=== PATIENT | male | born 1945 | race Caucasian/White ===

== ENCOUNTER → 2017-03-09 | Outpatient (REF) | payer MEDICARE ==
[2017-03-09 13:07] LABS: MEAN CORPUSCULAR HEMOGLOBIN 31.2 pg (27.0-33.0); MEAN CORPUSCULAR HGB CONC 33.5 g/dl (32.0-36.5); MEAN CORPUSCULAR VOLUME 93.1 fl (80.0-96.0); RED CELL DISTRIBUTION WIDTH 12.6 % (11.5-14.5); WHITE BLOOD COUNT 6.5 K/mm3 (4.0-10.0)
[2017-03-09 21:43] LABS: ALBUMIN 4.3 GM/DL (3.2-5.2); ALBUMIN/GLOBULIN RATIO 1.39 (1.00-1.93); ALKALINE PHOSPHATASE 84 U/L (45-117); ALT/SGPT 27 U/L (12-78); ANION GAP 7 MEQ/L (8-16); AST/SGOT 17 U/L (15-37); BILIRUBIN,TOTAL 0.9 MG/DL (0.2-1.0); BLOOD UREA NITROGEN 20 MG/DL (7-18); CALCIUM LEVEL 8.9 MG/DL (8.8-10.2); CARBON DIOXIDE LEVEL 30 MEQ/L (21-32); CHLORIDE LEVEL 105 MEQ/L (98-107); CHOLESTEROL LEVEL 186 MG/DL (<200); GLOMERULAR FILTRATION RATE > 60.0 (>42); GLUCOSE, FASTING 86 MG/DL (83-110); POTASSIUM SERUM 4.5 MEQ/L (3.5-5.1); SODIUM LEVEL 142 MEQ/L (136-145); TOTAL PROTEIN 7.4 GM/DL (6.4-8.2); TRIGLYCERIDES LEVEL 104 MG/DL (<150)
== END ==
LOC: M SFHCADAM 10:00
PROVIDERS: ATTEND Family Medicine
DX: G43.001 Migraine without aura, not intractable, with status migrainosus (principal); I48.0 Paroxysmal atrial fibrillation; E78.5 Hyperlipidemia, unspecified; R97.20 Elevated prostate specific antigen [PSA]
CPT/HCPCS: 80053; 80061; 84153; 85027; G0463

== ENCOUNTER → 2017-05-11 | Outpatient (CLI) | payer MEDICARE ==
--- NOTE | 2017-05-11 12:54 | REP ---
PA and lateral chest: Comparison is 04/18/2012. There is are focal subsegmental infiltrates in the lateral segment right middle lobe as an interval change. There is a small right perihilar subsegmental infiltrate as an interval change. There is a small subsegmental infiltrate peripherally in the left lung as an interval change. The remainder of the lung cast are clear and unchanged. There are no pleural effusions. Cardiac size is normal. There are annuloplasty devices as an interval change. The lucius, mediastinum, and bony thorax are otherwise unremarkable. Impression: Multifocal bilateral subsegmental infiltrates as described. No pleural effusions. New annuloplasty devices. There are surgical clips in the abdominal right upper quadrant, unchanged. Signed by Rodriguez Jones MD 05/11/2017 12:45 P
== END ==
LOC: M ADAMS 10:38
PROVIDERS: ATTEND Family Medicine
DX: J18.9 Pneumonia, unspecified organism (principal)
CPT/HCPCS: 71020; G0463

== ENCOUNTER → 2017-07-17 | Outpatient (CLI) | payer MEDICARE ==
--- NOTE | 2017-07-17 09:27 | REP ---
Chest x-ray: Two views. History: Follow up community-acquired pneumonia. Comparison chest x-ray is from May 11, 2017. Findings: The lungs are well inflated and now clear. Heart is not enlarged. The patient is status post mitral valve replacement. A clamp like metallic device is seen along the left atrial appendage segment of the left heart border. This is unchanged. Heart is not enlarged. Pulmonary vasculature is not increased. There are clips in right upper quadrant of the abdomen. Biapical pleural thickening is seen unchanged. Impression: No active disease. Signed by Monty Hough MD 07/17/2017 10:56 A
== END ==
LOC: M ADAMS 08:55
PROVIDERS: ATTEND Physician Assistant
DX: J18.9 Pneumonia, unspecified organism (principal)

== ENCOUNTER → 2017-08-12 | Outpatient (CLI) | payer MEDICARE ==
--- NOTE | 2017-08-12 18:53 | REP ---
Clinical: Cough and fever. Technique: PA and lateral. Comparison: 07/17/2017. Findings: Mediastinum and cardiac silhouette are stable. The patient is status post mitral valve repair and clamp along the atrial appendage which remain stable. Lung cast demonstrate chronic changes a subtle right lower lobe opacity cannot be excluded. No effusion. No pneumothorax. Biapical scarring remains stable. Skeletal structures are intact. Impression: Cannot exclude subtle right lower lobe opacity. Signed by Dario Tracy MD 08/12/2017 06:44 P
== END ==
LOC: M RAD 18:18
PROVIDERS: ATTEND Physician Assistant
DX: R91.8 Other nonspecific abnormal finding of lung field (principal)

== ENCOUNTER → 2017-10-05 | Outpatient (REF) | payer MEDICARE ==
[2017-10-05 13:48] LABS: BLOOD UREA NITROGEN 19 MG/DL (7-18); CREATININE FOR GFR 1.06 MG/DL (0.70-1.30); GLOMERULAR FILTRATION RATE > 60.0 (>42)
== END ==
LOC: M LABDRAW1 11:09
PROVIDERS: ATTEND Family Medicine
DX: E78.4 Other hyperlipidemia (principal)

== ENCOUNTER → 2017-10-09 | Outpatient (CLI) | payer MEDICARE ==
[~2017-10-09] MED LIST: ISOVUE-370 76% 100ML VIAL (Q9967) As Ordered ONE
--- NOTE | 2017-10-09 12:00 | REP ---
Clinical: Recurrent pneumonia. Technique: Axial contrast enhanced images from the thoracic inlet to the upper abdomen using 100 ml Isovue 370 intravenous contrast material with coronal and sagittal re-formations. Findings: Small to moderate areas of presumed biapical scarring are appreciated along with mild chronic age related bronchiectasis. Area of chronic scarring in the subpleural right middle lobe (images 60 - 72) is identified. Few scattered, subtle areas of non solid ground-glass opacity in the lingula, basilar right middle lobe mid posterior left lower lobe and right are nonspecific findings and may represent residua from prior infiltrates, but small areas of acute pneumonia cannot be excluded and should be correlated clinically. No adenopathy. No significant consolidation, effusion, or pneumothorax. Mediastinum demonstrates normal thoracic aorta and evidence for prior mitral valve repair without cardiomegaly or pericardial effusion. Surrounding musculoskeletal structures are intact. Impression: Relatively chronic-appearing changes as described above. Few scattered ground-glass opacities likely represent chronic changes related to old infiltrates and less likely areas of acute pneumonia. However, correlation is recommended. Signed by Dario Tracy MD 10/09/2017 11:50 A
== END ==
LOC: M RAD 10:50
PROVIDERS: ATTEND Physician Assistant
DX: J18.9 Pneumonia, unspecified organism (principal)
CPT/HCPCS: 71260; Q9967

== ENCOUNTER 2018-03-31 09:11 | Emergency (ER) | payer MEDICARE ==
[2018-03-31 10:06] LABS: BASO % 0.3 % (0.0-1.0); EOS # 0.1 10^3/uL (0.0-0.50); EOS % 0.7 % (0.0-3.0); HEMATOCRIT 51.8 % (42.0-52.0); HEMOGLOBIN 18.5 g/dl (13.5-17.5); IMMATURE GRANULOCYTE % 0.4 % (0-3.0); LYMPH # 1.8 10^3/uL (1.5-4.5); LYMPH % 13.2 % (24.0-44.0); MEAN CORPUSCULAR HEMOGLOBIN 31.5 pg (27.0-33.0); MEAN CORPUSCULAR HGB CONC 35.7 g/dl (32.0-36.5); MEAN CORPUSCULAR VOLUME 88.2 fl (80.0-96.0); MONO # 1.4 10^3/uL (0.0-0.8); NEUTROPHILS # 10.3 10^3/uL (1.8-7.7); NEUTROPHILS % 75.4 % (36.0-66.0); PLATELET COUNT, AUTOMATED 170 10^3/uL (150-450); RED BLOOD COUNT 5.87 10^6/uL (4.30-6.10); RED CELL DISTRIBUTION WIDTH 12.4 % (11.5-14.5); WHITE BLOOD COUNT 13.6 10^3/uL (4.0-10.0)
[2018-03-31 10:33] LABS: ANION GAP 8 MEQ/L (8-16); BLOOD UREA NITROGEN 17 MG/DL (7-18); CALCIUM LEVEL 9.7 MG/DL (8.8-10.2); CARBON DIOXIDE LEVEL 27 MEQ/L (21-32); CHLORIDE LEVEL 101 MEQ/L (98-107); CPK CREATINE PHOSPHOKINASE 41 U/L (39-308); CREATININE FOR GFR 1.02 MG/DL (0.70-1.30); GLOMERULAR FILTRATION RATE > 60.0 (>42); GLUCOSE, FASTING 115 MG/DL (70-100); SODIUM LEVEL 136 MEQ/L (136-145); TROPONIN I < 0.02 NG/ML (< 0.10)
[2018-03-31 10:34] LABS: CK-MB VALUE MASS 1.1 NG/ML (<3.6); MB/CK RELATIVE INDEX 2.68 (< OR =4); NT-PRO BNP 985 PG/ML (<450)
[2018-04-03 00:09] LABS: Lyme Disease IgG/IgM Antibodie <0.91 ISR (0.00-0.90); Lyme Disease IgM Ab Quantitati <0.80 index (0.00-0.79)
== END 2018-03-31 15:10 | disposition home or self-care (01) ==
LOC: M ED 09:11
DX: G47.00 Insomnia, unspecified (principal); M79.606 Pain in leg, unspecified; I48.91 Unspecified atrial fibrillation; I67.2 Cerebral atherosclerosis; G31.9 Degenerative disease of nervous system, unspecified; Z98.890 Other specified postprocedural states; Z79.82 Long term (current) use of aspirin; Z88.1 Allergy status to other antibiotic agents; Z88.8 Allergy status to other drugs, medicaments and biological substances
CPT/HCPCS: 70551

== ENCOUNTER 2018-04-02 08:22 | Emergency (ER) | payer MEDICARE | END 2018-04-02 10:38 | disposition home or self-care (01) | LOC: M ED 08:22 | DX: M48.061 Spinal stenosis, lumbar region without neurogenic claudication (principal); M51.26 Other intervertebral disc displacement, lumbar region; R26.89 Other abnormalities of gait and mobility; I48.91 Unspecified atrial fibrillation; Z88.1 Allergy status to other antibiotic agents; Z79.899 Other long term (current) drug therapy; Z79.82 Long term (current) use of aspirin | CPT/HCPCS: 72131 ==

== ENCOUNTER → 2018-04-03 | Outpatient (REF) | payer MEDICARE ==
[2018-04-03 19:53] LABS: BASO % 0.2 % (0.0-1.0); EOS # 0.1 10^3/uL (0.0-0.50); EOS % 0.5 % (0.0-3.0); HEMATOCRIT 52.1 % (42.0-52.0); HEMOGLOBIN 18.3 g/dl (13.5-17.5); LYMPH # 2.2 10^3/uL (1.5-4.5); LYMPH % 11.9 % (24.0-44.0); MEAN CORPUSCULAR HEMOGLOBIN 31.7 pg (27.0-33.0); MEAN CORPUSCULAR HGB CONC 35.1 g/dl (32.0-36.5); MEAN CORPUSCULAR VOLUME 90.1 fl (80.0-96.0); MONO % 11.9 % (0.0-5.0); NEUTROPHILS # 13.6 10^3/uL (1.8-7.7); NEUTROPHILS % 74.5 % (36.0-66.0); PLATELET COUNT, AUTOMATED 223 10^3/uL (150-450); RED BLOOD COUNT 5.78 10^6/uL (4.30-6.10); RED CELL DISTRIBUTION WIDTH 12.6 % (11.5-14.5); WHITE BLOOD COUNT 18.2 10^3/uL (4.0-10.0)
[2018-04-03 20:01] LABS: C REACTIVE PROTEIN QUANTITATIV 1.42 MG/DL (0.00-0.30)
[2018-04-03 20:13] LABS: MONO # 2.2 10^3/uL (0.0-0.8); POSITIVE DIFF POS FLAG; SUSPECT SAMPLE POS FLAG
[2018-04-03 20:30] LABS: ERYTHROCYTE SEDIMENTATION RATE 2 mm/hr (0-20)
== END ==
LOC: M SFHCADAM 12:07
DX: M54.5 Low back pain (principal); R26.9 Unspecified abnormalities of gait and mobility; G47.01 Insomnia due to medical condition
CPT/HCPCS: 86140

== ENCOUNTER 2018-04-05 09:13 | Inpatient (IN) | payer MEDICARE ==
[2018-04-05] MEDS: VITAMIN D 1,000 INTERNATIONAL UNITS TABLET PO (09:00)
[2018-04-05] MEDS: ENOXAPARIN 40 MG/0.4 ML SYRINGE (J1650) SC (09:00)
[2018-04-05] MEDS: ASPIRIN 81 MG ENTERIC TAB PO (09:00)
[2018-04-05 10:05] LABS: VENOUS BASE EXCESS 0.8 (-2.0-2.0); VENOUS HCO3 23.9 MEQ/L (23.0-27.0); VENOUS O2 SATURATION 97.1 % (60.0-80.0); VENOUS PARTIAL PRESSURE CO2 34.4 mmHg (38.0-50.0); VENOUS PARTIAL PRESSURE O2 86.7 mmHg (30.0-50.0); VENOUS PH 7.459 UNITS (7.330-7.430); VENOUS STANDARD HCO3 25.1 MEQ/L; VENOUS TOTAL CO2 24.9 MEQ/L (24.0-28.0)
[2018-04-05 10:12] LABS: BASO # 0.1 10^3/uL (0.0-0.2); BASO % 0.4 % (0.0-1.0); EOS # 0.1 10^3/uL (0.0-0.50); EOS % 0.8 % (0.0-3.0); HEMATOCRIT 45.8 % (42.0-52.0); HEMOGLOBIN 16.9 g/dl (13.5-17.5); IMMATURE GRANULOCYTE % 1.1 % (0-3.0); LYMPH % 12.6 % (24.0-44.0); MEAN CORPUSCULAR HEMOGLOBIN 31.9 pg (27.0-33.0); MEAN CORPUSCULAR VOLUME 86.6 fl (80.0-96.0); NEUTROPHILS # 11.3 10^3/uL (1.8-7.7); NEUTROPHILS % 72.1 % (36.0-66.0); PLATELET COUNT, AUTOMATED 189 10^3/uL (150-450); RED BLOOD COUNT 5.29 10^6/uL (4.30-6.10); RED CELL DISTRIBUTION WIDTH 12.1 % (11.5-14.5); WHITE BLOOD COUNT 15.7 10^3/uL (4.0-10.0)
[2018-04-05 10:14] LABS: POSITIVE DIFF POS FLAG
[2018-04-05 10:15] LABS: MEAN CORPUSCULAR HGB CONC 36.9 g/dl (32.0-36.5)
[2018-04-05 10:22] LABS: INR 1.03; PROTHROMBIN TIME 13.6 SECONDS (12.4-14.5)
[2018-04-05 10:24] LABS: OSMOLALITY SERUM 268 MOSM/KG (280-301)
[2018-04-05 10:28] LABS: AMMONIA 21 uMOL/L (<32)
[2018-04-05 10:35] LABS: ACETAMINOPHEN LEVEL < 2.0 UG/ML (10.0-30.0); ALBUMIN 3.9 GM/DL (3.2-5.2); ALBUMIN/GLOBULIN RATIO 1.15 (1.00-1.93); ALKALINE PHOSPHATASE 102 U/L (45-117); ALT/SGPT 39 U/L (12-78); ANION GAP 9 MEQ/L (8-16); AST/SGOT 24 U/L (7-37); BILIRUBIN,DIRECT 0.5 MG/DL (0.0-0.2); BILIRUBIN,TOTAL 1.4 MG/DL (0.2-1.0); BLOOD UREA NITROGEN 23 MG/DL (7-18); CALCIUM LEVEL 8.6 MG/DL (8.8-10.2); CARBON DIOXIDE LEVEL 25 MEQ/L (21-32); CHLORIDE LEVEL 94 MEQ/L (98-107); CPK CREATINE PHOSPHOKINASE 57 U/L (39-308); CREATININE FOR GFR 0.79 MG/DL (0.70-1.30); GLOMERULAR FILTRATION RATE > 60.0 (>42); GLUCOSE, FASTING 109 MG/DL (70-100); SALICYLATE LEVEL < 1.7 MG/DL (5.0-30.0); SODIUM LEVEL 128 MEQ/L (136-145); TOTAL PROTEIN 7.3 GM/DL (6.4-8.2); TROPONIN I < 0.02 NG/ML (< 0.10)
[2018-04-05 10:39] LABS: ETHYL ALCOHOL (ETHANOL) < 0.003 % (0.000-0.010)
[2018-04-05] MEDS: LABETALOL HCL 100 MG/20 ML VIAL IV (10:52)
[2018-04-05 11:06] LABS: CK-MB VALUE MASS 1.7 NG/ML (<3.6); MAGNESIUM LEVEL 2.3 MG/DL (1.8-2.4); MB/CK RELATIVE INDEX 2.98 (< OR =4)
[2018-04-05 11:07] LABS: THYROID STIMULATING HORMONE 0.638 uIU/ML (0.358-3.740)
[2018-04-05 11:12] LABS: APPEARANCE, URINE HAZY (CLEAR); BACTERIA, URINE AUTO NEGATIVE (NEGATIVE); BILIRUBIN, URINE AUTO NEGATIVE (NEGATIVE); BLOOD, URINE BLOOD 2+ (NEGATIVE); COLOR, URINE YELLOW (YELLOW); GLUCOSE, URINE (UA) AUTO 1+ mg/dL (NEGATIVE); KETONE, URINE AUTO NEGATIVE (NEGATIVE); LEUKOCYTE ESTERASE, URINE AUTO NEGATIVE (NEGATIVE); MUCUS, URINE SMALL (NEGATIVE); NITRITE, URINE AUTO NEGATIVE (NEGATIVE); PROTEIN, URINE AUTO 2+ mg/dL (NEGATIVE); RBC, URINE AUTO 33 /HPF (0-3); SPECIFIC GRAVITY URINE AUTO 1.027 (1.002-1.035); SQUAMOUS EPITHELIAL CELL UR AU 0 /HPF (0-6); WBC, URINE AUTO 3 /HPF (0-3)
[2018-04-05 11:37] LABS: AMPHETAMINES LEVEL URINE NEGATIVE (NEGATIVE); BARBITURATES URINE NEGATIVE (NEGATIVE); BENZODIAZEPINES URINE NEGATIVE (NEGATIVE); CANNABINOIDS URINE NEGATIVE (NEGATIVE); COCAINE METABOLITE URINE NEGATIVE (NEGATIVE); METHADONE URINE NEGATIVE (NEGATIVE); OPIATES URINE NEGATIVE (NEGATIVE); PHENCYCLIDINE URINE NEGATIVE (NEGATIVE)
[2018-04-05] MEDS ORDERED: NORCO, ANEXSIA 5/325MG TABLET (HYDROcodone/ACETAMINOPHEN) PO (15:45)
[2018-04-05] MEDS ORDERED: ACETAMINOPHEN 500 MG TAB PO (15:45)
[2018-04-05] MEDS ORDERED: ONDANSETRON 4 MG TAB (S0181) PO (15:45)
[2018-04-05] MEDS: amLODIPine 5 MG TAB PO (16:21)
[2018-04-05] MEDS: hydrALAZINE INJ 20 MG/ML VIAL IV (16:55)
[2018-04-05] MEDS ORDERED: SLF 3 ML SYR IV (19:00)
[2018-04-05] MEDS: rOPINIRole 0.25 MG TAB(REQUIP) PO (21:14)
[2018-04-05] MEDS: SENOKOT S TAB PO (21:14)
[2018-04-05] MEDS: SLF 3 ML SYR IV (21:14)
[2018-04-05] MEDS: zolPIDEM TARTRATE 5 MG TAB PO (22:28)
[2018-04-05 22:42] LABS: OSMOLALITY URINE 912 MOSM/KG (500-800)
[2018-04-05 22:55] LABS: SODIUM,RANDOM URINE 45 MEQ/L
[2018-04-06] MEDS: SLF 3 ML SYR IV ×3 (05:21→21:21)
[2018-04-06] MEDS: ASPIRIN 81 MG ENTERIC TAB PO (08:16)
[2018-04-06] MEDS: SENOKOT S TAB PO ×2 (08:16→21:20)
[2018-04-06] MEDS: VITAMIN D 1,000 INTERNATIONAL UNITS TABLET PO (08:16)
[2018-04-06] MEDS: amLODIPine 5 MG TAB PO (08:17)
[2018-04-06] MEDS: ENOXAPARIN 40 MG/0.4 ML SYRINGE (J1650) SC (08:17)
[2018-04-06 11:49] LABS: CSF RBC < 2 10^3/uL (<2)
[2018-04-06 11:50] LABS: CSF TUBE# CELL CNT TUBE 2; CSF WBC 3 /uL (0-10)
[2018-04-06 11:51] LABS: APPEARANCE, CSF CLEAR (CLEAR); COLOR, CSF COLORLESS (COLORLESS); CSF DIFF IF INDICATED? NO (NO)
[2018-04-06 11:58] LABS: CSF TUBE# GLU TUBE 1; CSF TUBE# TP TUBE 1; GLUCOSE CSF 67 MG/DL (40-75)
[2018-04-06 15:35] LABS: BASO # 0.1 10^3/uL (0.0-0.2); BASO % 0.3 % (0.0-1.0); EOS # 0.2 10^3/uL (0.0-0.50); HEMATOCRIT 49.7 % (42.0-52.0); HEMOGLOBIN 17.9 g/dl (13.5-17.5); IMMATURE GRANULOCYTE % 1.2 % (0-3.0); LYMPH # 2.1 10^3/uL (1.5-4.5); LYMPH % 13.4 % (24.0-44.0); MEAN CORPUSCULAR HEMOGLOBIN 31.3 pg (27.0-33.0); MONO # 1.7 10^3/uL (0.0-0.8); MONO % 10.6 % (0.0-5.0); NEUTROPHILS # 11.5 10^3/uL (1.8-7.7); NEUTROPHILS % 73.5 % (36.0-66.0); PLATELET COUNT, AUTOMATED 195 10^3/uL (150-450); RED BLOOD COUNT 5.71 10^6/uL (4.30-6.10); WHITE BLOOD COUNT 15.6 10^3/uL (4.0-10.0)
[2018-04-06 15:41] LABS: ALBUMIN 4.1 GM/DL (3.2-5.2); ALBUMIN/GLOBULIN RATIO 1.11 (1.00-1.93); ALKALINE PHOSPHATASE 109 U/L (45-117); ALT/SGPT 45 U/L (12-78); ANION GAP 5 MEQ/L (8-16); AST/SGOT 25 U/L (7-37); BILIRUBIN,TOTAL 1.5 MG/DL (0.2-1.0); BLOOD UREA NITROGEN 22 MG/DL (7-18); CALCIUM LEVEL 9.1 MG/DL (8.8-10.2); CARBON DIOXIDE LEVEL 28 MEQ/L (21-32); CHLORIDE LEVEL 91 MEQ/L (98-107); GLOMERULAR FILTRATION RATE > 60.0 (>42); GLUCOSE, FASTING 126 MG/DL (70-100); MAGNESIUM LEVEL 2.4 MG/DL (1.8-2.4); POTASSIUM SERUM 4.1 MEQ/L (3.5-5.1); SODIUM LEVEL 124 MEQ/L (136-145); TOTAL PROTEIN 7.8 GM/DL (6.4-8.2)
[2018-04-06] MEDS: IMMUNE GLOBULIN 10% 10GM 100ML 30 GM in APPROPRIATE DILUENT 1 EA IV (16:52)
[2018-04-06] MEDS: rOPINIRole 0.25 MG TAB(REQUIP) PO (21:20)
[2018-04-06] MEDS: zolPIDEM TARTRATE 5 MG TAB PO (21:21)
[2018-04-07 04:59] LABS: ALBUMIN 3.5 GM/DL (3.2-5.2); ALBUMIN/GLOBULIN RATIO 0.76 (1.00-1.93); ALKALINE PHOSPHATASE 96 U/L (45-117); ALT/SGPT 39 U/L (12-78); ANION GAP 8 MEQ/L (8-16); AST/SGOT 22 U/L (7-37); BILIRUBIN,TOTAL 1.6 MG/DL (0.2-1.0); BLOOD UREA NITROGEN 20 MG/DL (7-18); CALCIUM LEVEL 8.5 MG/DL (8.8-10.2); CARBON DIOXIDE LEVEL 24 MEQ/L (21-32); CHLORIDE LEVEL 90 MEQ/L (98-107); CREATININE FOR GFR 0.69 MG/DL (0.70-1.30); GLOMERULAR FILTRATION RATE > 60.0 (>42); GLUCOSE, FASTING 117 MG/DL (70-100); POTASSIUM SERUM 3.9 MEQ/L (3.5-5.1); SODIUM LEVEL 122 MEQ/L (136-145); TOTAL PROTEIN 8.1 GM/DL (6.4-8.2)
[2018-04-07 05:06] LABS: HEMATOCRIT 45.7 % (42.0-52.0); HEMOGLOBIN 16.8 g/dl (13.5-17.5); MEAN CORPUSCULAR HEMOGLOBIN 31.6 pg (27.0-33.0); MEAN CORPUSCULAR HGB CONC 36.8 g/dl (32.0-36.5); MEAN CORPUSCULAR VOLUME 86.1 fl (80.0-96.0); PLATELET COUNT, AUTOMATED 162 10^3/uL (150-450); RED BLOOD COUNT 5.31 10^6/uL (4.30-6.10); RED CELL DISTRIBUTION WIDTH 11.9 % (11.5-14.5); WHITE BLOOD COUNT 14.2 10^3/uL (4.0-10.0)
[2018-04-07] MEDS: SLF 3 ML SYR IV ×3 (05:42→20:42)
[2018-04-07] MEDS: amLODIPine 5 MG TAB PO (09:05)
[2018-04-07] MEDS: ASPIRIN 81 MG ENTERIC TAB PO (09:05)
[2018-04-07] MEDS: SENOKOT S TAB PO ×2 (09:05→20:39)
[2018-04-07] MEDS: VITAMIN D 1,000 INTERNATIONAL UNITS TABLET PO (09:05)
[2018-04-07] MEDS: ENOXAPARIN 40 MG/0.4 ML SYRINGE (J1650) SC (09:05)
[2018-04-07 10:13] LABS: OSMOLALITY SERUM 260 MOSM/KG (280-301)
[2018-04-07] MEDS: CARVedilol 3.125 MG TAB PO ×2 (10:53→20:40)
[2018-04-07 11:41] LABS: URIC ACID 2.3 MG/DL (3.5-7.2)
[2018-04-07] MEDS: IMMUNE GLOBULIN 10% 10GM 100ML 30 GM in APPROPRIATE DILUENT 1 EA IV (14:19)
[2018-04-07 14:50] LABS: OSMOLALITY URINE 691 MOSM/KG (500-800)
[2018-04-07 15:01] LABS: CREATININE,RANDOM URINE 91.8 MG/DL; SODIUM,RANDOM URINE 47 MEQ/L
[2018-04-07] MEDS: NS 1,000 ML IV (15:15)
[2018-04-07 16:38] LABS: ANION GAP 5 MEQ/L (8-16); BLOOD UREA NITROGEN 23 MG/DL (7-18); CALCIUM LEVEL 8.7 MG/DL (8.8-10.2); CARBON DIOXIDE LEVEL 29 MEQ/L (21-32); CHLORIDE LEVEL 88 MEQ/L (98-107); GLOMERULAR FILTRATION RATE > 60.0 (>42); GLUCOSE, FASTING 91 MG/DL (70-100); POTASSIUM SERUM 3.9 MEQ/L (3.5-5.1); SODIUM LEVEL 122 MEQ/L (136-145)
[2018-04-07 20:29] LABS: ANION GAP 8 MEQ/L (8-16); BLOOD UREA NITROGEN 23 MG/DL (7-18); CALCIUM LEVEL 8.5 MG/DL (8.8-10.2); CARBON DIOXIDE LEVEL 24 MEQ/L (21-32); CHLORIDE LEVEL 90 MEQ/L (98-107); GLOMERULAR FILTRATION RATE > 60.0 (>42); GLUCOSE, FASTING 118 MG/DL (70-100); POTASSIUM SERUM 3.7 MEQ/L (3.5-5.1); SODIUM LEVEL 122 MEQ/L (136-145)
[2018-04-07] MEDS: rOPINIRole 0.25 MG TAB(REQUIP) PO (20:40)
[2018-04-07] MEDS: zolPIDEM TARTRATE 5 MG TAB PO (21:30)
[2018-04-07] MEDS: POTASSIUM CHLORIDE 10 MEQ SR TABLET PO (22:11)
[2018-04-07] MEDS: FUROSEMIDE 40 MG/4 ML VIAL (J1940) IV (22:11)
[2018-04-08] MEDS: NS 1,000 ML IV (01:33)
[2018-04-08 04:43] LABS: HEMATOCRIT 48.5 % (42.0-52.0); HEMOGLOBIN 17.8 g/dl (13.5-17.5); MEAN CORPUSCULAR HEMOGLOBIN 31.7 pg (27.0-33.0); MEAN CORPUSCULAR HGB CONC 36.7 g/dl (32.0-36.5); MEAN CORPUSCULAR VOLUME 86.3 fl (80.0-96.0); PLATELET COUNT, AUTOMATED 180 10^3/uL (150-450); RED BLOOD COUNT 5.62 10^6/uL (4.30-6.10); RED CELL DISTRIBUTION WIDTH 11.9 % (11.5-14.5); WHITE BLOOD COUNT 11.7 10^3/uL (4.0-10.0)
[2018-04-08 04:56] LABS: ALBUMIN 3.6 GM/DL (3.2-5.2); ALKALINE PHOSPHATASE 103 U/L (45-117); ALT/SGPT 48 U/L (12-78); ANION GAP 7 MEQ/L (8-16); AST/SGOT 29 U/L (7-37); BILIRUBIN,TOTAL 1.3 MG/DL (0.2-1.0); BLOOD UREA NITROGEN 22 MG/DL (7-18); CARBON DIOXIDE LEVEL 27 MEQ/L (21-32); CHLORIDE LEVEL 89 MEQ/L (98-107); CREATININE FOR GFR 0.97 MG/DL (0.70-1.30); GLOMERULAR FILTRATION RATE > 60.0 (>42); GLUCOSE, FASTING 106 MG/DL (70-100); POTASSIUM SERUM 3.9 MEQ/L (3.5-5.1); SODIUM LEVEL 123 MEQ/L (136-145); TOTAL PROTEIN 9.6 GM/DL (6.4-8.2)
[2018-04-08] MEDS: SLF 3 ML SYR IV ×3 (05:09→22:00)
[2018-04-08] MEDS: SENOKOT S TAB PO ×2 (09:12→20:56)
[2018-04-08] MEDS: ASPIRIN 81 MG ENTERIC TAB PO (09:13)
[2018-04-08] MEDS: amLODIPine 5 MG TAB PO (09:13)
[2018-04-08] MEDS: ENOXAPARIN 40 MG/0.4 ML SYRINGE (J1650) SC (09:14)
[2018-04-08] MEDS: VITAMIN D 1,000 INTERNATIONAL UNITS TABLET PO (09:14)
[2018-04-08] MEDS: CARVedilol 3.125 MG TAB PO (09:16)
[2018-04-08 13:23] LABS: ANION GAP 7 MEQ/L (8-16); BLOOD UREA NITROGEN 27 MG/DL (7-18); CALCIUM LEVEL 8.8 MG/DL (8.8-10.2); CARBON DIOXIDE LEVEL 27 MEQ/L (21-32); CHLORIDE LEVEL 89 MEQ/L (98-107); CREATININE FOR GFR 1.05 MG/DL (0.70-1.30); GLOMERULAR FILTRATION RATE > 60.0 (>42); GLUCOSE, FASTING 139 MG/DL (70-100); POTASSIUM SERUM 3.8 MEQ/L (3.5-5.1); SODIUM LEVEL 123 MEQ/L (136-145)
[2018-04-08] MEDS: IMMUNE GLOBULIN 10% 10GM 100ML 30 GM in APPROPRIATE DILUENT 1 EA IV (14:08)
[2018-04-08] MEDS: SODIUM CHLORIDE 1 GM TAB PO ×2 (16:20→20:56)
[2018-04-08] MEDS: FUROSEMIDE 40 MG TAB PO (17:53)
[2018-04-08 20:16] LABS: ANION GAP 9 MEQ/L (8-16); BLOOD UREA NITROGEN 28 MG/DL (7-18); CALCIUM LEVEL 8.6 MG/DL (8.8-10.2); CARBON DIOXIDE LEVEL 24 MEQ/L (21-32); CHLORIDE LEVEL 91 MEQ/L (98-107); CREATININE FOR GFR 1.18 MG/DL (0.70-1.30); GLOMERULAR FILTRATION RATE > 60.0 (>42); GLUCOSE, FASTING 134 MG/DL (70-100); POTASSIUM SERUM 3.5 MEQ/L (3.5-5.1); SODIUM LEVEL 124 MEQ/L (136-145)
[2018-04-08] MEDS: CARVedilol 6.25 MG TAB PO (20:56)
[2018-04-08] MEDS: rOPINIRole 0.25 MG TAB(REQUIP) PO (20:56)
[2018-04-08] MEDS: traZODone 100 MG TAB PO (20:57)
[2018-04-08] MEDS: POTASSIUM CHLORIDE 10 MEQ SR TABLET PO (23:18)
[2018-04-09 04:57] LABS: HEMATOCRIT 43.3 % (42.0-52.0); MEAN CORPUSCULAR HEMOGLOBIN 31.7 pg (27.0-33.0); MEAN CORPUSCULAR VOLUME 85.9 fl (80.0-96.0); PLATELET COUNT, AUTOMATED 175 10^3/uL (150-450); RED BLOOD COUNT 5.04 10^6/uL (4.30-6.10); RED CELL DISTRIBUTION WIDTH 11.9 % (11.5-14.5); WHITE BLOOD COUNT 8.3 10^3/uL (4.0-10.0)
[2018-04-09 04:58] LABS: ANION GAP 6 MEQ/L (8-16); BLOOD UREA NITROGEN 27 MG/DL (7-18); CALCIUM LEVEL 8.5 MG/DL (8.8-10.2); CARBON DIOXIDE LEVEL 27 MEQ/L (21-32); CHLORIDE LEVEL 92 MEQ/L (98-107); CREATININE FOR GFR 0.88 MG/DL (0.70-1.30); GLOMERULAR FILTRATION RATE > 60.0 (>42); GLUCOSE, FASTING 110 MG/DL (70-100); POTASSIUM SERUM 4.1 MEQ/L (3.5-5.1); SODIUM LEVEL 125 MEQ/L (136-145)
[2018-04-09] MEDS: SLF 3 ML SYR IV ×3 (05:30→22:00)
[2018-04-09] MEDS: SODIUM CHLORIDE 1 GM TAB PO ×3 (08:20→20:45)
[2018-04-09] MEDS: POTASSIUM CHLORIDE 10 MEQ SR TABLET PO ×2 (08:21→20:45)
[2018-04-09] MEDS: ASPIRIN 81 MG ENTERIC TAB PO (08:21)
[2018-04-09] MEDS: VITAMIN D 1,000 INTERNATIONAL UNITS TABLET PO (08:21)
[2018-04-09] MEDS: SENOKOT S TAB PO ×2 (08:21→20:45)
[2018-04-09] MEDS: CARVedilol 6.25 MG TAB PO ×2 (08:22→20:44)
[2018-04-09] MEDS: ENOXAPARIN 40 MG/0.4 ML SYRINGE (J1650) SC (08:22)
[2018-04-09] MEDS ORDERED: diphenhydrAMINE 25 MG CAP PO (10:45)
[2018-04-09] MEDS: IMMUNE GLOBULIN 10% 10GM 100ML 30 GM in APPROPRIATE DILUENT 1 EA IV (14:08)
[2018-04-09 15:56] LABS: KETONE, URINE AUTO RFX NEGATIVE (NEGATIVE); LEUKOCYTE ESTERASE UR AUTO RFX NEGATIVE (NEGATIVE); NITRITE, URINE AUTO RFX NEGATIVE (NEGATIVE); RBC, URINE AUTO RFX 90 /HPF (0-3); SPECIFIC GRAVITY UR AUTO RFX 1.014 (1.002-1.035); SQUAM EPITHELIAL CELL UR AURFX 0 /HPF (0-6); WBC, URINE AUTO RFX 1 /HPF (0-3)
[2018-04-09] MEDS: QUEtiapine FUMARATE 12.5 MG HALF-TAB PO ×2 (17:05→18:38)
[2018-04-09] MEDS: rOPINIRole 0.25 MG TAB(REQUIP) PO (20:45)
[2018-04-09] MEDS: QUEtiapine FUMARATE 50 MG TAB PO (20:45)
[2018-04-10 00:07] LABS: CSFLYM10 Absent (.); CSFLYM11 Absent (.); CSFLYM12 Negative (.); CSFLYM14 Absent (.); CSFLYM15 Absent (.); CSFLYM16 Absent (.); CSFLYM17 Negative (.); CSFLYM2 Absent (.); CSFLYM3 Absent (.); CSFLYM4 Absent (.); CSFLYM5 Absent (.); CSFLYM6 Present (.); CSFLYM7 Absent (.); CSFLYM8 Absent (.); CSFLYM9 Absent (.)
[2018-04-10 04:55] LABS: HEMOGLOBIN 16.4 g/dl (13.5-17.5); MEAN CORPUSCULAR HEMOGLOBIN 32.1 pg (27.0-33.0); MEAN CORPUSCULAR HGB CONC 37.3 g/dl (32.0-36.5); MEAN CORPUSCULAR VOLUME 86.1 fl (80.0-96.0); PLATELET COUNT, AUTOMATED 149 10^3/uL (150-450); RED BLOOD COUNT 5.11 10^6/uL (4.30-6.10); RED CELL DISTRIBUTION WIDTH 11.7 % (11.5-14.5); WHITE BLOOD COUNT 7.7 10^3/uL (4.0-10.0)
[2018-04-10 05:13] LABS: ANION GAP 5 MEQ/L (8-16); BLOOD UREA NITROGEN 23 MG/DL (7-18); CALCIUM LEVEL 8.7 MG/DL (8.8-10.2); CARBON DIOXIDE LEVEL 25 MEQ/L (21-32); CHLORIDE LEVEL 96 MEQ/L (98-107); CREATININE FOR GFR 0.84 MG/DL (0.70-1.30); GLOMERULAR FILTRATION RATE > 60.0 (>42); GLUCOSE, FASTING 106 MG/DL (70-100); POTASSIUM SERUM 4.1 MEQ/L (3.5-5.1); SODIUM LEVEL 126 MEQ/L (136-145)
[2018-04-10] MEDS: SLF 3 ML SYR IV ×3 (06:00→21:33)
[2018-04-10] MEDS: QUEtiapine FUMARATE 50 MG TAB PO ×2 (08:32→21:32)
[2018-04-10] MEDS: CARVedilol 6.25 MG TAB PO ×2 (08:33→21:31)
[2018-04-10] MEDS: ASPIRIN 81 MG ENTERIC TAB PO (08:34)
[2018-04-10] MEDS: SODIUM CHLORIDE 1 GM TAB PO ×3 (08:34→21:32)
[2018-04-10] MEDS: POTASSIUM CHLORIDE 10 MEQ SR TABLET PO ×2 (08:35→21:32)
[2018-04-10] MEDS: SENOKOT S TAB PO ×2 (08:36→21:32)
[2018-04-10] MEDS: VITAMIN D 1,000 INTERNATIONAL UNITS TABLET PO (08:36)
[2018-04-10] MEDS: ENOXAPARIN 40 MG/0.4 ML SYRINGE (J1650) SC (08:37)
[2018-04-10] MEDS: IMMUNE GLOBULIN 10% 10GM 100ML 30 GM in APPROPRIATE DILUENT 1 EA IV (14:12)
[2018-04-10] MEDS: FUROSEMIDE 40 MG TAB PO (21:31)
[2018-04-10] MEDS: rOPINIRole 0.25 MG TAB(REQUIP) PO (21:32)
[2018-04-11 00:08] LABS: IgG P18 AB Present (.); IgG P23 AB Absent (.); IgG P28 AB Absent (.); IgG P30 AB Absent (.); IgG P39 AB Present (.); IgG P41 AB Present (.); IgG P45 AB Absent (.); IgG P58 AB Absent (.); IgG P66 AB Absent (.); IgG P93 AB Absent (.); IgM P23 AB Absent (.); IgM P39 AB Absent (.); IgM P41 AB Absent (.); LYME IgG WB INTERPRETATION Negative (.); LYME IgM WB INTERPRETATION Negative (.)
[2018-04-11 05:26] LABS: HEMATOCRIT 47.2 % (42.0-52.0); HEMOGLOBIN 17.2 g/dl (13.5-17.5); MEAN CORPUSCULAR HEMOGLOBIN 31.9 pg (27.0-33.0); MEAN CORPUSCULAR HGB CONC 36.4 g/dl (32.0-36.5); MEAN CORPUSCULAR VOLUME 87.6 fl (80.0-96.0); PLATELET COUNT, AUTOMATED 160 10^3/uL (150-450); RED BLOOD COUNT 5.39 10^6/uL (4.30-6.10); RED CELL DISTRIBUTION WIDTH 11.9 % (11.5-14.5); WHITE BLOOD COUNT 7.8 10^3/uL (4.0-10.0)
[2018-04-11] MEDS: SLF 3 ML SYR IV ×3 (05:41→21:21)
[2018-04-11 05:45] LABS: ANION GAP 6 MEQ/L (8-16); BLOOD UREA NITROGEN 27 MG/DL (7-18); CALCIUM LEVEL 8.8 MG/DL (8.8-10.2); CARBON DIOXIDE LEVEL 27 MEQ/L (21-32); CHLORIDE LEVEL 95 MEQ/L (98-107); CREATININE FOR GFR 0.95 MG/DL (0.70-1.30); GLOMERULAR FILTRATION RATE > 60.0 (>42); GLUCOSE, FASTING 106 MG/DL (70-100); SODIUM LEVEL 128 MEQ/L (136-145)
[2018-04-11] MEDS: QUEtiapine FUMARATE 50 MG TAB PO ×2 (08:53→21:30)
[2018-04-11] MEDS: ASPIRIN 81 MG ENTERIC TAB PO (08:53)
[2018-04-11] MEDS: POTASSIUM CHLORIDE 10 MEQ SR TABLET PO ×2 (08:53→21:11)
[2018-04-11] MEDS: VITAMIN D 1,000 INTERNATIONAL UNITS TABLET PO (08:53)
[2018-04-11] MEDS: SODIUM CHLORIDE 1 GM TAB PO ×3 (08:53→21:12)
[2018-04-11] MEDS: CARVedilol 6.25 MG TAB PO ×2 (08:53→21:11)
[2018-04-11] MEDS: SENOKOT S TAB PO ×2 (08:53→21:12)
[2018-04-11] MEDS: ENOXAPARIN 40 MG/0.4 ML SYRINGE (J1650) SC (08:54)
[2018-04-11] MEDS: rOPINIRole 0.25 MG TAB(REQUIP) PO (21:11)
[2018-04-12] MEDS: ACETAMINOPHEN TAB 650MG DOSE (2X325MG) PO (00:47)
[2018-04-12] MEDS: SLF 3 ML SYR IV ×2 (05:20→14:18)
[2018-04-12 05:55] LABS: HEMATOCRIT 45.7 % (42.0-52.0); HEMOGLOBIN 16.2 g/dl (13.5-17.5); MEAN CORPUSCULAR HEMOGLOBIN 31.5 pg (27.0-33.0); MEAN CORPUSCULAR HGB CONC 35.4 g/dl (32.0-36.5); MEAN CORPUSCULAR VOLUME 88.7 fl (80.0-96.0); PLATELET COUNT, AUTOMATED 158 10^3/uL (150-450); RED BLOOD COUNT 5.15 10^6/uL (4.30-6.10); RED CELL DISTRIBUTION WIDTH 11.9 % (11.5-14.5); WHITE BLOOD COUNT 7.1 10^3/uL (4.0-10.0)
[2018-04-12 06:16] LABS: ANION GAP 5 MEQ/L (8-16); BLOOD UREA NITROGEN 30 MG/DL (7-18); CALCIUM LEVEL 8.6 MG/DL (8.8-10.2); CARBON DIOXIDE LEVEL 26 MEQ/L (21-32); CHLORIDE LEVEL 98 MEQ/L (98-107); CREATININE FOR GFR 0.96 MG/DL (0.70-1.30); GLOMERULAR FILTRATION RATE > 60.0 (>42); GLUCOSE, FASTING 95 MG/DL (70-100); POTASSIUM SERUM 4.3 MEQ/L (3.5-5.1); SODIUM LEVEL 129 MEQ/L (136-145)
[2018-04-12] MEDS: CARVedilol 6.25 MG TAB PO (09:26)
[2018-04-12] MEDS: VITAMIN D 1,000 INTERNATIONAL UNITS TABLET PO (09:26)
[2018-04-12] MEDS: SENOKOT S TAB PO (09:26)
[2018-04-12] MEDS: QUEtiapine FUMARATE 50 MG TAB PO (09:27)
[2018-04-12] MEDS: SODIUM CHLORIDE 1 GM TAB PO (09:27)
[2018-04-12] MEDS: ASPIRIN 81 MG ENTERIC TAB PO (09:27)
[2018-04-12] MEDS: POTASSIUM CHLORIDE 10 MEQ SR TABLET PO (09:27)
[2018-04-12] MEDS: ENOXAPARIN 40 MG/0.4 ML SYRINGE (J1650) SC (09:28)
== END 2018-04-12 16:06 | DRG 95 ==
LOC: M ICU 04-07 07:07 → M PCU 04-10 21:45 → M ED 09:13 → M ED INP 15:38 → M PCU 18:23
PROC: 009U3ZX Drainage of Spinal Canal, Percutaneous Approach, Diagnostic (ICD-10-PCS; principal; 2018-04-06)
DX: G61.0 Guillain-Barre syndrome (principal); I67.4 Hypertensive encephalopathy; E87.1 Hypo-osmolality and hyponatremia; E22.2 Syndrome of inappropriate secretion of antidiuretic hormone; G47.01 Insomnia due to medical condition; E55.9 Vitamin D deficiency, unspecified; K72.90 Hepatic failure, unspecified without coma; E78.5 Hyperlipidemia, unspecified; M51.36 Other intervertebral disc degeneration, lumbar region; Z79.82 Long term (current) use of aspirin; Z79.899 Other long term (current) drug therapy; Z88.1 Allergy status to other antibiotic agents

== ENCOUNTER 2018-04-12 16:15 | Inpatient (IN) | payer MEDICARE ==
[~2018-04-12 16:15] MED LIST changes: +BISACODYL 10 MG SUPP PR; +BISACODYL 5 MG TAB PO; +FLEET ENEMA PR; -ISOVUE-370 76% 100ML VIAL (Q9967) As Ordered ONE; +ONDANSETRON 4 MG TAB (S0181) PO
[2018-04-12] MEDS: SODIUM CHLORIDE 1 GM TAB PO ×2 (17:54→20:54)
[2018-04-12] MEDS: QUEtiapine FUMARATE 100 MG TAB PO (20:54)
[2018-04-12] MEDS: rOPINIRole 0.25 MG TAB(REQUIP) PO (20:54)
[2018-04-12] MEDS: SENOKOT S TAB PO (20:54)
[2018-04-12] MEDS: CARVedilol 6.25 MG TAB PO (20:55)
[2018-04-13] MEDS: diphenhydrAMINE 25 MG CAP PO (00:25)
[2018-04-13 07:05] LABS: BASO # 0.1 10^3/uL (0.0-0.2); EOS # 0.2 10^3/uL (0.0-0.50); EOS % 2.7 % (0.0-3.0); HEMATOCRIT 44.8 % (42.0-52.0); HEMOGLOBIN 15.9 g/dl (13.5-17.5); IMMATURE GRANULOCYTE % 1.4 % (0-3.0); LYMPH # 1.9 10^3/uL (1.5-4.5); LYMPH % 27.4 % (24.0-44.0); MEAN CORPUSCULAR HEMOGLOBIN 31.5 pg (27.0-33.0); MEAN CORPUSCULAR HGB CONC 35.5 g/dl (32.0-36.5); MEAN CORPUSCULAR VOLUME 88.9 fl (80.0-96.0); MONO % 13.8 % (0.0-5.0); NEUTROPHILS # 3.7 10^3/uL (1.8-7.7); NEUTROPHILS % 53.7 % (36.0-66.0); PLATELET COUNT, AUTOMATED 152 10^3/uL (150-450); RED BLOOD COUNT 5.04 10^6/uL (4.30-6.10); RED CELL DISTRIBUTION WIDTH 12.1 % (11.5-14.5)
[2018-04-13 07:38] LABS: ALKALINE PHOSPHATASE 96 U/L (45-117); ALT/SGPT 109 U/L (12-78); ANION GAP 6 MEQ/L (8-16); AST/SGOT 56 U/L (7-37); BILIRUBIN,TOTAL 0.5 MG/DL (0.2-1.0); BLOOD UREA NITROGEN 22 MG/DL (7-18); CALCIUM LEVEL 8.5 MG/DL (8.8-10.2); CARBON DIOXIDE LEVEL 27 MEQ/L (21-32); CHLORIDE LEVEL 98 MEQ/L (98-107); CREATININE FOR GFR 0.91 MG/DL (0.70-1.30); GLOMERULAR FILTRATION RATE > 60.0 (>42); GLUCOSE, FASTING 92 MG/DL (70-100); POTASSIUM SERUM 4.2 MEQ/L (3.5-5.1); SODIUM LEVEL 131 MEQ/L (136-145)
[2018-04-13] MEDS: ASPIRIN 81 MG ENTERIC TAB PO (08:30)
[2018-04-13] MEDS: QUEtiapine FUMARATE 25 MG TAB PO (08:30)
[2018-04-13] MEDS: CARVedilol 6.25 MG TAB PO ×2 (08:30→21:03)
[2018-04-13] MEDS: SODIUM CHLORIDE 1 GM TAB PO ×3 (08:30→21:04)
[2018-04-13] MEDS: VITAMIN D 1,000 INTERNATIONAL UNITS TABLET PO (08:30)
[2018-04-13] MEDS: ENOXAPARIN 40 MG/0.4 ML SYRINGE (J1650) SC (08:30)
[2018-04-13] MEDS: SENOKOT S TAB PO ×2 (08:30→21:03)
[2018-04-13] MEDS: MIRALAX *UNIT DOSE* 17GM PACKET PO (08:31)
[2018-04-13] MEDS ORDERED: SODIUM CHLORIDE 3% 500 ML IV (10:15)
[2018-04-13] MEDS: QUEtiapine FUMARATE 100 MG TAB PO (21:03)
[2018-04-13] MEDS: rOPINIRole 0.25 MG TAB(REQUIP) PO (21:04)
[2018-04-13] MEDS: zolPIDEM TARTRATE 5 MG TAB PO (21:42)
[2018-04-14 06:33] LABS: BASO # 0.1 10^3/uL (0.0-0.2); BASO % 0.8 % (0.0-1.0); EOS # 0.2 10^3/uL (0.0-0.50); EOS % 2.5 % (0.0-3.0); HEMATOCRIT 42.9 % (42.0-52.0); HEMOGLOBIN 15.2 g/dl (13.5-17.5); IMMATURE GRANULOCYTE % 1.5 % (0-3.0); LYMPH # 1.8 10^3/uL (1.5-4.5); LYMPH % 27.8 % (24.0-44.0); MEAN CORPUSCULAR HEMOGLOBIN 31.7 pg (27.0-33.0); MEAN CORPUSCULAR HGB CONC 35.4 g/dl (32.0-36.5); MEAN CORPUSCULAR VOLUME 89.6 fl (80.0-96.0); MONO # 0.9 10^3/uL (0.0-0.8); MONO % 13.5 % (0.0-5.0); NEUTROPHILS # 3.5 10^3/uL (1.8-7.7); NEUTROPHILS % 53.9 % (36.0-66.0); PLATELET COUNT, AUTOMATED 158 10^3/uL (150-450); RED BLOOD COUNT 4.79 10^6/uL (4.30-6.10); RED CELL DISTRIBUTION WIDTH 11.9 % (11.5-14.5); WHITE BLOOD COUNT 6.5 10^3/uL (4.0-10.0)
[2018-04-14 07:02] LABS: ALBUMIN 3.1 GM/DL (3.2-5.2); ALBUMIN/GLOBULIN RATIO 0.53 (1.00-1.93); ALKALINE PHOSPHATASE 93 U/L (45-117); ALT/SGPT 109 U/L (12-78); ANION GAP 7 MEQ/L (8-16); AST/SGOT 55 U/L (7-37); BILIRUBIN,TOTAL 0.5 MG/DL (0.2-1.0); BLOOD UREA NITROGEN 22 MG/DL (7-18); CALCIUM LEVEL 8.8 MG/DL (8.8-10.2); CARBON DIOXIDE LEVEL 28 MEQ/L (21-32); CHLORIDE LEVEL 98 MEQ/L (98-107); CREATININE FOR GFR 0.99 MG/DL (0.70-1.30); GLOMERULAR FILTRATION RATE > 60.0 (>42); GLUCOSE, FASTING 89 MG/DL (70-100); POTASSIUM SERUM 3.9 MEQ/L (3.5-5.1); SODIUM LEVEL 133 MEQ/L (136-145)
[2018-04-14] MEDS: MIRALAX *UNIT DOSE* 17GM PACKET PO (08:12)
[2018-04-14] MEDS: SODIUM CHLORIDE 1 GM TAB PO ×3 (08:13→21:26)
[2018-04-14] MEDS: QUEtiapine FUMARATE 25 MG TAB PO (08:13)
[2018-04-14] MEDS: ENOXAPARIN 40 MG/0.4 ML SYRINGE (J1650) SC (08:13)
[2018-04-14] MEDS: SENOKOT S TAB PO ×2 (08:13→21:26)
[2018-04-14] MEDS: CARVedilol 6.25 MG TAB PO ×2 (08:13→21:27)
[2018-04-14] MEDS: ASPIRIN 81 MG ENTERIC TAB PO (08:13)
[2018-04-14] MEDS: VITAMIN D 1,000 INTERNATIONAL UNITS TABLET PO (08:13)
[2018-04-14] MEDS: rOPINIRole 0.25 MG TAB(REQUIP) PO (21:26)
[2018-04-14] MEDS: QUEtiapine FUMARATE 100 MG TAB PO (21:26)
[2018-04-15 06:33] LABS: BASO % 0.7 % (0.0-1.0); EOS # 0.2 10^3/uL (0.0-0.50); EOS % 2.9 % (0.0-3.0); HEMATOCRIT 41.6 % (42.0-52.0); HEMOGLOBIN 14.8 g/dl (13.5-17.5); IMMATURE GRANULOCYTE % 0.9 % (0-3.0); LYMPH # 1.8 10^3/uL (1.5-4.5); LYMPH % 31.5 % (24.0-44.0); MEAN CORPUSCULAR HEMOGLOBIN 31.9 pg (27.0-33.0); MEAN CORPUSCULAR HGB CONC 35.6 g/dl (32.0-36.5); MEAN CORPUSCULAR VOLUME 89.7 fl (80.0-96.0); MONO # 0.8 10^3/uL (0.0-0.8); MONO % 14.2 % (0.0-5.0); NEUTROPHILS # 2.8 10^3/uL (1.8-7.7); NEUTROPHILS % 49.8 % (36.0-66.0); PLATELET COUNT, AUTOMATED 147 10^3/uL (150-450); RED BLOOD COUNT 4.64 10^6/uL (4.30-6.10); RED CELL DISTRIBUTION WIDTH 12.1 % (11.5-14.5); WHITE BLOOD COUNT 5.6 10^3/uL (4.0-10.0)
[2018-04-15 06:55] LABS: ANION GAP 5 MEQ/L (8-16); BLOOD UREA NITROGEN 21 MG/DL (7-18); CALCIUM LEVEL 8.7 MG/DL (8.8-10.2); CARBON DIOXIDE LEVEL 29 MEQ/L (21-32); CHLORIDE LEVEL 101 MEQ/L (98-107); CREATININE FOR GFR 1.06 MG/DL (0.70-1.30); GLOMERULAR FILTRATION RATE > 60.0 (>42); GLUCOSE, FASTING 94 MG/DL (70-100); POTASSIUM SERUM 4.1 MEQ/L (3.5-5.1); SODIUM LEVEL 135 MEQ/L (136-145)
[2018-04-15] MEDS: MIRALAX *UNIT DOSE* 17GM PACKET PO (09:00)
[2018-04-15] MEDS: ASPIRIN 81 MG ENTERIC TAB PO (09:10)
[2018-04-15] MEDS: SENOKOT S TAB PO ×2 (09:10→20:07)
[2018-04-15] MEDS: CARVedilol 6.25 MG TAB PO ×2 (09:10→20:07)
[2018-04-15] MEDS: SODIUM CHLORIDE 1 GM TAB PO ×2 (09:10→20:07)
[2018-04-15] MEDS: ENOXAPARIN 40 MG/0.4 ML SYRINGE (J1650) SC (09:11)
[2018-04-15] MEDS: VITAMIN D 1,000 INTERNATIONAL UNITS TABLET PO (09:11)
[2018-04-15] MEDS: QUEtiapine FUMARATE 25 MG TAB PO (09:15)
[2018-04-15] MEDS: QUEtiapine FUMARATE 100 MG TAB PO (20:06)
[2018-04-15] MEDS: rOPINIRole 0.25 MG TAB(REQUIP) PO (21:00)
[2018-04-16] MEDS: NORCO, ANEXSIA 5/325MG TABLET (HYDROcodone/ACETAMINOPHEN) PO (06:17)
[2018-04-16 07:04] LABS: BASO # 0.1 10^3/uL (0.0-0.2); BASO % 0.8 % (0.0-1.0); EOS # 0.2 10^3/uL (0.0-0.50); EOS % 2.3 % (0.0-3.0); HEMATOCRIT 43.5 % (42.0-52.0); HEMOGLOBIN 15.4 g/dl (13.5-17.5); IMMATURE GRANULOCYTE % 0.8 % (0-3.0); LYMPH # 1.8 10^3/uL (1.5-4.5); LYMPH % 24.9 % (24.0-44.0); MEAN CORPUSCULAR HEMOGLOBIN 32.5 pg (27.0-33.0); MEAN CORPUSCULAR HGB CONC 35.4 g/dl (32.0-36.5); MEAN CORPUSCULAR VOLUME 91.8 fl (80.0-96.0); MONO # 0.8 10^3/uL (0.0-0.8); MONO % 11.9 % (0.0-5.0); NEUTROPHILS # 4.2 10^3/uL (1.8-7.7); NEUTROPHILS % 59.3 % (36.0-66.0); PLATELET COUNT, AUTOMATED 172 10^3/uL (150-450); RED BLOOD COUNT 4.74 10^6/uL (4.30-6.10); RED CELL DISTRIBUTION WIDTH 12.2 % (11.5-14.5); WHITE BLOOD COUNT 7.1 10^3/uL (4.0-10.0)
[2018-04-16 07:32] LABS: ANION GAP 5 MEQ/L (8-16); BLOOD UREA NITROGEN 16 MG/DL (7-18); CALCIUM LEVEL 8.8 MG/DL (8.8-10.2); CARBON DIOXIDE LEVEL 27 MEQ/L (21-32); CHLORIDE LEVEL 102 MEQ/L (98-107); CREATININE FOR GFR 1.03 MG/DL (0.70-1.30); GLOMERULAR FILTRATION RATE > 60.0 (>42); GLUCOSE, FASTING 101 MG/DL (70-100); POTASSIUM SERUM 4.5 MEQ/L (3.5-5.1); SODIUM LEVEL 134 MEQ/L (136-145)
[2018-04-16] MEDS: SENOKOT S TAB PO ×2 (08:24→21:07)
[2018-04-16] MEDS: MIRALAX *UNIT DOSE* 17GM PACKET PO (08:24)
[2018-04-16] MEDS: CARVedilol 6.25 MG TAB PO ×2 (08:25→21:07)
[2018-04-16] MEDS: ENOXAPARIN 40 MG/0.4 ML SYRINGE (J1650) SC (08:25)
[2018-04-16] MEDS: SODIUM CHLORIDE 1 GM TAB PO ×2 (08:25→21:07)
[2018-04-16] MEDS: ASPIRIN 81 MG ENTERIC TAB PO (08:25)
[2018-04-16] MEDS: VITAMIN D 1,000 INTERNATIONAL UNITS TABLET PO (08:25)
[2018-04-16] MEDS: QUEtiapine FUMARATE 25 MG TAB PO (09:06)
[2018-04-16] MEDS: rOPINIRole 0.25 MG TAB(REQUIP) PO (21:07)
[2018-04-16] MEDS: QUEtiapine FUMARATE 100 MG TAB PO (21:08)
[2018-04-16] MEDS: ACETAMINOPHEN TAB 650MG DOSE (2X325MG) PO (21:08)
[2018-04-17 07:01] LABS: BASO # 0.1 10^3/uL (0.0-0.2); BASO % 0.8 % (0.0-1.0); EOS # 0.1 10^3/uL (0.0-0.50); EOS % 2.3 % (0.0-3.0); HEMATOCRIT 45.4 % (42.0-52.0); HEMOGLOBIN 15.8 g/dl (13.5-17.5); IMMATURE GRANULOCYTE % 1.1 % (0-3.0); LYMPH # 1.8 10^3/uL (1.5-4.5); LYMPH % 29.4 % (24.0-44.0); MEAN CORPUSCULAR HEMOGLOBIN 31.9 pg (27.0-33.0); MEAN CORPUSCULAR HGB CONC 34.8 g/dl (32.0-36.5); MEAN CORPUSCULAR VOLUME 91.7 fl (80.0-96.0); MONO # 0.6 10^3/uL (0.0-0.8); NEUTROPHILS # 3.5 10^3/uL (1.8-7.7); NEUTROPHILS % 56.4 % (36.0-66.0); PLATELET COUNT, AUTOMATED 175 10^3/uL (150-450); RED BLOOD COUNT 4.95 10^6/uL (4.30-6.10); RED CELL DISTRIBUTION WIDTH 12.3 % (11.5-14.5); WHITE BLOOD COUNT 6.2 10^3/uL (4.0-10.0)
[2018-04-17 08:46] LABS: ANION GAP 7 MEQ/L (8-16); BLOOD UREA NITROGEN 16 MG/DL (7-18); CALCIUM LEVEL 8.7 MG/DL (8.8-10.2); CARBON DIOXIDE LEVEL 29 MEQ/L (21-32); CHLORIDE LEVEL 101 MEQ/L (98-107); CREATININE FOR GFR 0.89 MG/DL (0.70-1.30); GLOMERULAR FILTRATION RATE > 60.0 (>42); GLUCOSE, FASTING 93 MG/DL (70-100); POTASSIUM SERUM 4.5 MEQ/L (3.5-5.1); SODIUM LEVEL 137 MEQ/L (136-145)
[2018-04-17] MEDS: SODIUM CHLORIDE 1 GM TAB PO ×2 (09:17→21:10)
[2018-04-17] MEDS: ASPIRIN 81 MG ENTERIC TAB PO (09:17)
[2018-04-17] MEDS: QUEtiapine FUMARATE 25 MG TAB PO (09:18)
[2018-04-17] MEDS: CARVedilol 6.25 MG TAB PO ×2 (09:18→21:10)
[2018-04-17] MEDS: ENOXAPARIN 40 MG/0.4 ML SYRINGE (J1650) SC (09:18)
[2018-04-17] MEDS: VITAMIN D 1,000 INTERNATIONAL UNITS TABLET PO (09:18)
[2018-04-17] MEDS: SENOKOT S TAB PO ×2 (09:18→21:00)
[2018-04-17] MEDS: MIRALAX *UNIT DOSE* 17GM PACKET PO (09:18)
[2018-04-17] MEDS: QUEtiapine FUMARATE 100 MG TAB PO (21:10)
[2018-04-17] MEDS: rOPINIRole 0.25 MG TAB(REQUIP) PO (21:10)
[2018-04-18 06:25] LABS: BASO % 0.6 % (0.0-1.0); EOS # 0.1 10^3/uL (0.0-0.50); EOS % 2.2 % (0.0-3.0); HEMATOCRIT 42.5 % (42.0-52.0); IMMATURE GRANULOCYTE % 0.9 % (0-3.0); LYMPH # 1.5 10^3/uL (1.5-4.5); LYMPH % 27.6 % (24.0-44.0); MEAN CORPUSCULAR HEMOGLOBIN 31.9 pg (27.0-33.0); MEAN CORPUSCULAR HGB CONC 35.3 g/dl (32.0-36.5); MEAN CORPUSCULAR VOLUME 90.4 fl (80.0-96.0); MONO # 0.6 10^3/uL (0.0-0.8); MONO % 11.5 % (0.0-5.0); NEUTROPHILS # 3.1 10^3/uL (1.8-7.7); NEUTROPHILS % 57.2 % (36.0-66.0); PLATELET COUNT, AUTOMATED 157 10^3/uL (150-450); RED CELL DISTRIBUTION WIDTH 12.2 % (11.5-14.5); WHITE BLOOD COUNT 5.4 10^3/uL (4.0-10.0)
[2018-04-18 06:38] LABS: ANION GAP 5 MEQ/L (8-16); BLOOD UREA NITROGEN 16 MG/DL (7-18); CALCIUM LEVEL 8.8 MG/DL (8.8-10.2); CARBON DIOXIDE LEVEL 29 MEQ/L (21-32); CHLORIDE LEVEL 104 MEQ/L (98-107); CREATININE FOR GFR 0.91 MG/DL (0.70-1.30); GLOMERULAR FILTRATION RATE > 60.0 (>42); GLUCOSE, FASTING 95 MG/DL (70-100); SODIUM LEVEL 138 MEQ/L (136-145)
[2018-04-18] MEDS: MIRALAX *UNIT DOSE* 17GM PACKET PO (08:48)
[2018-04-18] MEDS: ASPIRIN 81 MG ENTERIC TAB PO (08:48)
[2018-04-18] MEDS: VITAMIN D 1,000 INTERNATIONAL UNITS TABLET PO (08:48)
[2018-04-18] MEDS: SENOKOT S TAB PO ×2 (08:48→20:39)
[2018-04-18] MEDS: QUEtiapine FUMARATE 25 MG TAB PO (08:48)
[2018-04-18] MEDS: ENOXAPARIN 40 MG/0.4 ML SYRINGE (J1650) SC (08:48)
[2018-04-18] MEDS: CARVedilol 6.25 MG TAB PO ×2 (08:52→20:39)
[2018-04-18] MEDS: SODIUM CHLORIDE 1 GM TAB PO (10:45)
[2018-04-18 15:56] LABS: KETONE, URINE AUTO RFX NEGATIVE (NEGATIVE); LEUKOCYTE ESTERASE UR AUTO RFX NEGATIVE (NEGATIVE); MUCUS, URINE RFX SMALL (NEGATIVE); NITRITE, URINE AUTO RFX NEGATIVE (NEGATIVE); RBC, URINE AUTO RFX 2 /HPF (0-3); SPECIFIC GRAVITY UR AUTO RFX 1.018 (1.002-1.035); SQUAM EPITHELIAL CELL UR AURFX 0 /HPF (0-6); WBC, URINE AUTO RFX 1 /HPF (0-3)
[2018-04-18] MEDS: QUEtiapine FUMARATE 100 MG TAB PO (20:37)
[2018-04-18] MEDS: rOPINIRole 0.25 MG TAB(REQUIP) PO (20:37)
[2018-04-19 06:46] LABS: BASO % 0.5 % (0.0-1.0); EOS # 0.1 10^3/uL (0.0-0.50); HEMATOCRIT 43.8 % (42.0-52.0); HEMOGLOBIN 15.2 g/dl (13.5-17.5); IMMATURE GRANULOCYTE % 0.7 % (0-3.0); LYMPH # 1.5 10^3/uL (1.5-4.5); LYMPH % 26.8 % (24.0-44.0); MEAN CORPUSCULAR HEMOGLOBIN 31.9 pg (27.0-33.0); MEAN CORPUSCULAR HGB CONC 34.7 g/dl (32.0-36.5); MEAN CORPUSCULAR VOLUME 91.8 fl (80.0-96.0); MONO # 0.5 10^3/uL (0.0-0.8); MONO % 9.1 % (0.0-5.0); NEUTROPHILS # 3.3 10^3/uL (1.8-7.7); NEUTROPHILS % 60.9 % (36.0-66.0); PLATELET COUNT, AUTOMATED 152 10^3/uL (150-450); RED BLOOD COUNT 4.77 10^6/uL (4.30-6.10); RED CELL DISTRIBUTION WIDTH 12.4 % (11.5-14.5); WHITE BLOOD COUNT 5.5 10^3/uL (4.0-10.0)
[2018-04-19 07:07] LABS: ANION GAP 6 MEQ/L (8-16); BLOOD UREA NITROGEN 15 MG/DL (7-18); CALCIUM LEVEL 8.9 MG/DL (8.8-10.2); CARBON DIOXIDE LEVEL 27 MEQ/L (21-32); CHLORIDE LEVEL 102 MEQ/L (98-107); CREATININE FOR GFR 0.96 MG/DL (0.70-1.30); GLOMERULAR FILTRATION RATE > 60.0 (>42); GLUCOSE, FASTING 127 MG/DL (70-100); POTASSIUM SERUM 3.9 MEQ/L (3.5-5.1); SODIUM LEVEL 135 MEQ/L (136-145)
[2018-04-19] MEDS: QUEtiapine FUMARATE 25 MG TAB PO (08:03)
[2018-04-19] MEDS: ENOXAPARIN 40 MG/0.4 ML SYRINGE (J1650) SC (08:03)
[2018-04-19] MEDS: SENOKOT S TAB PO ×2 (08:03→21:15)
[2018-04-19] MEDS: ASPIRIN 81 MG ENTERIC TAB PO (08:03)
[2018-04-19] MEDS: VITAMIN D 1,000 INTERNATIONAL UNITS TABLET PO (08:03)
[2018-04-19] MEDS: CARVedilol 6.25 MG TAB PO ×2 (08:03→21:14)
[2018-04-19] MEDS: MIRALAX *UNIT DOSE* 17GM PACKET PO (08:03)
[2018-04-19] MEDS: SODIUM CHLORIDE 1 GM TAB PO ×2 (10:17→21:12)
[2018-04-19 11:25] LABS: OSMOLALITY URINE 534 MOSM/KG (500-800)
[2018-04-19] MEDS: QUEtiapine FUMARATE 100 MG TAB PO (21:12)
[2018-04-19] MEDS: rOPINIRole 0.25 MG TAB(REQUIP) PO (21:14)
[2018-04-20 06:55] LABS: BASO % 0.6 % (0.0-1.0); EOS # 0.1 10^3/uL (0.0-0.50); EOS % 1.7 % (0.0-3.0); HEMOGLOBIN 15.8 g/dl (13.5-17.5); IMMATURE GRANULOCYTE % 0.6 % (0-3.0); LYMPH # 1.8 10^3/uL (1.5-4.5); LYMPH % 28.1 % (24.0-44.0); MEAN CORPUSCULAR HEMOGLOBIN 31.7 pg (27.0-33.0); MEAN CORPUSCULAR HGB CONC 34.3 g/dl (32.0-36.5); MEAN CORPUSCULAR VOLUME 92.2 fl (80.0-96.0); MONO # 0.6 10^3/uL (0.0-0.8); MONO % 9.8 % (0.0-5.0); NEUTROPHILS # 3.9 10^3/uL (1.8-7.7); NEUTROPHILS % 59.2 % (36.0-66.0); PLATELET COUNT, AUTOMATED 157 10^3/uL (150-450); RED BLOOD COUNT 4.99 10^6/uL (4.30-6.10); RED CELL DISTRIBUTION WIDTH 12.4 % (11.5-14.5); WHITE BLOOD COUNT 6.6 10^3/uL (4.0-10.0)
[2018-04-20 07:08] LABS: ANION GAP 3 MEQ/L (8-16); BLOOD UREA NITROGEN 17 MG/DL (7-18); CALCIUM LEVEL 9.3 MG/DL (8.8-10.2); CARBON DIOXIDE LEVEL 31 MEQ/L (21-32); CHLORIDE LEVEL 103 MEQ/L (98-107); CREATININE FOR GFR 0.98 MG/DL (0.70-1.30); GLOMERULAR FILTRATION RATE > 60.0 (>42); GLUCOSE, FASTING 95 MG/DL (70-100); POTASSIUM SERUM 4.4 MEQ/L (3.5-5.1); SODIUM LEVEL 137 MEQ/L (136-145)
[2018-04-20] MEDS: SENOKOT S TAB PO (08:54)
[2018-04-20] MEDS: SODIUM CHLORIDE 1 GM TAB PO (08:54)
[2018-04-20] MEDS: CARVedilol 6.25 MG TAB PO (08:54)
[2018-04-20] MEDS: VITAMIN D 1,000 INTERNATIONAL UNITS TABLET PO (08:54)
[2018-04-20] MEDS: MIRALAX *UNIT DOSE* 17GM PACKET PO (08:54)
[2018-04-20] MEDS: QUEtiapine FUMARATE 25 MG TAB PO (08:54)
[2018-04-20] MEDS: ASPIRIN 81 MG ENTERIC TAB PO (08:54)
[2018-04-20] MEDS: ENOXAPARIN 40 MG/0.4 ML SYRINGE (J1650) SC (08:55)
== END 2018-04-20 11:25 | disposition home or self-care (01) | DRG 95 ==
LOC: M PM&R 16:15
DX: G61.0 Guillain-Barre syndrome (principal); E87.1 Hypo-osmolality and hyponatremia; R44.2 Other hallucinations; E22.2 Syndrome of inappropriate secretion of antidiuretic hormone; G47.00 Insomnia, unspecified; I10 Essential (primary) hypertension; E55.9 Vitamin D deficiency, unspecified; R41.82 Altered mental status, unspecified; Z79.82 Long term (current) use of aspirin; Z79.899 Other long term (current) drug therapy; Z88.1 Allergy status to other antibiotic agents; R26.89 Other abnormalities of gait and mobility; E78.5 Hyperlipidemia, unspecified; Z95.2 Presence of prosthetic heart valve; G25.81 Restless legs syndrome

== ENCOUNTER → 2018-04-27 | Outpatient (REF) | payer MEDICARE | LOC: M LAB REF 16:59 | DX: N39.0 Urinary tract infection, site not specified (principal) | CPT/HCPCS: 87086 ==

== ENCOUNTER 2018-05-01 08:14 | Outpatient (RCR) | payer MEDICARE | END 2018-05-26 | LOC: M OT 08:14 → M PT 05-03 09:09 | DX: Z51.89 Encounter for other specified aftercare (principal); G61.0 Guillain-Barre syndrome; R53.1 Weakness | CPT/HCPCS: 97110 ==

== ENCOUNTER → 2018-05-03 | Outpatient (REF) | payer MEDICARE ==
[2018-05-03 20:41] LABS: APPEARANCE, URINE CLEAR (CLEAR); BACTERIA, URINE AUTO NEGATIVE (NEGATIVE); BILIRUBIN, URINE AUTO NEGATIVE (NEGATIVE); BLOOD, URINE BLOOD NEGATIVE (NEGATIVE); CALCIUM OXALATE CRYSTALS SMALL; COLOR, URINE YELLOW (YELLOW); GLUCOSE, URINE (UA) AUTO NEGATIVE (NEGATIVE); KETONE, URINE AUTO NEGATIVE (NEGATIVE); LEUKOCYTE ESTERASE, URINE AUTO NEGATIVE (NEGATIVE); MUCUS, URINE SMALL (NEGATIVE); NITRITE, URINE AUTO NEGATIVE (NEGATIVE); PROTEIN, URINE AUTO NEGATIVE (NEGATIVE); RBC, URINE AUTO 1 /HPF (0-3); SQUAMOUS EPITHELIAL CELL UR AU 0 /HPF (0-6); UROBILINOGEN, URINE AUTO 0.2 mg/dL (0.0-2.0); WBC, URINE AUTO 1 /HPF (0-3)
== END ==
LOC: M SFHCADAM 13:02
DX: R31.9 Hematuria, unspecified (principal)
CPT/HCPCS: 81001

== ENCOUNTER → 2019-03-21 | Outpatient (REF) | payer MEDICARE ==
[~2019-03-21] MED LIST changes: +AMBI5TAB PO; +ASPI81TA26 PO; -BISACODYL 10 MG SUPP PR; -BISACODYL 5 MG TAB PO; +CARV6.25 PO; -FLEET ENEMA PR; -ONDANSETRON 4 MG TAB (S0181) PO; +QUET5TAB PO; +ROPI0.5T PO; +SENN1TAB40 PO; +SODI1TAB12 PO; +VITA100067 PO
[2019-03-21 13:51] LABS: HEMATOCRIT 47.8 % (42.0-52.0); HEMOGLOBIN 15.8 g/dl (13.5-17.5); MEAN CORPUSCULAR HEMOGLOBIN 31.6 pg (27.0-33.0); MEAN CORPUSCULAR HGB CONC 33.1 g/dl (32.0-36.5); MEAN CORPUSCULAR VOLUME 95.6 fl (80.0-96.0); PLATELET COUNT, AUTOMATED 129 10^3/uL (150-450); WHITE BLOOD COUNT 6.5 10^3/uL (4.0-10.0)
[2019-03-21 14:02] LABS: ALT/SGPT 27 U/L (12-78); BLOOD UREA NITROGEN 20 MG/DL (7-18); CALCIUM LEVEL 8.6 MG/DL (8.8-10.2); CARBON DIOXIDE LEVEL 30 MEQ/L (21-32); CHLORIDE LEVEL 104 MEQ/L (98-107); CHOLESTEROL LEVEL 155 MG/DL (<200); CHOLESTEROL RISK RATIO 3.444 (<5); CREATININE FOR GFR 1.07 MG/DL (0.70-1.30); GLOMERULAR FILTRATION RATE > 60.0 (>42); GLUCOSE, FASTING 79 MG/DL (70-100); HDL CHOLESTEROL 45 MG/DL (>40); LDL CHOLESTEROL 89.6 MG/DL (<100); NON-HDL-C 110 MG/DL; POTASSIUM SERUM 4.2 MEQ/L (3.5-5.1); PROSTATIC SPECIFIC AG MONITOR 2.64 NG/ML (< 4.00); SODIUM LEVEL 139 MEQ/L (136-145); TOTAL PROTEIN 7.4 GM/DL (6.4-8.2); TRIGLYCERIDES LEVEL 102 MG/DL (<150)
== END ==
LOC: M LABDRAW1 11:45
PROVIDERS: ATTEND Family Medicine
DX: R97.20 Elevated prostate specific antigen [PSA] (principal); E78.49 Other hyperlipidemia; Z86.69 Personal history of other diseases of the nervous system and sense organs; Z98.890 Other specified postprocedural states

== ENCOUNTER → 2019-06-28 | Outpatient (CLI) | payer MEDICARE ==
[~2019-06-28] MED LIST changes: +ALB2.5NEB NEB; +AZEL1SPR3 NARES; +CARV3.12 PO; +CEFD300CAP PO; +MOXI400T11 PO; +PRED20TA PO; +VITA100016 PO
--- NOTE | 2019-06-28 11:03 | REP ---
Clinical: Acute pneumonia. Chest pain. Technique: PA and lateral. Comparison: 03/31/2018. Findings: Right lower lobe infiltrate compatible with acute pneumonia requires followup to resolution. No effusion. No pneumothorax. Mediastinum and cardiac silhouette are stable with evidence for prior cardiac valve repair. Skeletal structures intact. Impression: Right lower lobe infiltrate compatible with acute pneumonia. Electronically Signed by Dario Tracy MD 06/28/2019 10:56 A
== END ==
LOC: M SMT 10:42
PROVIDERS: ATTEND Nurse Practitioner Family
DX: R91.8 Other nonspecific abnormal finding of lung field (principal); J18.9 Pneumonia, unspecified organism
CPT/HCPCS: 36415; 71046; 80048; 85025; G0463

== ENCOUNTER → 2019-06-28 | Outpatient (REF) | payer MEDICARE ==
[~2019-06-28] MED LIST changes: -ALB2.5NEB NEB; -AZEL1SPR3 NARES; -CARV3.12 PO; -CEFD300CAP PO; -MOXI400T11 PO; -PRED20TA PO; -VITA100016 PO
[2019-06-28 12:45] LABS: BLOOD UREA NITROGEN 20 MG/DL (7-18); CALCIUM LEVEL 8.9 MG/DL (8.8-10.2); CARBON DIOXIDE LEVEL 26 MEQ/L (21-32); CHLORIDE LEVEL 100 MEQ/L (98-107); CREATININE FOR GFR 1.13 MG/DL (0.70-1.30); GLOMERULAR FILTRATION RATE > 60.0 (>42); GLUCOSE, FASTING 125 MG/DL (70-100); HEMATOCRIT 45.2 % (42.0-52.0); HEMOGLOBIN 15.2 g/dl (13.5-17.5); MEAN CORPUSCULAR HGB CONC 33.6 g/dl (32.0-36.5); MEAN CORPUSCULAR VOLUME 95.2 fl (80.0-96.0); PLATELET COUNT, AUTOMATED 160 10^3/uL (150-450); POTASSIUM SERUM 4.2 MEQ/L (3.5-5.1); RED BLOOD COUNT 4.75 10^6/uL (4.30-6.10); SODIUM LEVEL 134 MEQ/L (136-145); WHITE BLOOD COUNT 15.2 10^3/uL (4.0-10.0)
[2019-06-28 13:41] LABS: LYMPHOCYTES 9 % (16-52); MONOCYTES 11 % (0-8); NEUTROPHILS 74 % (35-75); PLATELET ESTIMATE NORMAL (NORMAL)
== END ==
LOC: M SFHCPLAZ 10:08
PROVIDERS: ATTEND Nurse Practitioner Family
DX: J18.9 Pneumonia, unspecified organism (principal)

== ENCOUNTER → 2019-07-24 | Outpatient (CLI) | payer MEDICARE ==
--- NOTE | 2019-07-24 12:12 | REP ---
PA and lateral chest: Comparison is 06/28/2019. The right lower lobe infiltrate has increased in size and density. The interstitial markings in the left lower lobe are slightly coarsened. This is an interval change. The upper lobes are clear and unchanged. Cardiac size is normal. There is a left atrial appendage clip. There is a cardiac valve replacement. These are unchanged. Impression: Worsening right lower lobe infiltrate. Developing left lower lobe infiltrate. Electronically Signed by Rodriguez Jones MD 07/24/2019 11:08 A
== END ==
LOC: M SMT 09:40
PROVIDERS: ATTEND Nurse Practitioner Family
DX: R91.8 Other nonspecific abnormal finding of lung field (principal); J18.9 Pneumonia, unspecified organism; Z95.2 Presence of prosthetic heart valve

== ENCOUNTER 2019-07-26 11:33 | Inpatient (IN) | payer MEDICARE ==
[~2019-07-26] VITALS: Ht 177.8 cm; Wt 73.3 kg
[~2019-07-26 11:33] MED LIST changes: -ALB2.5NEB NEB; -AZEL1SPR3 NARES; -CARV3.12 PO; -CEFD300CAP PO; -MOXI400T11 PO; -PRED20TA PO; +SENN-53 PO; -SENN1TAB40 PO; -VITA100016 PO
[2019-07-26] MEDS ORDERED: PRED20TA PO (11:46)
[2019-07-26] MEDS ORDERED: AZEL1SPR3 NARES (11:46)
[2019-07-26] MEDS ORDERED: cefTRIAXone SOD 2 GM in D5W MINI-BAG PLUS 50 ML IV ONE (12:00)
[2019-07-26 12:28] LABS: BASO % 0.5 % (0.0-1.0); EOS # 0.1 10^3/uL (0.0-0.50); HEMATOCRIT 44.9 % (42.0-52.0); HEMOGLOBIN 15.1 g/dl (13.5-17.5); LYMPH # 0.9 10^3/uL (1.5-4.5); LYMPH % 11.2 % (24.0-44.0); MEAN CORPUSCULAR HEMOGLOBIN 32.5 pg (27.0-33.0); MEAN CORPUSCULAR HGB CONC 33.6 g/dl (32.0-36.5); MEAN CORPUSCULAR VOLUME 96.6 fl (80.0-96.0); MONO # 0.2 10^3/uL (0.0-0.8); MONO % 2.5 % (0.0-5.0); NEUTROPHILS # 6.9 10^3/uL (1.8-7.7); NEUTROPHILS % 83.8 % (36.0-66.0); PLATELET COUNT, AUTOMATED 223 10^3/uL (150-450); RED BLOOD COUNT 4.65 10^6/uL (4.30-6.10); WHITE BLOOD COUNT 8.2 10^3/uL (4.0-10.0)
[2019-07-26 13:05] LABS: ALBUMIN 3.5 GM/DL (3.2-5.2); ALT/SGPT 26 U/L (12-78); BILIRUBIN,DIRECT 0.2 MG/DL (0.0-0.2); BILIRUBIN,TOTAL 0.6 MG/DL (0.2-1.0); BLOOD UREA NITROGEN 17 MG/DL (7-18); CALCIUM LEVEL 9.3 MG/DL (8.8-10.2); CARBON DIOXIDE LEVEL 27 MEQ/L (21-32); CHLORIDE LEVEL 105 MEQ/L (98-107); CK-MB VALUE MASS < 1.0 NG/ML (<3.6); CPK CREATINE PHOSPHOKINASE 29 U/L (39-308); CREATININE FOR GFR 1.07 MG/DL (0.70-1.30); GLOMERULAR FILTRATION RATE > 60.0 (>42); GLUCOSE, FASTING 111 MG/DL (70-100); MB/CK RELATIVE INDEX 3.45 (< OR =4); NT-PRO BNP 1097 PG/ML (<450); POTASSIUM SERUM 4.5 MEQ/L (3.5-5.1); SODIUM LEVEL 138 MEQ/L (136-145); THYROID STIMULATING HORMONE 0.524 uIU/ML (0.358-3.740); TOTAL PROTEIN 7.8 GM/DL (6.4-8.2); TROPONIN I < 0.02 NG/ML (< 0.10)
[2019-07-26] MEDS ORDERED: CARV3.12 PO (13:40)
[2019-07-26] MEDS ORDERED: VITA100016 PO (13:40)
--- NOTE | 2019-07-26 15:37 | HPEPDOC ---
[facility] Medical History & Physical Date of Admission Jul 26, 2019 Date of Service: Jul 26, 2019 History and Physical CHIEF COMPLAINT: Cough HISTORY OF PRESENT ILLNESS: Patient's a 74-year-old male with past medical history of mitral valve regurgitation status post MVR, GBS and atrial fibrillation status post ablation was sent in from primary care's office with concern for persistent pneumonia failing outpatient therapy. Patient reportedly has had symptoms for several weeks now and was treated with Levaquin as outpatient with improvement in symptoms. However, cough have persisted. Levaquin was completed 2 weeks ago on 812. He has had repeat imaging/CT that now showed b/l infiltrate/ground glass opacities with concerned for failed PNA treatment vs. possible malignancy. Patient denies any symptoms apart from the persistent cough and weight loss after symptoms started several weeks ago. He denies any history of smoking or any other complaints at this time. PAST MEDICAL HISTORY: Refer to [facility] PAST SURGICAL HISTORY: Cholecystectomy SOCIAL HISTORY: Denies tobacco or illicit drug use. Social alcohol use. FAMILY HISTORY: Mother- [place] Father- Prostate cancer ALLERGIES: Please see below. REVIEW OF SYSTEMS: 10 point review of system negative except as stated in [facility] HOME MEDICATIONS: Please see below. PHYSICAL EXAMINATION: General: No acute distress, Alert Eyes: Normal sclera, EOMI, SHEBA HENT: Atraumatic, neck supple, moist mucous membranes Cardiovascular: Normal rate Pulmonary: Clear to auscultation b/l, no wheezing GI: Soft, nontender, nondistended Skin: Warm and dry Neuro: CN grossly intact. No focal deficits. Strengths equal b/l. Psych: oriented x 3 LABORATORY DATA: See below. MICROBIOLOGY: Please see below. ASSESSMENT AND PLAN: 1. Suspected Community Acquired Pneumonia - s/p treatment with Levaquin 2 weeks prior. - Symptoms had improved apart from persistent cough with repeat imaging showing b/l infiltrates/opacities. - Uncertain if this is unresolved PNA or malignancy. - Will treat with Rocephin, obtain sputum culture. Unsure if patient needs atypical coverage, he is allergic to both doxy as well as macrolide base drugs, and already had levaquin treatment which would have treated for atypical organisms. Will monitor clinically to see if he needs adjustments. - Recommend f/u imaging after treatment in a few weeks, may need workup for malignancy if persistent although patient is at low risk without smoking history. 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 - I don't see a strong indication for continuing steroids that was started at home at this time. Will hold. 2. s/p MVR 3. hx Afib - s/p ablation. Not on anticoagulation apart from ASA. - c/w Coreg. Patient is high risk given failed outpatient therapy with possible need for malignancy workup. Endorsed to Dr. Hinds, patient's PMD from [facility]. Vital Signs Vital Signs Date Time Temp Pulse Resp B/P (MAP) Pulse Ox O2 Delivery O2 Flow Rate FiO2 07/26/19 14:15 93 19 136/68 (90) 97 Room Air 07/26/19 11:34 97.2 Laboratory Data Labs 24H Laboratory Tests 2 07/26/19 12:12: Immature Granulocyte % (Auto) 1.0, White Blood Count 8.2, Red Blood Count 4.65, Hemoglobin 15.1, Hematocrit 44.9, Mean Corpuscular Volume 96.6H, Mean Corpuscular Hemoglobin 32.5, Mean Corpuscular Hemoglobin Concent 33.6, Red Cell Distribution Width 12.6, Platelet Count 223, Neutrophils (%) (Auto) 83.8H, Lymphocytes (%) (Auto) 11.2L, Monocytes (%) (Auto) 2.5, Eosinophils (%) (Auto) 1.0, Basophils (%) (Auto) 0.5, Neutrophils # (Auto) 6.9, Lymphocytes # (Auto) 0.9L, Monocytes # (Auto) 0.2, Eosinophils # (Auto) 0.1, Basophils # (Auto) 0.0, Nucleated Red Blood Cells % (auto) 0.0, Anion Gap 6L, Glomerular Filtration Rate > 60.0, Lactic Acid Level 1.2, Calcium Level 9.3, Aspartate Amino Transf (AST/SGOT) 19, Alanine Aminotransferase (ALT/SGPT) 26, Alkaline Phosphatase 134H, Total Bilirubin 0.6, Direct Bilirubin 0.2, Total Creatine Kinase 29L, Creatine Kinase MB < 1.0, Creatine Kinase MB Relative Index 3.45, Troponin I < 0.02, LZ-Agy-U-Type Natriuretic Peptide 1097H, Total Protein 7.8, Albumin 3.5, Albumin/Globulin Ratio 0.81L, Thyroid Stimulating Hormone (TSH) 0.524 CBC/BMP Laboratory Tests 8/30/19 12:12 Red Blood Count 4.65, Mean Corpuscular Volume 96.6 H, Mean Corpuscular Hemoglobin 32.5, Mean Corpuscular Hemoglobin Concent 33.6, Red Cell Distribution Width 12.6, Neutrophils (%) (Auto) 83.8 H, Lymphocytes (%) (Auto) 11.2 L, Monocytes (%) (Auto) 2.5, Eosinophils (%) (Auto) 1.0, Basophils (%) (Auto) 0.5, Neutrophils # (Auto) 6.9, Lymphocytes # (Auto) 0.9 L, Monocytes # (Auto) 0.2, Eosinophils # (Auto) 0.1, Basophils # (Auto) 0.0 Microbiology Microbiology 07/26/19 Blood Culture, Received Pending 07/26/19 Blood Culture, Received Pending 07/26/19 Gram Stain, Received Pending 07/26/19 Sputum Culture, Received Pending Home Medications Scheduled Aspirin (Aspirin EC) 81 Mg Tab, 81 MG PO DAILY Azelastine HCl (Azelastine HCl) 0.1% [place].pump, 2 SPRAYS NARES BID Carvedilol (Carvedilol) 3.125 Mg Tablet, 3.125 MG PO BID Cholecalciferol (Vitamin D3) (Vitamin D3) 1,000 Unit Tablet, 2,000 UNIT PO DAILY Prednisone (Prednisone) 20 Mg Tablet, 20 MG PO BID STARTED 07/26/19 X 5 DAYS Allergies Coded Allergies: doxycycline (Verified Adverse Reaction, Mild, NAUSEA, 07/26/19) erythromycin base (Verified Adverse Reaction, Mild, GI UPSET, 07/26/19) A-FIB/CHADSVASC A-FIB History Current/History of A-Fib/PAF?: Yes Current PO Anticoag Therapy: No HUMERA LINK MD Jul 26, 2019 15:37
--- NOTE | 2019-07-26 19:30 | ECGEPIP ---
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
[2019-07-26 20:56] VITALS: BP 116/62
[2019-07-26] MEDS: CARVedilol 3.125 MG TAB PO SCH (22:26)
[2019-07-27 06:00] VITALS: BP 127/68
[2019-07-27 06:23] LABS: HEMATOCRIT 41.5 % (42.0-52.0); HEMOGLOBIN 13.7 g/dl (13.5-17.5); MEAN CORPUSCULAR HEMOGLOBIN 31.9 pg (27.0-33.0); MEAN CORPUSCULAR VOLUME 96.7 fl (80.0-96.0); PLATELET COUNT, AUTOMATED 183 10^3/uL (150-450); RED BLOOD COUNT 4.29 10^6/uL (4.30-6.10); WHITE BLOOD COUNT 8.8 10^3/uL (4.0-10.0)
[2019-07-27 06:38] LABS: BLOOD UREA NITROGEN 20 MG/DL (7-18); CALCIUM LEVEL 9.1 MG/DL (8.8-10.2); CARBON DIOXIDE LEVEL 28 MEQ/L (21-32); CHLORIDE LEVEL 106 MEQ/L (98-107); CREATININE FOR GFR 0.88 MG/DL (0.70-1.30); GLOMERULAR FILTRATION RATE > 60.0 (>42); GLUCOSE, FASTING 94 MG/DL (70-100); SODIUM LEVEL 140 MEQ/L (136-145)
[2019-07-27] MEDS: ASPIRIN 81 MG ENTERIC TAB PO SCH (09:02)
[2019-07-27] MEDS: VITAMIN D 1,000 INTERNATIONAL UNITS TABLET PO SCH (09:02)
[2019-07-27] MEDS: CARVedilol 3.125 MG TAB PO SCH (09:05)
[2019-07-27] MEDS: ENOXAPARIN 40 MG/0.4 ML SYRINGE (J1650) SC SCH (09:05)
[2019-07-27] MEDS: cefTRIAXone SOD 2 GM in D5W MINI-BAG PLUS 50 ML IV SCH (09:07)
[2019-07-27] MEDS: MOXIFLOXACIN 400 MG TAB PO SCH (12:52)
--- NOTE | 2019-07-27 13:25 | IPN ---
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 He made a trip to [facility] a few weeks ago. A few days after returning from the trip, he began having cough, malaise. Cough is productive of blood tinged, of brownish sputum. He was seen outpatient by Hermila Weir. After chest x-ray showed infiltrate, he was started on levofloxacin. So, the patient had a followup x-ray that showed more focal density in the right base and admitted for intravenous (IV) antibiotic therapy because of persistent symptoms. He was admitted, started on ceftriaxone. OBJECTIVE: Blood pressure 127/68, pulse 87, respiratory rate 18, and oxygen (O2) saturation 98% on room air. He has no white count elevation. It is 8800. His hemoglobin is 13.7, and he has a BUN of 20, creatinine of 0.88, with potassium 4.0, and sodium 140, calcium is 9.1. A Pro-BNP was 1097. Procalcitonin has not been done. Serologies are pending. Coxiella and Francisella serologies are pending. EXAMINATION: He is alert, pleasant, cooperative. He has an intermittent cough. Not particularly productive. There is good airflow. No flaring or use of accessory muscles. Denies pleuritic pain with breathing. Bilateral bases show rales. He has inspiratory squeaks noted bilaterally, as well, primarily in the bases, more on the right than the left. IMAGING STUDIES: CT shows extensive basilar infiltrates and ground-glass appearance is notable on the x-ray and CT, as well. ASSESSMENT: Atypical pneumonia. Cannot rule out autoimmune process, such as vasculitis. PLAN: We have requested a consultation from nutrition specialist, Dr. Banegas, and some guidance on a preliminary basis and will see the patient soon and has added request for autoimmune testing, as well as other studies. She suggests continuing coverage for atypical, particularly in light of the fact that this has an atypical pneumonia appearance, and he did show some clinical improvement historically while on levofloxacin 750. Therefore, Avelox 400 will be started to continue a coverage for atypical pneumonia until more clarity regarding etiology is established. [facility]
[2019-07-27 14:00] VITALS: BP 114/64
[2019-07-27] MEDS ORDERED: PROCHLORPERAZINE 5 MG TAB (S0183) PO PRN (21:45)
[2019-07-27 22:00] VITALS: BP 115/60
[2019-07-28] MEDS: MOXIFLOXACIN 400 MG TAB PO SCH (05:56)
[2019-07-28 06:00] VITALS: BP 138/58
[2019-07-28] MEDS ORDERED: MOXIFLOXACIN 400 MG TAB PO SCH (06:00)
[2019-07-28] MEDS: VITAMIN D 1,000 INTERNATIONAL UNITS TABLET PO SCH (09:38)
[2019-07-28] MEDS: ASPIRIN 81 MG ENTERIC TAB PO SCH (09:38)
[2019-07-28] MEDS: cefTRIAXone SOD 2 GM in D5W MINI-BAG PLUS 50 ML IV SCH (09:39)
[2019-07-28] MEDS: ENOXAPARIN 40 MG/0.4 ML SYRINGE (J1650) SC SCH (09:39)
[2019-07-28] MEDS: METOPROLOL SUCC *XL* 25MG TAB (TopROL *XL*) PO SCH (09:39)
--- NOTE | 2019-07-28 11:46 | CR ---
DATE OF CONSULTATION: 07/28/2019 CHIEF COMPLAINT: Cough. HISTORY OF PRESENT ILLNESS: The patient is a 74-year-old male with a past medical history of mitral valve regurgitation status post mitral valve replacement, atrial fibrillation status post ablation, hyperlipidemia, history of Guillain Maxwell syndrome who presented to the hospital after being sent from his primary care physician for concern of pneumonia and persistent cough. The patient reported his cough symptoms started in the end of May where he had a cough productive of reddish brown sputum as well as night sweats and possible chills and decreased appetite. He was seen as an outpatient and was started on Levaquin for pneumonia with a 10-day course. The patient reports that he did have improvement in his cough and in the sputum with the Levaquin. His nighttime cough had resolved but he does continue to have coughing mostly in the morning of white or clear sputum. He has not noticed any hemoptysis. He has not had any further night sweats. No fevers or chills. He denies any significant chest pain or shortness of breath but he does note some discomfort in his upper abdomen with heavy coughing. He also has had some hoarseness in his voice, which he attributes to the persistent and severe cough that he initially had. The patient was seen again for followup and had repeat chest x-ray done which showed worsening infiltrates in the right lower lobe and developing infiltrate in the left lower lobe. He therefore was referred for CT chest, which was also abnormal and was told after the CT chest to present to the hospital. The patient was also given prednisone, which he had just started prior to his admission which was not continued. The patient does report a history of weight loss approximately 7-10 pounds since all of the symptoms started as he had decreased appetite and oral intake. After his Levaquin, he did report improvement in his appetite however. The patient denies any prior history of lung disease. No history of asthma or COPD but he does have a previous history of pneumonia with two episodes treated in 2017. He denies any known sick contacts. However, just prior to the development of his symptoms, patient had traveled to a conference in [place] with 100s of people attending and may have had possible sick contacts exposure at that time. PAST MEDICAL HISTORY LIST: Atrial fibrillation status post ablation. Mitral valve prolapse status post repair. Hyperlipidemia. Diverticulosis. History of Guillain Maxwell in 2018 after receiving Shingrix PAST SURGICAL HISTORY: Cholecystectomy. SOCIAL HISTORY: The patient denies history of tobacco or other drug use. 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 He denies any recent farm exposure. He does have two dogs at home but denies any birds. He has had no hot tub or Jacuzzi exposure. This year the patient has traveled to [facility] as well as to [place]. He previously traveled in the past, not recently, to the [facility]. Patient denies any hobbies such as were working or stone working with significant dust exposure but he does garden and has a outdoor greenhouse. FAMILY HISTORY: Father with a history of metastatic prostate cancer. Mother with a history of myocardial infarction ([place]). Brother with history of chronic obstructive pulmonary disease (COPD) and chronic lung disease. ALLERGIES: DOXYCYCLINE and ERYTHROMYCIN. HOME MEDICATIONS: - aspirin - azelastine nasal spray - carvedilol - vitamin D3 - prednisone. PHYSICAL EXAMINATION: temperature 97.0. The patient has been afebrile. Pulse 64, respirations 16, blood pressure 138/58, O2 sat 96% on room air. GENERAL: Patient is sitting in a chair is awake, alert and oriented and is able to speak in complete sentences and does not appear to be using any accessory muscles for respiration. HEENT: Normocephalic, atraumatic. Pupils are reactive. Mucous membranes are moist. NECK: Neck is supple. No palpable adenopathy. Trachea is midline. CARDIOVASCULAR: Regular rate and rhythm. Normal S1 and S2. Unable to appreciate any murmurs. PULMONARY: There are diminished breath sounds and some crackles and inspiratory squeaks with few rhonchi bilaterally more on the right side than the left. ABDOMEN: Abdomen is soft, nontender, nondistended. No palpable hepatomegaly. LOWER EXTREMITIES: There is no lower extremity edema noted bilaterally. There are no rashes noted. No joint pains or joint swelling. LABS: WBC 8.8, hemoglobin 13.7, platelets 183. Chemistry: Sodium is 140, potassium 4.0, chloride 106, bicarb 28, BUN 20, creatinine 0.88, glucose 94, lactic acid was 1.2, AST, ALT within normal limits. BNP was 1097. IMAGING STUDIES: CT chest shows apical scarring bilaterally which is chronic. There is some mild cylindrical bronchiectasis in the upper lobes. There are ground-glass opacities with some tree-in-bud opacities more in the upper lobes with some more nodular opacities and confluent consolidation in the lower lobes bilaterally. The right lower lobe appears worse than the left lower lobe. There is also some bronchiectasis in the right middle lobe lingula as well as in the lower lobes bilaterally. There is no significant mediastinal adenopathy. There is no pleural effusion. There are some splenic calcified granulomas and surgical clips in the gallbladder fossa. Microbiology: Sputum culture is pending and blood culture shows no growth to date. ASSESSMENT/PLAN: Patient is a 74-year-old male with a past medical history of hyperlipidemia, atrial fibrillation status post right ablation, mitral valve repair who presents with a persistent cough and worsening imaging after being treated for pneumonia as an outpatient with Levaquin. The patient had initially reported night sweats, decreased appetite and productive cough of reddish-brown sputum which improved after a 10-day course of Levaquin. He continued, however, to have cough mostly in the morning. He continues to have a cough, however the morning with white or clear sputum. Has not had any further fevers or chills or night sweats. The patient's CT chest done after completion of antibiotics showed bilateral opacities with ground-glass and some more [id number] in the upper lobes and more nodular and confluent opacities in the lower lobes with the right being worse than the left. There is also evidence of bronchiectasis bilaterally. He the patient did not have any significant mediastinal adenopathy. No pleural effusions. Given the patient's symptoms, the patient most likely with an infectious etiology for his CT findings. Possibly more atypical organisms given his persistent symptoms and worsening CT although he did have improvement with Levaquin. The patient does also have some possible exposure history and other atypical organisms such as fungal organisms are in the differential Hypersensitivity pneumonitis (HP) or REVENUE STAMP CUTTER is also in the differential although his CT findings are not classic for HP. REVENUE STAMP CUTTER is definitely within the differential as the patient does not appear to be septic currently despite the extensive disease noted on imaging and the pattern is more peripheral and lower lobe opacities. - Would continue with broad-spectrum antibiotics for now with ceftriaxone and with the addition of Avelox for atypical organism coverage. - Would check for atypical pneumonia organisms such as Mycoplasma and Legionella as well as for fungal etiologies such as histoplasmosis and coccidiomycosis. - Will check Aspergillus galactomannan antibodies as well as a Fungitell. - Will check a procalcitonin to assist with antibiotics de-escalation. - Will followup the results of his sputum culture. - Vasculitis is also in the differential and will followup his antineutrophil cytoplasmic antibodies (ANCAs) although he does not have any significant renal dysfunction. - Will hold off on steroids at this time as the patient does not appear to be very symptomatic in terms of hypoxia and symptoms. If he has worsening symptoms then would consider steroids at that time. - Discussed with the patient if he does not have improvement with antibiotics and on followup imaging that he may need a bronchoscopy for further evaluation. DEEP VENOUS THROMBOSIS (DVT) prophylaxis: Lovenox. FULL CODE. MTDD
[2019-07-28 14:00] VITALS: BP 115/65
--- NOTE | 2019-07-28 19:29 | IPNPDOC ---
Subjective Date Seen The patient was seen on 07/28/19. Subjective Chief Complaint/HPI improved dyspnea Constitutional: Denies: Chills Eyes: Denies: Pain ENT: Denies: Ear Pain Skin: Denies: Rash, Lesions Pulmonary: Reports: Cough; Denies: Dyspnea Cardiovascular: Denies: Chest Pain Gastrointestinal: Denies: Nausea, Vomiting Objective Physical Examination General Exam: Positive: Alert Eye Exam: Positive: PERRLA ENT Exam: Positive: Atraumatic Neck Exam: Negative: JVD Chest Exam: Positive: Rales, Rhonchi, Diminished Heart Exam: Positive: Rate Normal Abdomen Exam: Positive: Normal bowel sounds Extremity Exam: Negative: Edema Assessment /Plan Problems (1) Pneumonia Status: Acute Problem Text: D2 ceftriaxone/moxi favor bacterial, given marked, albeit incomplete response to levo 750 10D started 06/28 when WBC was 15 c 6% bands 07/26 BCX2 NG 07/26 SCX P (mod G+ cocci cl) 07/26/19 CT chest: Multiple bilateral ground-glass densities as described, most significant in the lower lobes. This is likely an infectious etiology, however, chronic lung disease and neoplasm are also diagnostic considerations. Follow-up to complete resolution is recommended. There is a left atrial appendage clip and a cardiac valve replacement. Ddx: atypical, fungal, AI Plan/VTE VTE Prophylaxis Ordered?: Yes VS, I&O, 24H, Fishbone Vital Signs/I&O Vital Signs Date Time Temp Pulse Resp B/P (MAP) Pulse Ox O2 Delivery O2 Flow Rate FiO2 07/28/19 14:00 97.2 85 16 115/65 (82) 97 07/26/19 15:00 Room Air I&O- Last 24 Hours up to 6 AM 07/28/19 06:00 Intake Total 950 ml Balance 950 ml Laboratory Data Microbiology Microbiology 07/26/19 Blood Culture - Preliminary, Resulted No Growth after 48 hours. All Specime... 07/26/19 Blood Culture - Preliminary, Resulted No Growth after 48 hours. All Specime... 07/26/19 Gram Stain - Final, Resulted 07/26/19 Sputum Culture, Resulted Pending Lane Quiros M.D. Jul 28, 2019 19:29
[2019-07-28 22:00] VITALS: BP 115/64
[2019-07-29] MEDS: MOXIFLOXACIN 400 MG TAB PO SCH (05:21)
[2019-07-29 06:00] VITALS: BP 116/73
[2019-07-29 07:08] LABS: BASO # 0.1 10^3/uL (0.0-0.2); BASO % 0.8 % (0.0-1.0); EOS # 0.4 10^3/uL (0.0-0.5); EOS % 4.5 % (0.0-3.0); HEMATOCRIT 44.3 % (42.0-52.0); HEMOGLOBIN 14.7 g/dl (13.5-17.5); LYMPH # 2.2 10^3/uL (1.5-5.0); LYMPH % 22.8 % (24.0-44.0); MEAN CORPUSCULAR HEMOGLOBIN 31.1 pg (27.0-33.0); MEAN CORPUSCULAR HGB CONC 33.2 g/dl (32.0-36.5); MEAN CORPUSCULAR VOLUME 93.9 fl (80.0-96.0); MONO % 10.4 % (0.0-5.0); NEUTROPHILS # 5.8 10^3/uL (1.5-8.5); NEUTROPHILS % 59.5 % (36.0-66.0); PLATELET COUNT, AUTOMATED 242 10^3/uL (150-450); RED BLOOD COUNT 4.72 10^6/uL (4.30-6.10); WHITE BLOOD COUNT 9.7 10^3/uL (4.0-10.0)
[2019-07-29 07:28] LABS: ALBUMIN 3.3 GM/DL (3.2-5.2); ALT/SGPT 28 U/L (12-78); BILIRUBIN,TOTAL 0.4 MG/DL (0.2-1.0); BLOOD UREA NITROGEN 16 MG/DL (7-18); CALCIUM LEVEL 9.3 MG/DL (8.8-10.2); CARBON DIOXIDE LEVEL 28 MEQ/L (21-32); CHLORIDE LEVEL 105 MEQ/L (98-107); CREATININE FOR GFR 0.91 MG/DL (0.70-1.30); GLOMERULAR FILTRATION RATE > 60.0 (>42); GLUCOSE, FASTING 86 MG/DL (70-100); POTASSIUM SERUM 3.9 MEQ/L (3.5-5.1); SODIUM LEVEL 140 MEQ/L (136-145); TOTAL PROTEIN 7.8 GM/DL (6.4-8.2)
[2019-07-29] MEDS: cefTRIAXone SOD 2 GM in D5W MINI-BAG PLUS 50 ML IV SCH (08:47)
[2019-07-29] MEDS: ENOXAPARIN 40 MG/0.4 ML SYRINGE (J1650) SC SCH (08:47)
[2019-07-29] MEDS: VITAMIN D 1,000 INTERNATIONAL UNITS TABLET PO SCH (08:48)
[2019-07-29] MEDS: METOPROLOL SUCC *XL* 25MG TAB (TopROL *XL*) PO SCH (08:48)
[2019-07-29] MEDS: ASPIRIN 81 MG ENTERIC TAB PO SCH (08:48)
--- NOTE | 2019-07-29 11:57 | IPN ---
DATE: 07/29/2019 The patient was seen and examined this morning during bedside rounds. The patient continues to have a cough mostly in the morning, productive of white or clear sputum. He does feel his cough has improved since his admission. He denies any chest pain. No fevers or chills. No hemoptysis. Has not had any abdominal pain, nausea or vomiting. PHYSICAL EXAMINATION: Temperature 97.1, pulse 69, respirations 17, blood pressure 116/73, oxygen saturation 98% on room air. General: Patient is sitting in a chair in no acute distress, is able to speak in complete sentences and is not using any accessory muscles for respiration. HEENT: Normocephalic, atraumatic. Pupils are reactive to light bilaterally. Mucous membranes are moist. Neck is supple. Trachea is midline. No palpable cervical adenopathy. Cardiovascular: Regular rate and rhythm. Normal S1, S2. I am not able to appreciate any murmurs. Pulmonary: There are some coarse breath sounds bilaterally with inspiratory squeaks and crackles, more in the bases bilaterally. Abdomen is soft, nontender, nondistended. Positive bowel sounds. Lower extremities: There is no lower extremity edema noted bilaterally. There are no rashes. No joint pain or joint swelling. LABORATORY DATA: WBC 9.7, hemoglobin 14.7, platelets 242. Chemistry: Sodium is 140, potassium 3.9, chloride 105, bicarbonate 28, BUN 16, creatinine 0.91, glucose is 86, procalcitonin was 0.17. Microbiology: Blood cultures are no growth to date. Sputum culture: Gram stain showed gram-positive cocci and gram-negative rods. Final culture is pending. ASSESSMENT/PLAN: The patient is a 74-year-old male with a past medical history of hyperlipidemia, atrial fibrillation, status post ablation, mitral valve repair who presents with persistent cough and worsening infiltrates on CT after being treated as an outpatient for pneumonia with Levaquin. The patient had initially reported night sweats, as well as a cough productive of reddish-brown sputum, which improved after his course of Levaquin. His sputum is white or clear and he has not had any further fevers, chills or night sweats. The patient's CT chest, which was done after completing the course of antibiotics, showed worsening infiltrates; however with bilateral opacities was ground-glass and some tree and bud in the upper lobes with more nodular and confluent opacities in the lower lobes with the right being worse in the left. He also has evidence of bronchiectasis bilaterally with no significant mediastinal adenopathy or pleural effusions. Infectious etiology is possible given his imaging and his improvement with broad-spectrum antibiotics, as well as his initial symptoms. However, while he most likely has bacterial pneumonia initially, the newer findings on CT may be secondary to more of an atypical infectious process or inflammatory process, especially given a procalcitonin, which was only 0.17. If the patient were to have an acute bacterial respiratory infection, would expect his procalcitonin to be more significantly elevated. The patient also does not appear toxic with no fevers or leukocytosis. He also is not hypoxic despite the extensive disease noted on imaging. The patient does have some possible exposure history and fungal organisms are in the differential, as well as cryptogenic organizing pneumonia, especially given the CT pattern and his symptoms. Hypersensitivity pneumonitis is also the differential, although the CT findings are not as classic for HP as it is for [employer]. Would continue broad-spectrum antibiotics for now with ceftriaxone and Avelox. For potential coccidiomycosis, the patient may benefit from macrolide antibiotics; however, he reports an allergy to erythromycin and doxycycline. Will followup results for atypical organisms such as Mycoplasma and Legionella, as well as for fungal etiologies such as histoplasmosis and coccidiomycoses Will follow up the results of A. Galactomannan and fungitell Follow up the results of his sputum cultures and if negative we will consider discontinuing the ceftriaxone and continuing with just Avelox. Will follow up the results of ANCA panel as vasculitis interstitial lung disease is in the differential, although patient does not have any significant renal dysfunction or other systemic symptoms. Can continue to hold off on steroids at this time as the patient does not appear to have worsening disease or hypoxemia. If he has worsening symptoms or hypoxia, would consider starting steroids at that time. Will start albuterol nebulizers as the patient does have some inspiratory squeaks on examination to see if there is improvement in some of his symptoms. The patient will need repeat imaging to follow up improvement and if the patient does not have improvement, may need bronchoscopy for further evaluation at that time. Deep vein thrombosis (DVT) prophylaxis with Lovenox. FULL CODE. MTDD
--- NOTE | 2019-07-29 13:07 | IPNPDOC ---
Subjective Date Seen The patient was seen on 07/29/19. Subjective Chief Complaint/HPI pneumonia Events since last encounter Continues with cough. no hypoxia. + mild GONZALEZ. Constitutional: Denies: Chills, Fever, Night Sweats Skin: Denies: Rash, Lesions, Breakdown Pulmonary: Reports: Cough; Denies: Dyspnea Cardiovascular: Denies: Chest Pain, Palpitations, Orthopnea, Paroxysmal Noc. Dyspnea, Lt Headedness Gastrointestinal: Denies: Nausea, Vomiting, Abdominal Pain, Diarrhea, Constipation Genitourinary: Denies: Dysuria, Frequency, Incontinence, Retention Psych: Reports: Mood Normal; Denies: Depression, Memory Issues Objective Physical Examination General Exam: Positive: Alert Eye Exam: Positive: PERRLA ENT Exam: Positive: Atraumatic Neck Exam: Negative: JVD Chest Exam: Positive: Rhonchi, Wheezing, Diminished Heart Exam: Positive: Rate Normal Abdomen Exam: Positive: Normal bowel sounds Extremity Exam: Negative: Edema Assessment /Plan Problems (1) Pneumonia Status: Acute Problem Text: D3 ceftriaxone/moxi favor bacterial, given marked, albeit incomplete response to levo 750 10D started 06/28 when WBC was 15 c 6% bands 07/28 CRP/ESR 2.5/48 07/26 BCX2 NG 07/26 SCX P (mod G+ cocci cl/ch, mod G- rods) 07/26/19 CT chest: Multiple bilateral ground-glass densities as described, most significant in the lower lobes. This is likely an infectious etiology, however, chronic lung disease and neoplasm are also diagnostic considerations. Follow-up to complete resolution is recommended. There is a left atrial appendage clip and a cardiac valve replacement. Ddx: atypical, fungal, AI Plan/VTE VTE Prophylaxis Ordered?: Yes VS, I&O, 24H, Fishbone Vital Signs/I&O Vital Signs Date Time Temp Pulse Resp B/P (MAP) Pulse Ox O2 Delivery O2 Flow Rate FiO2 07/29/19 08:48 69 116/73 07/29/19 06:00 97.1 17 98 07/26/19 15:00 Room Air I&O- Last 24 Hours up to 6 AM 07/29/19 06:00 Intake Total 2220 ml Balance 2220 ml Laboratory Data 24H LABS Laboratory Tests 2 07/28/19 20:12: Erythrocyte Sedimentation Rate 48H, C-Reactive Protein, Quantitative 2.45H 07/29/19 06:02: Immature Granulocyte % (Auto) 2.0, White Blood Count 9.7, Red Blood Count 4.72, Hemoglobin 14.7, Hematocrit 44.3, Mean Corpuscular Volume 93.9, Mean Corpuscular Hemoglobin 31.1, Mean Corpuscular Hemoglobin Concent 33.2, Red Cell Distribution Width 12.7, Platelet Count 242, Neutrophils (%) (Auto) 59.5, Lymphocytes (%) (Auto) 22.8L, Monocytes (%) (Auto) 10.4H, Eosinophils (%) (Auto) 4.5H, Basophils (%) (Auto) 0.8, Neutrophils # (Auto) 5.8, Lymphocytes # (Auto) 2.2, Monocytes # (Auto) 1.0H, Eosinophils # (Auto) 0.4, Basophils # (Auto) 0.1, Nucleated Red Blo od Cells % (auto) 0.0, Anion Gap 7L, Glomerular Filtration Rate > 60.0, Blood Urea Nitrogen 16, Creatinine 0.91, Sodium Level 140, Potassium Level 3.9, Chloride Level 105, Carbon Dioxide Level 28, Calcium Level 9.3, Aspartate Amino Transf (AST/SGOT) 19, Alanine Aminotransferase (ALT/SGPT) 28, Alkaline Phosphatase 121H, Total Bilirubin 0.4, Total Protein 7.8, Albumin 3.3, Albumin/Globulin Ratio 0.73L CBC/BMP Laboratory Tests 07/29/19 06:02 Red Blood Count 4.72, Mean Corpuscular Volume 93.9, Mean Corpuscular Hemoglobin 31.1, Mean Corpuscular Hemoglobin Concent 33.2, Red Cell Distribution Width 12.7, Neutrophils (%) (Auto) 59.5, Lymphocytes (%) (Auto) 22.8 L, Monocytes (%) (Auto) 10.4 H, Eosinophils (%) (Auto) 4.5 H, Basophils (%) (Auto) 0.8, Neutrophils # (Auto) 5.8, Lymphocytes # (Auto) 2.2, Monocytes # (Auto) 1.0 H, Eosinophils # (Auto) 0.4, Basophils # (Auto) 0.1, Calcium Level 9.3, Aspartate Amino Transf (AST/SGOT) 19, Alanine Aminotransferase (ALT/SGPT) 28, Alkaline Phosphatase 121 H, Total Bilirubin 0.4, Total Protein 7.8, Albumin 3.3 Microbiology Microbiology 07/26/19 Blood Culture - Preliminary, Resulted No Growth after 72 hours. All specime... 07/26/19 Blood Culture - Preliminary, Resulted No Growth after 72 hours. All specime... 07/26/19 Gram Stain - Final, Resulted 07/26/19 Sputum Culture, Resulted Pending Lianna Gonzalez Jul 29, 2019 13:07 [address] Quiros M.D. Jul 29, 2019 18:28
[2019-07-29 14:00] VITALS: BP 113/65
[2019-07-29] MEDS: ALBUTEROL SULFATE 2.5 MG/0.5 ML INH NEB SOLN NEB SCH ×2 (14:03→19:48)
[2019-07-29] MEDS ORDERED: ALBUTEROL 90 MCG/ACT 8GM HFA INHALER INH PRN (18:30)
[2019-07-29] MEDS: guaiFENesin ER 600 MG TAB PO SCH (20:22)
[2019-07-29 22:00] VITALS: BP 113/66
[2019-07-30] MEDS: ALBUTEROL SULFATE 2.5 MG/0.5 ML INH NEB SOLN NEB SCH ×2 (01:21→07:29)
[2019-07-30 06:00] VITALS: BP 112/63
[2019-07-30] MEDS: MOXIFLOXACIN 400 MG TAB PO SCH (06:12)
[2019-07-30 06:31] LABS: C REACTIVE PROTEIN QUANTITATIV 1.44 MG/DL (0.00-0.30)
[2019-07-30 06:45] LABS: ERYTHROCYTE SEDIMENTATION RATE 40 mm/hr (0-20)
[2019-07-30] MEDS: cefTRIAXone SOD 2 GM in D5W MINI-BAG PLUS 50 ML IV SCH (08:06)
[2019-07-30 08:07] VITALS: BP 105/61
[2019-07-30] MEDS: ASPIRIN 81 MG ENTERIC TAB PO SCH (08:07)
[2019-07-30] MEDS: VITAMIN D 1,000 INTERNATIONAL UNITS TABLET PO SCH (08:07)
[2019-07-30] MEDS: METOPROLOL SUCC *XL* 25MG TAB (TopROL *XL*) PO SCH (08:07)
[2019-07-30] MEDS: guaiFENesin ER 600 MG TAB PO SCH (08:07)
[2019-07-30] MEDS: ENOXAPARIN 40 MG/0.4 ML SYRINGE (J1650) SC SCH (08:07)
[2019-07-30 09:35] LABS: BLOOD UREA NITROGEN 16 MG/DL (7-18); CARBON DIOXIDE LEVEL 27 MEQ/L (21-32); CHLORIDE LEVEL 105 MEQ/L (98-107); CREATININE FOR GFR 0.87 MG/DL (0.70-1.30); GLOMERULAR FILTRATION RATE > 60.0 (>42); GLUCOSE, FASTING 88 MG/DL (70-100); SODIUM LEVEL 138 MEQ/L (136-145)
[2019-07-30] MEDS ORDERED: ALB2.5NEB NEB (10:17)
[2019-07-30] MEDS ORDERED: MOXI400T11 PO (10:17)
[2019-07-30] MEDS ORDERED: CEFD300CAP PO (10:17)
[2019-07-30 10:40] LABS: IMMUNOGLOBULIN G 1230 MG/DL (681-1648)
[2019-07-30 11:45] LABS: BASO # 0.1 10^3/uL (0.0-0.2); EOS # 0.4 10^3/uL (0.0-0.5); HEMATOCRIT 41.1 % (42.0-52.0); HEMOGLOBIN 13.8 g/dl (13.5-17.5); LYMPH # 2.1 10^3/uL (1.5-5.0); LYMPH % 23.1 % (24.0-44.0); MEAN CORPUSCULAR HEMOGLOBIN 32.2 pg (27.0-33.0); MEAN CORPUSCULAR HGB CONC 33.6 g/dl (32.0-36.5); MEAN CORPUSCULAR VOLUME 95.8 fl (80.0-96.0); MONO # 0.9 10^3/uL (0.0-0.8); MONO % 10.2 % (0.0-5.0); NEUTROPHILS # 5.4 10^3/uL (1.5-8.5); NEUTROPHILS % 60.3 % (36.0-66.0); PLATELET COUNT, AUTOMATED 184 10^3/uL (150-450); RED BLOOD COUNT 4.29 10^6/uL (4.30-6.10)
--- NOTE | 2019-07-30 12:05 | IPN ---
DATE: 07/30/2019 The patient was seen and examined this morning during bedside rounds. He reports his cough has continued to improve. He did receive albuterol nebulizer treatments and had noticed improvement in his shortness of breath and with his cough, which lasted about 2-1/2 after receiving treatment. He denies any fevers or chills. No hemoptysis. Has not had any abdominal pain, nausea or vomiting. PHYSICAL EXAM: Temperature 97.9, pulse 94, respirations 16, blood pressure 112/63, oxygen saturation 96% on room air. General: Patient is sitting in a chair, in no acute distress, able to speak in complete sentences and is not using any accessory muscles for respiration. HEENT: Normocephalic, atraumatic. Pupils reactive to light bilaterally. Mucous membranes are moist. Neck is supple. Trachea is midline and there is no palpable cervical adenopathy. Cardiovascular: Regular rate and rhythm. Normal S1, S2. Unable to appreciate any murmurs. Pulmonary: There are crackles bilaterally more in the bases and some rare inspiratory squeaks which is improved from previous. Abdomen: Soft, nontender, nondistended. Lower extremities: There is no lower extremity edema noted bilaterally. No joint pain or joint swelling. LABS: Pending for today. MICROBIOLOGY: Sputum culture final results were few Pantoea agglomerans organisms with no sensitivity reported. ASSESSMENT AND PLAN: The patient is a 74-year-old male with a past medical history of hyperlipidemia, atrial fibrillation, status post ablation, mitral valve repair who presents with persistent cough and worsening infiltrates on CT after being treated for pneumonia as an outpatient with a course of Levaquin. The patient initially had night sweats and a cough productive of reddish brown sputum, which improved after receiving a 10 day course of Levaquin. He has not had any further fevers, chills or night sweats since then, but he has persistent cough productive of white or clear mucus. The CT chest done after the course of antibiotics showed worsening infiltrates bilaterally with ground-glass and some tree-in-bud more in the upper lobes and more nodular and confluent opacities in the lower lobes with the right lower lobe being worse than the left. He was also noted to have evidence of bronchiectasis bilaterally with no significant mediastinal adenopathy or pleural effusions. The patient did not have any leukocytosis on admission and his procalcitonin was only 0.17, which does not suggest a bacterial lower respiratory tract infection. The patient may still have more atypical infectious process or an inflammatory process and so he was started on broad-spectrum antibiotics as well as with Avelox for atypical coverage. Given the CT pattern, cryptogenic organizing pneumonia was possible. However, as he did not appear to be very symptomatic and was improving with antibiotics and did not have any significant hypoxia, steroids were on hold. - The patient's sputum culture was positive now for Pantoea agglomerans, which is a rare typically opportunistic infection, which is more commonly seen in urine and blood stream infections in patients with underlying immunocompromised state and is less commonly seen for pneumonia. 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 Suspect that the patient may have had more of a typical bacterial pneumonia, which may have caused some immunocompromised state, and therefore, the current Pantoea is more of an opportunistic type of infectious process. In previous case reports this bacteria when in sputum is usually a commensal organism and associated with other more typical infectious bacteria such as Pseudomonas. - Would continue with antibiotics. Can change ceftriaxone to an oral cephalosporin and continue with Avelox to complete another 1 week course. - Will continue to trend procalcitonin, ESR and CRP as an outpatient to continue to monitor for response. - Would followup the serology for atypical organisms, which are still pending such as Mycoplasma, Legionella, histoplasmosis, and coccidiomycosis. The results of his galactomannan and fungitell are also still pending. - Vasculitis is possible, however less likely given he does not have any significant renal dysfunction or other systemic symptoms. will follow-up results of ANCA panel. - Will followup results of the immunoglobulin testing and HIV testing for immunodeficiency evaluation. - Cryptogenic organizing pneumonia is still possible and usually macrolide antibiotics can benefit with more mild cases but these can also improve on their own without treatment. As he appears to be symptomatically improving, would hold off on steroids at this time. - Patient will need repeat imaging in 2-3 weeks after discharge to followup for resolution. If he has persistent airspace disease, he may require bronchoscopy at that time for further evaluation. - Will continue with albuterol nebulizers as an outpatient as needed. Deep venous thrombosis (DVT) prophylaxis with Lovenox. FULL CODE. Please do not hesitate to call if any further questions or concerns. MTDD
[2019-07-31 14:18] LABS: HIV 1&2 SCREEN CENTAUR NEGATIVE (NEGATIVE)
[2019-08-01 00:07] LABS: ANA (HEP2) Negative (.); CYCLIC CITRULLINATED PEPTIDE 5 units (0-19)
--- NOTE | 2019-08-01 13:14 | DSES ---
DATE OF ADMISSION: 07/26/2019 DATE OF DISCHARGE: 07/30/2019 ATTENDING PHYSICIAN: Lane Quiros MD PRIMARY CARE PHYSICIAN: Mane Hinds MD BRAKE SPECIALIST: Charlene Banegas MD HISTORY OF PRESENT ILLNESS: This is a 74-year-old gentleman, who presented to primary care physician's office with concern for persistent pneumonia, failing outpatient therapy. The patient's symptoms have been present for several weeks. The patient had been treated with Levaquin with mild improvement in his symptoms. However, his cough persisted. CT imaging of the chest showed bilateral infiltrate with ground glass opacities, concern for multilobar pneumonia. The patient was admitted to the [facility]. HOSPITAL COURSE: The patient was placed ceftriaxone and moxifloxacin. He tolerated both well. Sputum culture was obtained and showed Pantoea agglomerans with a few quantity. Susceptibility standards are not available for this organism. The patient is status post pulmonology consult with Dr. Charlene Banegas on 07/28/2019. Dr. Bangeas ordered immunology work up secondary to the patient's clinic presentation, as well as concern for opportunistic infection with the Pantoea species in the patient's sputum. The patient has not required supplemental oxygen. He has remained afebrile throughout his hospitalization. He was placed on albuterol nebulizer with improvement of his symptoms. PHYSICAL EXAMINATION: On physical examination today, vital signs are stable. He is afebrile. Oxygen saturation 96% on room air. Neck is supple without lymphadenopathy. Cardiovascular: Heart rate and rhythm are regular. Pulmonary: Lungs with occasional wheezes. Abdomen soft and nontender. Bilateral lower extremities without any edema. LABORATORY: Labs today showed no electrolyte abnormalities. The patient C-reactive protein has continued to trend downward. He did have a procalcitonin level completed, which was within normal range. The patient had a significant amount of immunology and serology lab orders, which are still pending. ASSESSMENT: 1. Multilobar pneumonia with Pantoea species. 2. Atrial fibrillation. 3. Mitral valve repair. PLAN: The patient will be discharged to home. Diet as tolerated. Activity as tolerated. MEDICATIONS ARE FOLLOWS: - albuterol sulfate via nebulizer every 2 hours as needed for shortness of breath or cough - cefdinir 300 mg one by mouth twice a day - moxifloxacin 400 mg by mouth daily - aspirin enteric coated 81 mg daily - azelastine nasal spray two sprays to each nostril twice a day - carvedilol 3.125 mg by mouth twice a day - vitamin D3 1000 international units, tablets 2 by mouth daily - prednisone 20 mg by mouth twice a day The patient is discharged in stable and satisfactory condition with no further questions at the time of discharge.
[2019-08-05 10:11] LABS: ANCA-ATYPICAL <1:20 titer (Neg:<1:20); ASPERGILLUS FUMIGATUS AB Negative (Negative); AUREOBASIDIUM PULLULANS Negative (Negative); CYTOPLASMIC NEUTROP AB ANCA-C <1:20 titer (Neg:<1:20); FUNGITELL, SERUM <31 pg/mL (<80); MICROPOLYSPORA FAENI AB Negative (Negative); MYCOPLASMA PNEUMONIAE IgG 190 U/mL (0-99); MYCOPLASMA PNEUMONIAE IgM <770 U/mL (0-769); PERINUCLEAR AB ANCA-P <1:20 titer (Neg:<1:20); PIGEON SERUM AB Negative (Negative); THERMOACTINOMYCES SACCHARI Negative (Negative); THERMOACTINOMYCES VULGARIS Negative (Negative)
[2019-08-07 10:07] LABS: ASPERGILLUS FLAVUS ABY Negative (Neg:<1:1); ASPERGILLUS FUMIGATUS ABY Negative (Neg:<1:1); ASPERGILLUS GALACTOMANNAN AG 0.03 Index (0.00-0.49); ASPERGILLUS NIGER ABY Negative (Neg:<1:1)
[2019-08-12 12:46] LABS: COX BURN IgG AB 1 <1:16 TITER (<1:16); COX BURN IgG AB 2 <1:16 TITER (<1:16); COX BURN IgM AB 2 <1:16 TITER (<1:16); COX BURN IgM ABY 1 <1:16 TITER (<1:16)
== END 2019-07-30 13:19 | disposition home or self-care (01) | DRG 179 ==
LOC: M ED 11:33 → M ED INP 15:25 → M MSPAV 20:56
PROVIDERS: ADMIT Student in an Organized Health Care Education/Training Program; ATTEND Family Medicine
DX: J15.6 Pneumonia due to other Gram-negative bacteria (principal); Z95.2 Presence of prosthetic heart valve; I48.91 Unspecified atrial fibrillation; Z79.899 Other long term (current) drug therapy; E78.5 Hyperlipidemia, unspecified; K57.30 Diverticulosis of large intestine without perforation or abscess without bleeding; Z79.82 Long term (current) use of aspirin

== ENCOUNTER → 2019-07-26 | Outpatient (CLI) | payer MEDICARE ==
[~2019-07-26] MED LIST changes: +ALB2.5NEB NEB; +AZEL1SPR3 NARES; +CARV3.12 PO; +CEFD300CAP PO; +MOXI400T11 PO; +PRED20TA PO; +VITA100016 PO
--- NOTE | 2019-07-26 10:38 | REP ---
CT of the chest without IV contrast: Comparison is the PA and lateral plain film study dated 07/24/2019. There are confluent ground-glass densities in the right lower lobe and left lower lobe compatible with bilateral lower lobe infiltrates. There are also scattered ground-glass densities in the upper lobes and in the right middle lobe compatible with subsegmental infiltrates. These are changes from a prior chest CT dated 10/09/2017. There are no pleural effusions. There is no mediastinal or axillary lymph node enlargement. In the absence of IV contrast the study is insensitive for hilar lymphadenopathy. The thoracic aorta is unremarkable. Cardiac size is upper normal. The upper abdomen the visualized areas of the liver, pancreas and spleen are unremarkable except for splenic calcified granulomas. There are surgical clips in the gallbladder fossa. There is no adrenal mass. Impression: Multiple bilateral ground-glass densities as described, most significant in the lower lobes. This is likely an infectious etiology, however, chronic lung disease and neoplasm are also diagnostic considerations. Follow-up to complete resolution is recommended. There is a left atrial appendage clip and a cardiac valve replacement. Electronically Signed by Rodriguez Jones MD 07/26/2019 10:31 A
== END ==
LOC: M RAD 09:52
PROVIDERS: ATTEND Nurse Practitioner Family
DX: J18.1 Lobar pneumonia, unspecified organism (principal)

== ENCOUNTER → 2019-08-13 | Outpatient (REF) | payer MEDICARE ==
[~2019-08-13] MED LIST changes: +ALB2.5NEB NEB; +AZEL1SPR3 NARES; +CARV3.12 PO; +CEFD300CAP PO; +MOXI400T11 PO; +PRED20TA PO; -SENN-53 PO; +SENN1TAB40 PO; +VITA100016 PO
[2019-08-14 10:48] LABS: HIV 1&2 SCREEN CENTAUR NEGATIVE (NEGATIVE)
== END ==
LOC: M SFHCADAM 11:18
PROVIDERS: ATTEND Physician Assistant
DX: R91.8 Other nonspecific abnormal finding of lung field (principal)

== ENCOUNTER → 2019-08-23 | Outpatient (CLI) | payer MEDICARE ==
--- NOTE | 2019-08-23 11:32 | REP ---
CT CHEST WITHOUT CONTRAST: HISTORY: Other nonspecific abnormal lung field finding. Comparison CT study July 26, 2019 and October 09, 2017. CT FINDINGS: There is no evidence of pleural or pericardial effusion. The patient is status post mitral valve replacement and left atrial appendage clamp placement. There is some vascular calcification in the distribution of the left coronary artery as before. There are scattered mediastinal lymph nodes noted. The largest of these are 13 mm precarinal node and a subcarinal lymph node, which measures 15 mm in short axis dimension. Previously, these measurements were 10 and 8 mm respectively on the 2017 study. These nodes appear unchanged from the recent study of July 26, 2019. There is mild diffuse bronchiectasis. This is unchanged. There are extensive infiltrates persisting particularly in the right lower lobe and to some degree in the right middle lobe and left lower lobe. The left lower lobe opacification has improved from the recent prior study of July 26, 2019. It is not resolved however. There is improvement in the medial basal segment of the right lower lobe but consolidation in the posterolateral right lower lobe persists essentially unchanged. There are multiple air bronchograms in the areas of consolidation bilaterally as before. There are scattered peribronchovascular and peripheral nodular areas of ground-glass opacity similar to the prior study and generally less pronounced. IMPRESSION: There are areas of mild improvement in the previously noted infiltrates. Significant persistent consolidation remains however most notably in the right lower lobe distribution. There is bronchiectasis and there are multiple air bronchograms. Scattered bilateral peribronchovascular changes are seen. There are at least two hypertrophied mediastinal lymph nodes. Fungal versus other granulomatous lung disease suspected. Electronically Signed by Monty Hough MD 08/23/2019 01:21 P
== END ==
LOC: M RAD 09:45
PROVIDERS: ATTEND Internal Medicine Pulmonary Disease
DX: R91.8 Other nonspecific abnormal finding of lung field (principal)

== ENCOUNTER 2019-09-03 08:53 | Day surgery (SDC) | payer MEDICARE ==
[~2019-09-03] VITALS: Ht 177.8 cm; Wt 74.4 kg
[~2019-09-03 08:53] MED LIST changes: +LIDOCAINE 2% INJ 100 MG/5 ML SDV (FOR ANES.) As Ordered ONE; +LR 1,000 ML IV ONE; +ONDANSETRON 4MG/2ML VIAL (J2405) As Ordered ONE; +PROPOFOL 200 MG/20 ML VIAL As Ordered ONE; +ROCURONIUM BROMIDE 50 MG/5 ML VIAL As Ordered ONE; +dexameTHASONE 4 MG/ML 1ML VIAL (J1100) As Ordered ONE
[2019-09-03] MEDS ORDERED: fentaNYL 100 MCG/2 ML INJECTION (J3010) As Ordered ONE (11:25)
[2019-09-03] MEDS ORDERED: CETACAINE SPRAY 5GM As Ordered ONE (11:45)
[2019-09-03] MEDS ORDERED: SUGAMMADEX SODIUM 500 MG/5 ML VIAL (BRIDION) As Ordered ONE (12:13)
--- NOTE | 2019-09-03 13:20 | ROOR ---
Patient Name: Israel Ac Procedure Date: 09/03/2019 11:28 AM Date of : 1945 Admit Type: Outpatient Age: 74 Room: Main OR Note Status: Finalized Attending MD: Charlene Banegas MD Procedure: Bronchoscopy Indications: Bilateral infiltrate, Mediastinal adenopathy Providers: Charlene Banegas MD (Doctor) Referring MD: 1. No Referring Physician 1. No Referring Physician, Admin. (Referring MD) Requesting Physician: Medicines: General Anesthesia, Cetacaine topical Complications: No immediate complications. Estimated blood loss: Minimal Procedure: Pre-Anesthesia Assessment: - Prior to the procedure, a History and Physical was performed, and patient medications and allergies were reviewed. The patient's tolerance of previous anesthesia was also reviewed. The risks and benefits of the procedure and the sedation options and risks were discussed with the patient. All questions were answered, and informed consent was obtained. Prior Anticoagulants: The patient has taken aspirin, last dose was 5 days prior to procedure. ASA Grade Assessment: II - A patient with mild systemic disease. After reviewing the risks and benefits, the patient was deemed in satisfactory condition to undergo the procedure. The Bronchoscope was introduced through the mouth, via the endotracheal tube (the patient was intubated for the procedure) and advanced to the tracheobronchial tree of both lungs. The procedure was accomplished without difficulty. The patient tolerated the procedure well. Findings: Bilateral Lung Abnormalities: Notable, mucoid, white, thick secretions were found throughout the tracheobronchial tree. Transbronchial biopsies of an area of infiltration were performed in the lateral basal segment of the right lower lobe and in the posterior basal segment of the right lower lobe using forceps and sent for histopathology examination. The procedure was guided by fluoroscopy. Transbronchial biopsy technique was selected because the sampling site was not visible endoscopically. Bronchoalveolar lavage was performed in the RLL lateral basal segment (B9) and in the RLL posterior basal segment (B10) of the lung and sent for cell count, bacterial culture, viral smears & culture, and fungal & AFB analysis and cytology. The return was blood-tinged. Transbronchial biopsies of an area of infiltration were performed in the lateral segment of the right middle lobe using forceps and sent for histopathology examination. The procedure was guided by fluoroscopy. Transbronchial biopsy technique was selected because the sampling site was not visible endoscopically. Bronchoalveolar lavage was performed in the RML lateral segment (B4) of the lung and sent for cell count, bacterial culture, viral smears & culture, and fungal & AFB analysis and cytology. The return was blood-tinged. Bronchoalveolar lavage was performed in the LLL lateral basal segments (B9) and in the LLL posterior basal segment (B10) of the lung and sent for cell count, bacterial culture, viral smears & culture, and fungal & AFB analysis and cytology. The return was cloudy and mucoid. Mucous plugs were present in the return fluid. An endobronchial ultrasound endoscope was utilized in order to assist with fine needle aspiration in the subcarinal area. Endobronchial ultrasound evaluation was done of right paratracheal lymph node, right hilar and left hilar lymph nodes and they were noted to be small and not sampled. The subcarinal lymph node was enlarged and was sampled with a needle. Transbronchial needle aspirations of a lymph node were performed in the subcarinal area using an Olympus EBUS-TBNA 21 gauge needle and sent for routine cytology. The procedure was guided by ultrasound. Transbronchial needle aspiration technique was selected because the sampling site was not visible endoscopically. Impression: - Bilateral infiltrate - Mediastinal adenopathy - Notable, mucoid, white, thick secretions were found throughout the tracheobronchial tree. - Transbronchial lung biopsies were performed. - Bronchoalveolar lavage was performed. - Transbronchial lung biopsies were performed. - Bronchoalveolar lavage was performed. - Bronchoalveolar lavage was performed. - Endobronchial ultrasound was performed. - A transbronchial needle aspiration was performed. Recommendation: - Await test results. Attending Participation: I personally performed the entire procedure. Charlene Banegas MD 09/03/2019 1:20:13 PM Number of Addenda: 0 Note Initiated On: 09/03/2019 11:28 AM
--- NOTE | 2019-09-03 13:23 | REP ---
Portable chest, 12:58 p.m., single AP view with the patient upright: Comparisons are the PA and lateral plain film study of 07/24/[address] of 08/23/2019. There is a persisting density inferiorly in the right lung. This is better demonstrated on the chest CT of 08/23/2019, therefore, I would recommend follow-up chest CT for further evaluation. The density in the left lung has resolved. Cardiac size is normal. Cardiac valve replacement and left atrial appendage clip are again noted, unchanged. Impression: Persisting density inferiorly in the right lung. Recommend follow-up CT for further evaluation. Electronically Signed by Rodriguez Jones MD 09/03/2019 01:15 P
[2019-09-03 13:34] VITALS: BP 123/58
[2019-09-03] MEDS ORDERED: NORCO, ANEXSIA 5/325MG TABLET (HYDROcodone/ACETAMINOPHEN) PO PRN (14:00)
[2019-09-03] MEDS ORDERED: ONDANSETRON 4MG/2ML VIAL (J2405) IV PRN (14:00)
[2019-09-03] MEDS ORDERED: LR 1,000 ML IV SCH (14:00)
[2019-09-03] MEDS ORDERED: fentaNYL 100 MCG/2 ML INJECTION (J3010) IV PRN (14:00)
[2019-09-03 14:39] LABS: APPEARANCE CLOUDY (CLEAR); COLOR COLORLESS (COLORLESS); SOURCE LEFT LOWER LOBE
[2019-09-03 15:00] LABS: APPEARANCE CLOUDY (CLEAR); COLOR PINK (COLORLESS); SOURCE RIGHT MIDDLE LOBE
[2019-09-03 15:10] LABS: APPEARANCE TURBID (CLEAR); COLOR RED (COLORLESS); SOURCE RIGHT LOWER LOBE
[2019-09-03 16:23] LABS: MONOCYTES/MACROPHAGES, BAL 9 %
[2019-09-03 16:26] LABS: MONOCYTES/MACROPHAGES, BAL 2 %
[2019-09-03 16:33] LABS: MONOCYTES/MACROPHAGES, BAL 4 %
== END 2019-09-03 13:58 | disposition home or self-care (01) ==
LOC: M SDC 08:53
PROVIDERS: ATTEND Internal Medicine Pulmonary Disease
DX: R91.8 Other nonspecific abnormal finding of lung field (principal); E78.49 Other hyperlipidemia; K57.90 Diverticulosis of intestine, part unspecified, without perforation or abscess without bleeding; Z79.82 Long term (current) use of aspirin; Z79.899 Other long term (current) drug therapy; N40.0 Benign prostatic hyperplasia without lower urinary tract symptoms; Z79.51 Long term (current) use of inhaled steroids
CPT/HCPCS: 31624; 31628; 31629; 31652; 71045; 76000; 87070; 87102; 87116; 87205; 87206; 88108; 88173; 88305; 88312; 88313; 89051; J1100; J2405; J3010

== ENCOUNTER → 2019-11-12 | Outpatient (CLI) | payer MEDICARE ==
[~2019-11-12] MED LIST changes: -LIDOCAINE 2% INJ 100 MG/5 ML SDV (FOR ANES.) As Ordered ONE; -LR 1,000 ML IV ONE; -ONDANSETRON 4MG/2ML VIAL (J2405) As Ordered ONE; -PROPOFOL 200 MG/20 ML VIAL As Ordered ONE; -ROCURONIUM BROMIDE 50 MG/5 ML VIAL As Ordered ONE; +SENN-53 PO; -SENN1TAB40 PO; -dexameTHASONE 4 MG/ML 1ML VIAL (J1100) As Ordered ONE
[2019-11-12 12:21] LABS: BLOOD UREA NITROGEN 21 MG/DL (7-18); CREATININE FOR GFR 0.99 MG/DL (0.70-1.30); GLOMERULAR FILTRATION RATE > 60.0 (>42)
== END ==
LOC: M LAB 11:18
PROVIDERS: ATTEND Internal Medicine Pulmonary Disease
DX: R91.8 Other nonspecific abnormal finding of lung field (principal)

== ENCOUNTER → 2019-11-14 | Outpatient (CLI) | payer MEDICARE ==
[~2019-11-14] MED LIST changes: +ISOVUE-370 76% 100ML VIAL (Q9967) As Ordered ONE
--- NOTE | 2019-11-14 10:00 | REP ---
CT CHEST WITH IV CONTRAST: TECHNIQUE: Axial contrast enhanced images from the thoracic inlet to the upper abdomen using 100 mL Isovue 370 intravenous contrast material with multiplanar reformations. Comparison 07/26/2019 and 10/09/2017. Extensive alveolar infiltrates in the right lung seen on the study of 07/26/2019 have significantly improved. There are mild scattered residual ill-defined parenchymal opacities and interstitial opacities present throughout the right lung, predominantly in the right lower lobe. On the prior study there was a lesser degree of left lung infiltrates, which have also significantly improved with mild scattered residual interstitial opacities present. No new suspicious nodule is seen. There is mild diffuse bronchiectasis. Mild subcarinal adenopathy is unchanged with short axis dimension 1.2 cm. Other subcentimeter lymph nodes are seen in the mediastinum and hilar regions. No axillary adenopathy is seen. There is no thoracic aortic aneurysm or dissection. Heart is normal in size. There is no pleural or pericardial effusion. In the upper abdomen there is a stable ill-defined nodule in the superior right lobe probably representing a small hemangioma. A few calcified granulomas are seen in the liver and spleen. Along the anterior margin of the body of the pancreas there is a cystic structure 1.2 cm in diameter. There are degenerative changes of the spine. The patient has had a prior cholecystectomy. IMPRESSION: Previously noted alveolar opacities bilaterally have significantly improved. There are mild diffuse residual interstitial opacities with mild alveolar opacities in the right lower lobe. Stable mild subcarinal adenopathy. Recommend continued followup exam in 3 months. There is a cyst in the body of the pancreas along the anterior margin, 1.2 cm in diameter. Recommend dedicated MRI of the pancreas with and without contrast to further evaluate. Electronically Signed by Rodriguez Lujan MD 11/14/2019 01:40 P
== END ==
LOC: M RAD 08:56
PROVIDERS: ATTEND Internal Medicine Pulmonary Disease
DX: R91.8 Other nonspecific abnormal finding of lung field (principal); K86.2 Cyst of pancreas
CPT/HCPCS: 71260; Q9967

== ENCOUNTER → 2019-12-10 | Outpatient (REF) | payer MEDICARE ==
[~2019-12-10] MED LIST changes: -ISOVUE-370 76% 100ML VIAL (Q9967) As Ordered ONE
[2019-12-10 11:56] LABS: BASO % 0.5 % (0.0-1.0); EOS # 0.3 10^3/uL (0.0-0.5); EOS % 3.8 % (0.0-3.0); HEMATOCRIT 47.2 % (42.0-52.0); HEMOGLOBIN 15.4 g/dl (13.5-17.5); LYMPH # 1.6 10^3/uL (1.5-5.0); LYMPH % 24.8 % (24.0-44.0); MEAN CORPUSCULAR HEMOGLOBIN 31.2 pg (27.0-33.0); MEAN CORPUSCULAR HGB CONC 32.6 g/dl (32.0-36.5); MEAN CORPUSCULAR VOLUME 95.7 fl (80.0-96.0); MONO # 0.6 10^3/uL (0.0-0.8); MONO % 9.1 % (0.0-5.0); NEUTROPHILS % 61.3 % (36.0-66.0); PLATELET COUNT, AUTOMATED 112 10^3/uL (150-450); RED BLOOD COUNT 4.93 10^6/uL (4.30-6.10); WHITE BLOOD COUNT 6.5 10^3/uL (4.0-10.0)
[2019-12-10 12:17] LABS: ALT/SGPT 26 U/L (12-78); BILIRUBIN,TOTAL 0.8 MG/DL (0.2-1.0); BLOOD UREA NITROGEN 22 MG/DL (7-18); CARBON DIOXIDE LEVEL 27 MEQ/L (21-32); CHLORIDE LEVEL 106 MEQ/L (98-107); CHOLESTEROL LEVEL 154 MG/DL (<200); GLOMERULAR FILTRATION RATE > 60.0 (>42); GLUCOSE, FASTING 87 MG/DL (70-100); HDL CHOLESTEROL 40 MG/DL (>40); LDL CHOLESTEROL 96 MG/DL (<100); NON-HDL-C 114 MG/DL; POTASSIUM SERUM 4.4 MEQ/L (3.5-5.1); PROSTATIC SPECIFIC AG MONITOR 3.31 NG/ML (< 4.00); SODIUM LEVEL 139 MEQ/L (136-145); TRIGLYCERIDES LEVEL 90 MG/DL (<150)
== END ==
LOC: M LABDRAW1 11:30
PROVIDERS: ATTEND Family Medicine
DX: J84.116 Cryptogenic organizing pneumonia (principal); E78.5 Hyperlipidemia, unspecified; R97.20 Elevated prostate specific antigen [PSA]

== ENCOUNTER → 2019-12-25 | Outpatient (CLI) | payer MEDICARE ==
[~2019-12-25] MED LIST changes: +PROHANCE 279.3MG/ML 15ML VIAL (A9576) As Ordered ONE
--- NOTE | 2019-12-25 13:51 | REP ---
MRI PANCREAS WITH AND WITHOUT CONTRAST: TECHNIQUE: Multiple sequences obtained in the axial and coronal planes prior to and following the intravenous administration of 15 mL ProHance. Correlation is made with CT of the chest, 11/14/2019. In the anterior body of the pancreas, there is again noted a cystic lesion. It is quite hypointense on T1 and is hyperintense on T2. I am uncertain whether it communicates with the pancreatic duct. It measures 1.3 cm in diameter. There is no calcification of the cyst, and there is no internal soft tissue component or enhancement. Slightly medial and posterior to this, there is a bilobed smaller cystic structure measuring about 10 x 6 mm, again with no calcifications associated with it and no enhancement. There is a thin septation internally, or this could represent two adjacent smaller cysts. There is no pancreatic duct dilatation. There is no peripancreatic or periaortic adenopathy. On the dome of the liver, there is a lobulated cyst which does not enhance, measuring about 1 cm in diameter. Patient has had a prior cholecystectomy. There is not significant biliary dilatation. Common bile duct has a maximum diameter of 7 mm. Spleen appears unremarkable as do the adrenal glands. Small parapelvic cysts are seen in both kidneys. No ascites is seen. IMPRESSION: Two adjacent cystic structures in the body of the pancreas, as discussed in detail above. I am unable to determine if these communicate with the pancreatic duct. There is no suspicious enhancement nor enhancing soft tissue component. The larger is anteriorly located and measures approximately 1.3 cm maximally. No adenopathy. Recommend followup MRI in 1 year. Electronically Signed by Rodriguez Lujan MD 12/25/2019 11:05 P
== END ==
LOC: M RAD 10:27
PROVIDERS: ATTEND Family Medicine
DX: K86.2 Cyst of pancreas (principal)
CPT/HCPCS: 74183; A9576

== ENCOUNTER → 2020-03-03 | Outpatient (REF) | payer MEDICARE ==
[~2020-03-03] MED LIST changes: -PROHANCE 279.3MG/ML 15ML VIAL (A9576) As Ordered ONE; -ROPI0.5T PO; +ROPI0.5T3 PO
[2020-03-03 15:54] LABS: BLOOD UREA NITROGEN 21 MG/DL (7-18); CREATININE FOR GFR 1.09 MG/DL (0.70-1.30); GLOMERULAR FILTRATION RATE > 60.0 (>42)
== END ==
LOC: M LABDRAW1 15:17
PROVIDERS: ATTEND Internal Medicine Pulmonary Disease
DX: R91.8 Other nonspecific abnormal finding of lung field (principal)

== ENCOUNTER → 2020-03-06 | Outpatient (CLI) | payer MEDICARE ==
[~2020-03-06] MED LIST changes: +ISOVUE-370 76% 100ML VIAL (Q9967) As Ordered ONE
--- NOTE | 2020-03-06 10:59 | REP ---
REASON FOR EXAM: COMPARISON: Multiple the latest 11/14/2019. Contrast 100 mL of Isovue 370. There is stable mediastinal adenopathy. There are no pleural or pericardial effusions. There is no change in the appearance of the imaged upper abdomen or imaged osseous structures. Evaluation of the lung cast again shows biapical pleuroparenchymal scarring, status quo. Evaluation of the lung cast again shows scattered bibasilar opacities but improved from 11/14/2019. There are no new abnormal nodules, masses, or opacities. There is cylindrical bronchiectasis status quo. IMPRESSION: 1. Adenopathy is again noted and essentially unchanged. 2. Chronic biapical pleuroparenchymal scarring status quo. 3. Improved bibasilar opacities. Consider continued followup to complete resolution. Electronically Signed by Otto Rocha DO 03/06/2020 11:36 A
== END ==
LOC: M RAD 09:35
PROVIDERS: ATTEND Internal Medicine Pulmonary Disease
DX: R91.8 Other nonspecific abnormal finding of lung field (principal)
CPT/HCPCS: 71260; Q9967

== ENCOUNTER → 2020-06-23 | Outpatient (REF) | payer MEDICARE ==
[~2020-06-23] MED LIST changes: -ISOVUE-370 76% 100ML VIAL (Q9967) As Ordered ONE
[2020-07-17 12:58] LABS: HEMATOCRIT 47.2 % (42.0-52.0); HEMOGLOBIN 15.4 g/dl (13.5-17.5); MEAN CORPUSCULAR HEMOGLOBIN 31.5 pg (27.0-33.0); MEAN CORPUSCULAR HGB CONC 32.6 g/dl (32.0-36.5); MEAN CORPUSCULAR VOLUME 96.5 fl (80.0-96.0); PLATELET COUNT, AUTOMATED 96 10^3/uL (150-450); RED BLOOD COUNT 4.89 10^6/uL (4.30-6.10); WHITE BLOOD COUNT 6.8 10^3/uL (4.0-10.0)
[2020-07-27 15:16] LABS: ALBUMIN 4.1 GM/DL (3.2-5.2); ALT/SGPT 31 U/L (12-78); BLOOD UREA NITROGEN 21 MG/DL (7-18); CARBON DIOXIDE LEVEL 29 MEQ/L (21-32); CHLORIDE LEVEL 108 MEQ/L (98-107); CHOLESTEROL LEVEL 156 MG/DL (<200); CHOLESTEROL RISK RATIO 3.627 (<5); CREATININE FOR GFR 1.06 MG/DL (0.70-1.30); GLOMERULAR FILTRATION RATE > 60.0 (>42); GLUCOSE, FASTING 94 MG/DL (70-100); HDL CHOLESTEROL 43 MG/DL (>40); LDL CHOLESTEROL 96 MG/DL (<100); NON-HDL-C 113 MG/DL; POTASSIUM SERUM 4.2 MEQ/L (3.5-5.1); PROSTATIC SPECIFIC AG MONITOR 2.91 NG/ML (< 4.00); SODIUM LEVEL 142 MEQ/L (136-145); TOTAL PROTEIN 7.1 GM/DL (6.4-8.2); TRIGLYCERIDES LEVEL 83 MG/DL (<150)
== END ==
LOC: M SFHCADAM 15:22
PROVIDERS: ATTEND Family Medicine
DX: R97.20 Elevated prostate specific antigen [PSA] (principal); E78.5 Hyperlipidemia, unspecified; Z86.69 Personal history of other diseases of the nervous system and sense organs

== ENCOUNTER → 2020-09-10 | Outpatient (REF) | payer MEDICARE | LOC: M LAB REF 15:16 | PROVIDERS: ATTEND Internal Medicine Pulmonary Disease | DX: J47.9 Bronchiectasis, uncomplicated (principal) ==

== ENCOUNTER → 2020-09-11 | Outpatient (REF) | payer MEDICARE | LOC: M LAB REF 17:08 | PROVIDERS: ATTEND Internal Medicine Pulmonary Disease | DX: J47.9 Bronchiectasis, uncomplicated (principal) ==

== ENCOUNTER → 2020-10-15 | Outpatient (CLI) | payer SELFPAY | LOC: M LABSMTC 11:51 | PROVIDERS: ATTEND Pediatrics | DX: Z20.828 Contact with and (suspected) exposure to other viral communicable diseases (principal) ==

== ENCOUNTER → 2021-05-03 | Outpatient (REF) | payer MEDICARE ==
[~2021-05-03] MED LIST changes: +QUET50TA3 PO; -QUET5TAB PO
== END ==
LOC: M LAB REF 16:58
PROVIDERS: ATTEND Internal Medicine Pulmonary Disease
DX: J47.9 Bronchiectasis, uncomplicated (principal)

== ENCOUNTER → 2022-03-10 | Outpatient (CLI) | payer MEDICARE ==
[~2022-03-10] MED LIST changes: -QUET50TA3 PO; +QUET50TA4 PO
[2022-03-10 10:30] LABS: HEMATOCRIT 47.9 % (42.0-52.0); HEMOGLOBIN 15.9 g/dl (13.5-17.5); MEAN CORPUSCULAR HEMOGLOBIN 32.3 pg (27.0-33.0); MEAN CORPUSCULAR HGB CONC 33.2 g/dl (32.0-36.5); MEAN CORPUSCULAR VOLUME 97.2 fl (80.0-96.0); RED BLOOD COUNT 4.93 10^6/uL (4.30-6.10); WHITE BLOOD COUNT 6.4 10^3/uL (4.0-10.0)
[2022-03-10 10:45] LABS: ALBUMIN 4.2 GM/DL (3.2-5.2); ALT/SGPT 28 U/L (12-78); BILIRUBIN,TOTAL 1.3 MG/DL (0.2-1.0); BLOOD UREA NITROGEN 22 MG/DL (7-18); CARBON DIOXIDE LEVEL 28 MEQ/L (21-32); CHLORIDE LEVEL 109 MEQ/L (98-107); CHOLESTEROL LEVEL 156 MG/DL (<200); CHOLESTEROL RISK RATIO 3.319 (<5); CREATININE FOR GFR 0.99 MG/DL (0.70-1.30); GLOMERULAR FILTRATION RATE > 60.0 (>42); GLUCOSE, FASTING 92 MG/DL (70-100); HDL CHOLESTEROL 47 MG/DL (>40); LDL CHOLESTEROL 98 MG/DL (<100); NON-HDL-C 109 MG/DL; POTASSIUM SERUM 4.9 MEQ/L (3.5-5.1); SODIUM LEVEL 141 MEQ/L (136-145); TOTAL PROTEIN 7.4 GM/DL (6.4-8.2); TRIGLYCERIDES LEVEL 57 MG/DL (<150)
[2022-03-10 11:07] LABS: PLATELET COUNT, AUTOMATED 89 10^3/uL (150-450)
== END ==
LOC: M PLALAB 08:08
PROVIDERS: ATTEND Physician Assistant
DX: Z00.00 Encounter for general adult medical examination without abnormal findings (principal); I11.9 Hypertensive heart disease without heart failure; E78.5 Hyperlipidemia, unspecified; R97.20 Elevated prostate specific antigen [PSA]
CPT/HCPCS: 36415; 80053; 80061; 85027; 85049; 85055; G0103

== ENCOUNTER → 2022-03-28 | Outpatient (REF) | payer MEDICARE ==
[2022-03-28 16:20] LABS: BASO % 0.5 % (0.0-1.0); EOS # 0.3 10^3/uL (0.0-0.5); EOS % 3.3 % (0.0-3.0); HEMATOCRIT 44.8 % (42.0-52.0); LYMPH # 1.6 10^3/uL (1.5-5.0); LYMPH % 20.4 % (24.0-44.0); MEAN CORPUSCULAR HEMOGLOBIN 32.6 pg (27.0-33.0); MEAN CORPUSCULAR HGB CONC 33.5 g/dl (32.0-36.5); MEAN CORPUSCULAR VOLUME 97.4 fl (80.0-96.0); MONO # 0.7 10^3/uL (0.0-0.8); MONO % 9.3 % (2.0-8.0); NEUTROPHILS # 5.1 10^3/uL (1.5-8.5); NEUTROPHILS % 66.1 % (36.0-66.0); PLATELET COUNT, AUTOMATED 108 10^3/uL (150-450); WHITE BLOOD COUNT 7.7 10^3/uL (4.0-10.0)
[2022-03-28 16:45] LABS: ALBUMIN 4.4 GM/DL (3.2-5.2); ALT/SGPT 32 U/L (12-78); BILIRUBIN,TOTAL 0.8 MG/DL (0.2-1.0); BLOOD UREA NITROGEN 20 MG/DL (7-18); CALCIUM LEVEL 9.9 MG/DL (8.8-10.2); CARBON DIOXIDE LEVEL 29 MEQ/L (21-32); CHLORIDE LEVEL 107 MEQ/L (98-107); CHOLESTEROL LEVEL 157 MG/DL (<200); CHOLESTEROL RISK RATIO 3.738 (<5); CREATININE FOR GFR 1.03 MG/DL (0.70-1.30); GLOMERULAR FILTRATION RATE > 60.0 (>42); GLUCOSE, FASTING 92 MG/DL (70-100); HDL CHOLESTEROL 42 MG/DL (>40); LDL CHOLESTEROL 90 MG/DL (<100); NON-HDL-C 115 MG/DL; POTASSIUM SERUM 4.4 MEQ/L (3.5-5.1); SODIUM LEVEL 141 MEQ/L (136-145); TOTAL PROTEIN 7.4 GM/DL (6.4-8.2); TRIGLYCERIDES LEVEL 125 MG/DL (<150)
== END ==
LOC: M SFHCADAM 13:40
PROVIDERS: ATTEND Family Medicine
DX: Z00.00 Encounter for general adult medical examination without abnormal findings (principal); I11.9 Hypertensive heart disease without heart failure; E78.5 Hyperlipidemia, unspecified; R97.20 Elevated prostate specific antigen [PSA]; D69.6 Thrombocytopenia, unspecified
CPT/HCPCS: 80053; 80061; 85025; G0103

== ENCOUNTER → 2022-04-12 | Outpatient (CLI) | payer MEDICARE | LOC: M ADAMS 10:40 | PROVIDERS: ATTEND Family Medicine | DX: J47.9 Bronchiectasis, uncomplicated (principal); R91.1 Solitary pulmonary nodule ==

== ENCOUNTER → 2022-04-15 | Outpatient (CLI) | payer MEDICARE | LOC: M RAD 11:29 | PROVIDERS: ATTEND Family Medicine | DX: R05.9 Cough, unspecified (principal); Z20.822 Contact with and (suspected) exposure to COVID-19; J47.9 Bronchiectasis, uncomplicated; R91.1 Solitary pulmonary nodule; Z90.49 Acquired absence of other specified parts of digestive tract; K76.89 Other specified diseases of liver ==

== ENCOUNTER → 2022-08-22 | Outpatient (CLI) | payer MEDICARE ==
[~2022-08-22] MED LIST changes: +ACET10VL; +AMOX875T2; +BUDE10.7; +FLUTISP; +PRED10TA2; +SYMB16INH INH; +vitamin d PO
== END ==
LOC: M RAD 08:29
PROVIDERS: ATTEND Internal Medicine Pulmonary Disease
DX: R91.8 Other nonspecific abnormal finding of lung field (principal)

== ENCOUNTER → 2022-08-30 | Outpatient (CLI) | payer MEDICARE ==
[2022-08-30 14:16] LABS: HEMATOCRIT 45.3 % (42.0-52.0); HEMOGLOBIN 14.4 g/dl (13.5-17.5); MEAN CORPUSCULAR HEMOGLOBIN 31.7 pg (27.0-33.0); MEAN CORPUSCULAR HGB CONC 31.8 g/dl (32.0-36.5); MEAN CORPUSCULAR VOLUME 99.8 fl (80.0-96.0); PLATELET COUNT, AUTOMATED 104 10^3/uL (150-450); RED BLOOD COUNT 4.54 10^6/uL (4.30-6.10); WHITE BLOOD COUNT 13.2 10^3/uL (4.0-10.0)
[2022-08-30 14:43] LABS: ALBUMIN 3.7 GM/DL (3.2-5.2); ALT/SGPT 25 U/L (12-78); BILIRUBIN,TOTAL 2.4 MG/DL (0.2-1.0); BLOOD UREA NITROGEN 19 MG/DL (7-18); CALCIUM LEVEL 9.7 MG/DL (8.8-10.2); CARBON DIOXIDE LEVEL 27 MEQ/L (21-32); CHLORIDE LEVEL 104 MEQ/L (98-107); CREATININE FOR GFR 0.91 MG/DL (0.70-1.30); GLOMERULAR FILTRATION RATE > 60.0 (>42); GLUCOSE, FASTING 152 MG/DL (70-100); NT-PRO BNP 2903 PG/ML (<450); POTASSIUM SERUM 4.4 MEQ/L (3.5-5.1); SODIUM LEVEL 137 MEQ/L (136-145); TOTAL PROTEIN 7.1 GM/DL (6.4-8.2)
== END ==
LOC: M PLALAB 09:18
PROVIDERS: ATTEND Family Medicine
DX: I11.9 Hypertensive heart disease without heart failure (principal)

== ENCOUNTER → 2022-08-31 | Outpatient (REF) | payer MEDICARE | LOC: M SFHCADAM 15:36 | PROVIDERS: ATTEND Family Medicine | DX: Z53.20 Procedure and treatment not carried out because of patient's decision for unspecified reasons (principal) ==

== ENCOUNTER → 2022-09-01 | Outpatient (REF) | payer MEDICARE ==
[2022-09-01 13:05] LABS: BASO % 0.2 % (0.0-1.0); EOS % 0.2 % (0.0-3.0); HEMATOCRIT 40.5 % (42.0-52.0); HEMOGLOBIN 13.3 g/dl (13.5-17.5); LYMPH # 0.7 10^3/uL (1.5-5.0); LYMPH % 5.9 % (24.0-44.0); MEAN CORPUSCULAR HEMOGLOBIN 32.5 pg (27.0-33.0); MEAN CORPUSCULAR HGB CONC 32.8 g/dl (32.0-36.5); MONO % 8.4 % (2.0-8.0); NEUTROPHILS # 9.6 10^3/uL (1.5-8.5); NEUTROPHILS % 84.6 % (36.0-66.0); PLATELET COUNT, AUTOMATED 114 10^3/uL (150-450); RED BLOOD COUNT 4.09 10^6/uL (4.30-6.10); WHITE BLOOD COUNT 11.4 10^3/uL (4.0-10.0)
[2022-09-01 13:17] LABS: INR 1.14
[2022-09-01 13:46] LABS: FERRITIN 251 NG/ML (26-388); FREE T4 1.66 NG/DL (0.76-1.46); IRON (FE) 24 UG/DL (65-175); RHEUMATOID FACTOR QUANT < 10.0 IU/ML (<15.0); TOTAL IRON BINDING CAPACITY 266 UG/DL (250-450)
[2022-09-01 14:22] LABS: HEPATITIS B SURFACE ANTIBODY NEGATIVE (POSITIVE)
[2022-09-01 14:32] LABS: HEPATITIS B SURFACE ANTIGEN NEGATIVE (NEGATIVE)
[2022-09-01 15:01] LABS: HEPATITIS B CORE ANTIBODY IGM NEGATIVE (NEGATIVE)
[2022-09-06 17:09] LABS: ANA (HEP2) Negative (.); ANTI-MITOCHONDRIAL ANTIBODY <20.0 Units (0.0-20.0); LIVER-KIDNEY MICROSOMAL ABY <20.1 Units (0.0-20.0)
== END ==
LOC: M SFHCADAM 09:00
PROVIDERS: ATTEND Family Medicine
DX: I27.20 Pulmonary hypertension, unspecified (principal); K74.60 Unspecified cirrhosis of liver; I48.0 Paroxysmal atrial fibrillation
CPT/HCPCS: 81256; 82105; 82397; 82728; 83520; 83550; 83883; 84439; 84443; 85025; 85610; 86038; 86255; 86376; 86431; 86705; 86706; 87340; G0472

== ENCOUNTER → 2022-09-29 | Outpatient (CLI) | payer MEDICARE | LOC: M RAD 07:24 | PROVIDERS: ATTEND Family Medicine | DX: K74.60 Unspecified cirrhosis of liver (principal) ==

== ENCOUNTER → 2022-12-30 | Outpatient (REF) | payer MEDICARE ==
[2022-12-30 17:14] LABS: BLOOD UREA NITROGEN 20 MG/DL (9-23); CALCIUM LEVEL 9.6 MG/DL (8.3-10.6); CARBON DIOXIDE LEVEL 31 MMOL/L (20-31); CHLORIDE LEVEL 102 MMOL/L (98-107); CREATININE FOR GFR 1.19 MG/DL (0.70-1.30); GLOMERULAR FILTRATION RATE > 60.0 (>42); GLUCOSE, FASTING 85 MG/DL (74-106); POTASSIUM SERUM 4.6 MMOL/L (3.5-5.1); SODIUM LEVEL 138 MMOL/L (136-145)
== END ==
LOC: M SFHCADAM 16:08
PROVIDERS: ATTEND Family Medicine
DX: I11.9 Hypertensive heart disease without heart failure (principal)

== ENCOUNTER → 2023-01-16 | Outpatient (CLI) | payer MEDICARE ==
[~2023-01-16] MED LIST changes: +PROHANCE 279.3MG/ML 15ML VIAL As Ordered ONE
== END ==
LOC: M RAD 16:14
DX: R18.8 Other ascites (principal); K74.60 Unspecified cirrhosis of liver; D73.1 Hypersplenism
CPT/HCPCS: 74183; A9576

== ENCOUNTER → 2023-02-28 | Outpatient (REF) | payer MEDICARE ==
[~2023-02-28] MED LIST changes: +FLUT50SP17; -FLUTISP; -PROHANCE 279.3MG/ML 15ML VIAL As Ordered ONE
[2023-02-28 16:54] LABS: BLOOD UREA NITROGEN 20 MG/DL (9-23); CALCIUM LEVEL 9.5 MG/DL (8.3-10.6); CARBON DIOXIDE LEVEL 28 MMOL/L (20-31); CHLORIDE LEVEL 103 MMOL/L (98-107); CREATININE FOR GFR 0.74 MG/DL (0.70-1.30); GLOMERULAR FILTRATION RATE > 60.0 (>35); GLUCOSE, FASTING 93 MG/DL (74-106); POTASSIUM SERUM 4.2 MMOL/L (3.5-5.1); SODIUM LEVEL 139 MMOL/L (136-145)
== END ==
LOC: M LABDRWAD 12:47
DX: I50.9 Heart failure, unspecified (principal)

== ENCOUNTER → 2023-03-07 | Outpatient (CLI) | payer MEDICARE ==
[2023-03-07 15:23] LABS: BLOOD UREA NITROGEN 26 MG/DL (9-23); CALCIUM LEVEL 9.9 MG/DL (8.3-10.6); CARBON DIOXIDE LEVEL 32 MMOL/L (20-31); CHLORIDE LEVEL 101 MMOL/L (98-107); CREATININE FOR GFR 0.93 MG/DL (0.70-1.30); GLOMERULAR FILTRATION RATE > 60.0 (>35); GLUCOSE, FASTING 85 MG/DL (74-106); SODIUM LEVEL 138 MMOL/L (136-145)
== END ==
LOC: M LAB 14:08
DX: I50.20 Unspecified systolic (congestive) heart failure (principal)

== ENCOUNTER → 2023-03-16 | Outpatient (CLI) | payer MEDICARE ==
[2023-03-16 13:09] LABS: BLOOD UREA NITROGEN 21 MG/DL (9-23); CALCIUM LEVEL 9.6 MG/DL (8.3-10.6); CARBON DIOXIDE LEVEL 29 MMOL/L (20-31); CHLORIDE LEVEL 102 MMOL/L (98-107); CREATININE FOR GFR 0.89 MG/DL (0.70-1.30); GLOMERULAR FILTRATION RATE > 60.0 (>35); GLUCOSE, FASTING 76 MG/DL (74-106); POTASSIUM SERUM 4.7 MMOL/L (3.5-5.1); SODIUM LEVEL 137 MMOL/L (136-145)
== END ==
LOC: M LAB 11:13
DX: I50.9 Heart failure, unspecified (principal)

== ENCOUNTER → 2023-03-30 | Outpatient (CLI) | payer MEDICARE ==
[2023-03-30 11:12] LABS: BLOOD UREA NITROGEN 24 MG/DL (9-23); CALCIUM LEVEL 9.4 MG/DL (8.3-10.6); CARBON DIOXIDE LEVEL 25 MMOL/L (20-31); CHLORIDE LEVEL 106 MMOL/L (98-107); CREATININE FOR GFR 0.94 MG/DL (0.70-1.30); GLOMERULAR FILTRATION RATE > 60.0 (>35); GLUCOSE, FASTING 129 MG/DL (74-106); POTASSIUM SERUM 4.1 MMOL/L (3.5-5.1); SODIUM LEVEL 137 MMOL/L (136-145)
== END ==
LOC: M LAB 09:30
DX: I50.9 Heart failure, unspecified (principal)

== ENCOUNTER → 2023-04-07 | Outpatient (CLI) | payer MEDICARE ==
[2023-04-07 11:24] LABS: BLOOD UREA NITROGEN 26 MG/DL (9-23); CALCIUM LEVEL 8.8 MG/DL (8.3-10.6); CARBON DIOXIDE LEVEL 28 MMOL/L (20-31); CHLORIDE LEVEL 107 MMOL/L (98-107); CREATININE FOR GFR 1.04 MG/DL (0.70-1.30); GLOMERULAR FILTRATION RATE > 60.0 (>35); GLUCOSE, FASTING 86 MG/DL (74-106); POTASSIUM SERUM 4.4 MMOL/L (3.5-5.1); SODIUM LEVEL 140 MMOL/L (136-145)
== END ==
LOC: M LAB 10:33
PROVIDERS: ATTEND Internal Medicine Cardiovascular Disease
DX: I50.9 Heart failure, unspecified (principal)

== ENCOUNTER → 2023-04-14 | Outpatient (CLI) | payer MEDICARE ==
[2023-04-14 08:29] LABS: BLOOD UREA NITROGEN 26 MG/DL (9-23); CALCIUM LEVEL 9.1 MG/DL (8.3-10.6); CARBON DIOXIDE LEVEL 27 MMOL/L (20-31); CHLORIDE LEVEL 107 MMOL/L (98-107); CREATININE FOR GFR 0.96 MG/DL (0.70-1.30); GLOMERULAR FILTRATION RATE > 60.0 (>35); GLUCOSE, FASTING 98 MG/DL (74-106); POTASSIUM SERUM 4.4 MMOL/L (3.5-5.1); SODIUM LEVEL 141 MMOL/L (136-145)
== END ==
LOC: M LAB 07:21
PROVIDERS: ATTEND Internal Medicine Cardiovascular Disease
DX: I50.9 Heart failure, unspecified (principal)

== ENCOUNTER → 2023-04-28 | Outpatient (CLI) | payer MEDICARE ==
[2023-04-28 12:02] LABS: BLOOD UREA NITROGEN 28 MG/DL (9-23); CALCIUM LEVEL 9.3 MG/DL (8.3-10.6); CARBON DIOXIDE LEVEL 27 MMOL/L (20-31); CHLORIDE LEVEL 106 MMOL/L (98-107); CREATININE FOR GFR 1.06 MG/DL (0.70-1.30); GLOMERULAR FILTRATION RATE > 60.0 (>35); GLUCOSE, FASTING 113 MG/DL (74-106); POTASSIUM SERUM 4.2 MMOL/L (3.5-5.1); SODIUM LEVEL 140 MMOL/L (136-145)
== END ==
LOC: M LAB 10:42
PROVIDERS: ATTEND Internal Medicine Cardiovascular Disease
DX: I50.9 Heart failure, unspecified (principal)

== ENCOUNTER → 2023-05-02 | Outpatient (REF) | payer MEDICARE ==
[2023-05-02 13:51] LABS: HEMATOCRIT 40.5 % (42.0-52.0); MEAN CORPUSCULAR HEMOGLOBIN 32.2 pg (27.0-33.0); MEAN CORPUSCULAR HGB CONC 32.1 g/dl (32.0-36.5); MEAN CORPUSCULAR VOLUME 100.2 fl (80.0-96.0); RED BLOOD COUNT 4.04 10^6/uL (4.30-6.10); WHITE BLOOD COUNT 6.2 10^3/uL (4.0-10.0)
[2023-05-02 14:04] LABS: ALBUMIN 3.9 G/DL (3.2-5.2); ALKALINE PHOSPHATASE 159 U/L (46-116); ALT/SGPT 21 U/L (7.0-40); AST/SGOT 23 U/L (<34); BILIRUBIN,TOTAL 1.3 MG/DL (0.3-1.2); BLOOD UREA NITROGEN 25 MG/DL (9-23); CARBON DIOXIDE LEVEL 30 MMOL/L (20-31); CHLORIDE LEVEL 106 MMOL/L (98-107); CREATININE FOR GFR 1.02 MG/DL (0.70-1.30); GLOMERULAR FILTRATION RATE > 60.0 (>35); GLUCOSE, FASTING 86 MG/DL (74-106); POTASSIUM SERUM 4.4 MMOL/L (3.5-5.1); SODIUM LEVEL 141 MMOL/L (136-145); TOTAL PROTEIN 6.8 G/DL (5.7-8.2)
[2023-05-02 15:25] LABS: PLATELET COUNT, AUTOMATED 92 10^3/uL (150-450)
== END ==
LOC: M SFHCADAM 11:15
PROVIDERS: ATTEND Family Medicine
DX: K74.60 Unspecified cirrhosis of liver (principal); I27.20 Pulmonary hypertension, unspecified

== ENCOUNTER → 2023-06-12 | Outpatient (CLI) | payer MEDICARE ==
[~2023-06-12] MED LIST changes: -ROPI0.5T3 PO; +ROPI0.5T33 PO
[2023-06-12 09:34] LABS: HEMATOCRIT 41.5 % (42.0-52.0); HEMOGLOBIN 13.6 g/dl (13.5-17.5); MEAN CORPUSCULAR HEMOGLOBIN 32.8 pg (27.0-33.0); MEAN CORPUSCULAR HGB CONC 32.8 g/dl (32.0-36.5); RED BLOOD COUNT 4.15 10^6/uL (4.30-6.10); WHITE BLOOD COUNT 5.9 10^3/uL (4.0-10.0)
[2023-06-12 09:58] LABS: INR 1.08; PLATELET COUNT, AUTOMATED 87 10^3/uL (150-450); PROTHROMBIN TIME 14.2 SECONDS (12.5-14.5)
[2023-06-12 10:01] LABS: ALBUMIN 3.3 G/DL (3.2-5.2); ALKALINE PHOSPHATASE 127 U/L (46-116); ALT/SGPT 18 U/L (7.0-40); AST/SGOT 18 U/L (<34); BILIRUBIN,TOTAL 1.1 MG/DL (0.3-1.2); BLOOD UREA NITROGEN 22 MG/DL (9-23); CALCIUM LEVEL 9.7 MG/DL (8.3-10.6); CARBON DIOXIDE LEVEL 29 MMOL/L (20-31); CHLORIDE LEVEL 105 MMOL/L (98-107); CREATININE FOR GFR 0.97 MG/DL (0.70-1.30); GLOMERULAR FILTRATION RATE > 60.0 (>35); GLUCOSE, FASTING 107 MG/DL (74-106); POTASSIUM SERUM 3.8 MMOL/L (3.5-5.1); SODIUM LEVEL 141 MMOL/L (136-145)
== END ==
LOC: M LAB 08:50
PROVIDERS: ATTEND Internal Medicine Cardiovascular Disease
DX: I36.1 Nonrheumatic tricuspid (valve) insufficiency (principal)

== ENCOUNTER → 2023-06-22 | Outpatient (CLI) | payer MEDICARE ==
[2023-06-22 15:22] LABS: HEMATOCRIT 39.2 % (42.0-52.0); HEMOGLOBIN 13.2 g/dl (13.5-17.5); MEAN CORPUSCULAR HEMOGLOBIN 32.8 pg (27.0-33.0); MEAN CORPUSCULAR HGB CONC 33.7 g/dl (32.0-36.5); MEAN CORPUSCULAR VOLUME 97.3 fl (80.0-96.0); RED BLOOD COUNT 4.03 10^6/uL (4.30-6.10)
[2023-06-22 15:27] LABS: PLATELET COUNT, AUTOMATED 83 10^3/uL (150-450)
[2023-06-22 15:49] LABS: INR 1.18; PROTHROMBIN TIME 15.2 SECONDS (12.5-14.5)
[2023-06-22 15:52] LABS: ALBUMIN 3.2 G/DL (3.2-5.2); ALKALINE PHOSPHATASE 147 U/L (46-116); ALT/SGPT 19 U/L (7.0-40); AST/SGOT 25 U/L (<34); BILIRUBIN,TOTAL 0.7 MG/DL (0.3-1.2); BLOOD UREA NITROGEN 21 MG/DL (9-23); CALCIUM LEVEL 8.6 MG/DL (8.3-10.6); CARBON DIOXIDE LEVEL 26 MMOL/L (20-31); CHLORIDE LEVEL 105 MMOL/L (98-107); CREATININE FOR GFR 0.86 MG/DL (0.70-1.30); GLOMERULAR FILTRATION RATE > 60.0 (>35); GLUCOSE, FASTING 108 MG/DL (74-106); POTASSIUM SERUM 4.2 MMOL/L (3.5-5.1); SODIUM LEVEL 139 MMOL/L (136-145); TOTAL PROTEIN 5.9 G/DL (5.7-8.2)
== END ==
LOC: M LAB 14:17
PROVIDERS: ATTEND Internal Medicine Cardiovascular Disease
DX: I36.1 Nonrheumatic tricuspid (valve) insufficiency (principal)

== ENCOUNTER → 2023-07-13 | Outpatient (CLI) | payer MEDICARE ==
[2023-07-13 11:10] LABS: HEMATOCRIT 40.7 % (42.0-52.0); HEMOGLOBIN 13.4 g/dl (13.5-17.5); MEAN CORPUSCULAR HEMOGLOBIN 32.2 pg (27.0-33.0); MEAN CORPUSCULAR HGB CONC 32.9 g/dl (32.0-36.5); MEAN CORPUSCULAR VOLUME 97.8 fl (80.0-96.0); RED BLOOD COUNT 4.16 10^6/uL (4.30-6.10); WHITE BLOOD COUNT 6.5 10^3/uL (4.0-10.0)
[2023-07-13 11:15] LABS: PLATELET COUNT, AUTOMATED 95 10^3/uL (150-450)
[2023-07-13 11:26] LABS: INR 1.33; PROTHROMBIN TIME 16.1 SECONDS (12.5-14.5)
[2023-07-13 11:28] LABS: ALBUMIN 3.5 G/DL (3.2-5.2); ALKALINE PHOSPHATASE 141 U/L (46-116); ALT/SGPT 20 U/L (7.0-40); AST/SGOT 17 U/L (<34); BILIRUBIN,TOTAL 0.9 MG/DL (0.3-1.2); BLOOD UREA NITROGEN 23 MG/DL (9-23); CALCIUM LEVEL 9.5 MG/DL (8.3-10.6); CARBON DIOXIDE LEVEL 30 MMOL/L (20-31); CHLORIDE LEVEL 104 MMOL/L (98-107); CREATININE FOR GFR 0.93 MG/DL (0.70-1.30); GLOMERULAR FILTRATION RATE > 60.0 (>35); GLUCOSE, FASTING 92 MG/DL (74-106); POTASSIUM SERUM 4.5 MMOL/L (3.5-5.1); SODIUM LEVEL 140 MMOL/L (136-145); TOTAL PROTEIN 6.7 G/DL (5.7-8.2)
== END ==
LOC: M LAB 10:36
PROVIDERS: ATTEND Internal Medicine Cardiovascular Disease
DX: I36.1 Nonrheumatic tricuspid (valve) insufficiency (principal)

== ENCOUNTER → 2023-08-28 | Outpatient (CLI) | payer MEDICARE ==
[2023-08-28 14:51] LABS: HEMATOCRIT 40.7 % (42.0-52.0); HEMOGLOBIN 13.8 g/dl (13.5-17.5); MEAN CORPUSCULAR HEMOGLOBIN 33.1 pg (27.0-33.0); MEAN CORPUSCULAR HGB CONC 33.9 g/dl (32.0-36.5); MEAN CORPUSCULAR VOLUME 97.6 fl (80.0-96.0); RED BLOOD COUNT 4.17 10^6/uL (4.30-6.10); WHITE BLOOD COUNT 5.2 10^3/uL (4.0-10.0)
[2023-08-28 14:57] LABS: PLATELET COUNT, AUTOMATED 76 10^3/uL (150-450)
[2023-08-28 15:04] LABS: INR 1.29; PROTHROMBIN TIME 15.7 SECONDS (12.5-14.5)
[2023-08-28 15:37] LABS: ALBUMIN 3.7 G/DL (3.2-5.2); ALKALINE PHOSPHATASE 136 U/L (46-116); ALT/SGPT 26 U/L (7.0-40); AST/SGOT 32 U/L (<34); BLOOD UREA NITROGEN 22 MG/DL (9-23); CALCIUM LEVEL 8.9 MG/DL (8.3-10.6); CARBON DIOXIDE LEVEL 31 MMOL/L (20-31); CHLORIDE LEVEL 107 MMOL/L (98-107); CREATININE FOR GFR 1.06 MG/DL (0.70-1.30); GLOMERULAR FILTRATION RATE > 60.0 (>35); GLUCOSE, FASTING 101 MG/DL (74-106); POTASSIUM SERUM 4.3 MMOL/L (3.5-5.1); SODIUM LEVEL 142 MMOL/L (136-145); TOTAL PROTEIN 6.6 G/DL (5.7-8.2)
== END ==
LOC: M LAB 14:18
PROVIDERS: ATTEND Internal Medicine Cardiovascular Disease
DX: I36.1 Nonrheumatic tricuspid (valve) insufficiency (principal)

== ENCOUNTER → 2024-02-05 | Outpatient (CLI) | payer MEDICARE ==
[~2024-02-05] MED LIST changes: -FLUT50SP17; +FLUTISP
[2024-02-05 13:09] LABS: BLOOD UREA NITROGEN 19 MG/DL (9-23); CALCIUM LEVEL 8.3 MG/DL (8.3-10.6); CARBON DIOXIDE LEVEL 30 MMOL/L (20-31); CHLORIDE LEVEL 105 MMOL/L (98-107); CREATININE FOR GFR 0.88 MG/DL (0.70-1.30); GLOMERULAR FILTRATION RATE > 60.0 (>35); GLUCOSE, FASTING 84 MG/DL (74-106); POTASSIUM SERUM 3.8 MMOL/L (3.5-5.1); SODIUM LEVEL 139 MMOL/L (136-145)
== END ==
LOC: M LAB 11:29
PROVIDERS: ATTEND Nurse Practitioner Acute Care
DX: I50.32 Chronic diastolic (congestive) heart failure (principal)

== ENCOUNTER → 2024-05-16 | Outpatient (CLI) | payer MEDICARE ==
[2024-05-16 12:52] LABS: BLOOD UREA NITROGEN 26 MG/DL (9-23); CALCIUM LEVEL 8.8 MG/DL (8.3-10.6); CARBON DIOXIDE LEVEL 30 MMOL/L (20-31); CHLORIDE LEVEL 107 MMOL/L (98-107); GLOMERULAR FILTRATION RATE > 60.0 (>35); GLUCOSE, FASTING 102 MG/DL (74-106); POTASSIUM SERUM 4.4 MMOL/L (3.5-5.1); SODIUM LEVEL 139 MMOL/L (136-145)
== END ==
LOC: M LAB 11:14
PROVIDERS: ATTEND Nurse Practitioner Acute Care
DX: I50.30 Unspecified diastolic (congestive) heart failure (principal)

== ENCOUNTER → 2024-05-27 | Outpatient (CLI) | payer MEDICARE ==
[2024-05-27 15:47] LABS: BLOOD UREA NITROGEN 20 MG/DL (9-23); CALCIUM LEVEL 8.3 MG/DL (8.3-10.6); CARBON DIOXIDE LEVEL 32 MMOL/L (20-31); CHLORIDE LEVEL 106 MMOL/L (98-107); CREATININE FOR GFR 0.93 MG/DL (0.70-1.30); GLOMERULAR FILTRATION RATE > 60.0 (>35); GLUCOSE, FASTING 106 MG/DL (74-106); SODIUM LEVEL 141 MMOL/L (136-145)
== END ==
LOC: M LAB 14:39
PROVIDERS: ATTEND Nurse Practitioner Acute Care
DX: I50.30 Unspecified diastolic (congestive) heart failure (principal)

== ENCOUNTER → 2024-06-15 | Outpatient (CLI) | payer MEDICARE ==
[2024-06-15 13:07] LABS: BLOOD UREA NITROGEN 26 MG/DL (9-23); CALCIUM LEVEL 8.7 MG/DL (8.3-10.6); CARBON DIOXIDE LEVEL 31 MMOL/L (20-31); CHLORIDE LEVEL 105 MMOL/L (98-107); CREATININE FOR GFR 0.99 MG/DL (0.70-1.30); GLOMERULAR FILTRATION RATE > 60.0 (>35); GLUCOSE, FASTING 102 MG/DL (74-106); SODIUM LEVEL 141 MMOL/L (136-145)
== END ==
LOC: M LAB 11:39
PROVIDERS: ATTEND Nurse Practitioner Acute Care
DX: I50.30 Unspecified diastolic (congestive) heart failure (principal)

== ENCOUNTER → 2024-08-05 | Outpatient (CLI) | payer MEDICARE ==
[2024-08-05 10:38] LABS: BLOOD UREA NITROGEN 24 MG/DL (9-23); CALCIUM LEVEL 8.6 MG/DL (8.3-10.6); CARBON DIOXIDE LEVEL 32 MMOL/L (20-31); CHLORIDE LEVEL 107 MMOL/L (98-107); CREATININE FOR GFR 0.91 MG/DL (0.70-1.30); GLOMERULAR FILTRATION RATE > 60.0 (>35); GLUCOSE, FASTING 108 MG/DL (74-106); POTASSIUM SERUM 4.1 MMOL/L (3.5-5.1); SODIUM LEVEL 142 MMOL/L (136-145)
== END ==
LOC: M LAB 09:09
PROVIDERS: ATTEND Nurse Practitioner Acute Care
DX: I50.30 Unspecified diastolic (congestive) heart failure (principal)

== ENCOUNTER → 2024-09-10 | Outpatient (CLI) | payer MEDICARE ==
[2024-09-10 11:50] LABS: HEMATOCRIT 42.7 % (42.0-52.0); HEMOGLOBIN 14.1 g/dl (13.5-17.5); MEAN CORPUSCULAR HEMOGLOBIN 32.9 pg (27.0-33.0); MEAN CORPUSCULAR VOLUME 99.5 fl (80.0-96.0); PLATELET COUNT, AUTOMATED 122 10^3/uL (150-450); RED BLOOD COUNT 4.29 10^6/uL (4.30-6.10)
[2024-09-10 12:02] LABS: HEMOGLOBIN A1c 5.2 % (4.0-6.0)
[2024-09-10 12:05] LABS: INR 1.26; PROTHROMBIN TIME 15.4 SECONDS (12.5-14.5)
[2024-09-10 12:12] LABS: ALBUMIN 2.4 G/DL (3.2-5.2); ALKALINE PHOSPHATASE 102 U/L (46-116); ALT/SGPT 17 U/L (7.0-40); AST/SGOT 26 U/L (<34); BILIRUBIN,TOTAL 0.6 MG/DL (0.3-1.2); BLOOD UREA NITROGEN 24 MG/DL (9-23); CALCIUM LEVEL 8.9 MG/DL (8.3-10.6); CARBON DIOXIDE LEVEL 32 MMOL/L (20-31); CHLORIDE LEVEL 107 MMOL/L (98-107); CHOLESTEROL LEVEL 164 MG/DL (<200); CHOLESTEROL RISK RATIO 4.48 (<5); CREATININE FOR GFR 0.85 MG/DL (0.70-1.30); GLOMERULAR FILTRATION RATE > 60.0 (>35); GLUCOSE, FASTING 104 MG/DL (74-106); HDL CHOLESTEROL 36.6 MG/DL (>40); MAGNESIUM LEVEL 2.1 MG/DL (1.8-2.4); NON-HDL-C 127.4 MG/DL; POTASSIUM SERUM 4.3 MMOL/L (3.5-5.1); PSA SCREENING 1.35 NG/ML (< 4.00); SODIUM LEVEL 138 MMOL/L (136-145); TOTAL PROTEIN 5.1 G/DL (5.7-8.2); TRIGLYCERIDES LEVEL 117 MG/DL (<150)
[2024-09-10 12:14] LABS: FREE T4 1.24 NG/DL (0.89-1.76); THYROID STIMULATING HORMONE 1.712 uIU/ML (0.55-4.78)
== END ==
LOC: M LAB 10:55
PROVIDERS: ATTEND Family Medicine
DX: I48.21 Permanent atrial fibrillation (principal); I11.9 Hypertensive heart disease without heart failure; R25.1 Tremor, unspecified; I27.20 Pulmonary hypertension, unspecified; K74.60 Unspecified cirrhosis of liver; Z86.79 Personal history of other diseases of the circulatory system; Z12.5 Encounter for screening for malignant neoplasm of prostate; Z79.899 Other long term (current) drug therapy
CPT/HCPCS: 36415; 80053; 80061; 83036; 83735; 84439; 84443; 85027; 85610; G0103

== ENCOUNTER → 2024-09-11 | Outpatient (CLI) | payer MEDICARE | LOC: M RAD 12:42 | PROVIDERS: ATTEND Family Medicine | DX: R60.0 Localized edema (principal) ==

== ENCOUNTER → 2024-09-17 | Outpatient (REF) | payer MEDICARE | LOC: M SFHCADAM 10:53 | PROVIDERS: ATTEND Family Medicine | DX: K74.60 Unspecified cirrhosis of liver (principal) ==

== ENCOUNTER → 2024-10-21 | Outpatient (CLI) | payer MEDICARE | LOC: M RAD 08:13 | PROVIDERS: ATTEND Family Medicine | DX: K74.60 Unspecified cirrhosis of liver (principal) ==

== ENCOUNTER → 2024-11-28 | Outpatient (CLI) | payer MEDICARE ==
[2024-11-28 10:19] LABS: BLOOD UREA NITROGEN 27 MG/DL (9-23); CALCIUM LEVEL 8.6 MG/DL (8.3-10.6); CARBON DIOXIDE LEVEL 33 MMOL/L (20-31); CHLORIDE LEVEL 106 MMOL/L (98-107); CREATININE FOR GFR 0.88 MG/DL (0.70-1.30); GLOMERULAR FILTRATION RATE > 60.0 (>35); GLUCOSE, FASTING 124 MG/DL (74-106); POTASSIUM SERUM 4.1 MMOL/L (3.5-5.1); SODIUM LEVEL 142 MMOL/L (136-145)
== END ==
LOC: M LAB 09:08
PROVIDERS: ATTEND Internal Medicine Cardiovascular Disease
DX: I50.32 Chronic diastolic (congestive) heart failure (principal)

== ENCOUNTER 2024-12-09 07:20 | Inpatient (IN) | payer MEDICARE ==
[~2024-12-09] VITALS: Ht 172.7 cm; Wt 70.4 kg
[2024-12-09] VITALS (9 sets, daily range): BP systolic 114–116; BP diastolic 56–59; TEMP 97.4–98.9; O2SAT 90–95
[~2024-12-09 07:20] MED LIST changes: -ACET10VL; +ACET10VL INH; -BUDE10.7; +BUDE10.7 INH
[2024-12-09] MEDS: COMBIVENT RESPIMAT 100-20MCG INHALER 4GM INH SCH ×2 (08:04→17:53)
[2024-12-09 08:13] LABS: ABG BASE EXCESS -0.6 (-2.0-2.0); ABG HCO3 22.4 MMOL/L (22.0-26.0); ABG O2 SATURATION 96.1 % (95.0-99.0); ABG PARTIAL PRESSURE CO2 32.7 mmHg (35.0-45.0); ABG PARTIAL PRESSURE O2 83.8 mmHg (75.0-100.0); ABG STANDARD HCO3 23.9 MMOL/L. (22.0-26.0); ABG TOTAL CO2 23.4 MMOL/L (23.0-31.0); ABG pH (ARTERIAL) 7.454 UNITS (7.350-7.450)
[2024-12-09 08:17] LABS: HEMATOCRIT 45.8 % (42.0-52.0); HEMOGLOBIN 15.5 g/dl (13.5-17.5); MEAN CORPUSCULAR HEMOGLOBIN 32.4 pg (27.0-33.0); MEAN CORPUSCULAR HGB CONC 33.8 g/dl (32.0-36.5); MEAN CORPUSCULAR VOLUME 95.8 fl (80.0-96.0); PLATELET COUNT, AUTOMATED 201 10^3/uL (150-450); RED BLOOD COUNT 4.78 10^6/uL (4.30-6.10); WHITE BLOOD COUNT 12.3 10^3/uL (4.0-10.0)
[2024-12-09 08:28] LABS: INR 1.6; PARTIAL THROMBOPLASTIN TIME 38.8 SECONDS (24.8-34.2); PROTHROMBIN TIME 19.3 SECONDS (12.5-14.5)
[2024-12-09 08:40] LABS: CK-MB VALUE MASS 1.5 NG/ML (<3.6)
[2024-12-09 08:41] LABS: LDH LACTATE DEHYDROGENASE 312 U/L (120-246)
[2024-12-09 08:42] LABS: ALBUMIN 1.8 G/DL (3.2-5.2); ALKALINE PHOSPHATASE 130 U/L (40-129); ALT/SGPT 29 U/L (7.0-40); AST/SGOT 52 U/L (<34); BILIRUBIN,TOTAL 1.8 MG/DL (0.3-1.2); BLOOD UREA NITROGEN 31 MG/DL (9-23); CALCIUM LEVEL 8.6 MG/DL (8.3-10.6); CARBON DIOXIDE LEVEL 26 MMOL/L (20-31); CHLORIDE LEVEL 98 MMOL/L (98-107); GLOMERULAR FILTRATION RATE > 60.0 (>35); GLUCOSE, FASTING 101 MG/DL (74-106); POTASSIUM SERUM 5.1 MMOL/L (3.5-5.1); SODIUM LEVEL 133 MMOL/L (136-145); TOTAL PROTEIN 5.3 G/DL (5.7-8.2)
[2024-12-09 08:44] LABS: FERRITIN 302.1 NG/ML (10.5-307.3)
[2024-12-09 08:49] LABS: PROCALCITONIN 1.53 ng/ml
[2024-12-09 08:58] LABS: ATYPICAL LYMPH 1 % (0-5); LYMPHOCYTES 5 % (16-44); MONOCYTES 13 % (0-5); NEUTROPHILS 65 % (28-66); PLATELET ESTIMATE NORMAL (NORMAL)
[2024-12-09 08:59] LABS: POLYCHROMASIA 1+
[2024-12-09 09:00] LABS: C REACTIVE PROTEIN QUANTITATIV 27.61 MG/DL (<1.0); CPK CREATINE PHOSPHOKINASE 78 U/L (46-171); MB/CK RELATIVE INDEX 1.92 (< OR =4)
[2024-12-09] MEDS ORDERED: cefTRIAXone SOD 2 GM in DEXTROSE 5% (D5W) ADV/MINI-BAG 50 ML IV ONE (09:10)
[2024-12-09] MEDS: PIPERACILLIN/TAZOBACTAM SOD 4.5 GM in DEXTROSE 5% (D5W) ADV/MINI-BAG 50 ML IV ONE (09:31)
[2024-12-09] MEDS: [UNRECOGNIZED DRUG - OTHER] IV ONE (09:31)
[2024-12-09] MEDS: NS 0.9% IV ONE (09:31)
[2024-12-09 09:38] LABS: MB/CK RELATIVE INDEX 2.04 (< OR =4)
[2024-12-09] MEDS ORDERED: ALBU2.5V10 INH (09:57)
[2024-12-09] MEDS ORDERED: D3 S1CAP3 PO (10:00)
[2024-12-09] MEDS ORDERED: POTA1TAB23 PO (10:02)
[2024-12-09] MEDS ORDERED: EPLE25TA15 PO (10:02)
[2024-12-09] MEDS ORDERED: NIRM1TAB14 PO (10:05)
[2024-12-09] MEDS ORDERED: TORS20TA2 PO (10:09)
[2024-12-09] MEDS ORDERED: ALBUTEROL SULFATE 2.5MG/0.5ML INH NEB SOLN NEB PRN (11:30)
[2024-12-09] MEDS ORDERED: VANCOMYCIN HCL 1,000 MG, VIAL MATE ADAPTER 1 EACH in NS 250 ML IV SCH (11:30)
[2024-12-09] MEDS ORDERED: LORazepam 2 MG/ML 1ML VIAL IV STA (11:50)
[2024-12-09] MEDS ORDERED: IPRATROPIUM 0.5MG/ALBUTEROL 2.5MG INH SOL UD 3ML (DUONEB) NEB SCH (12:00)
[2024-12-09] MEDS: methylPREDNISolone 40MG 1ML VIAL IV SCH (12:19)
[2024-12-09] MEDS: VANCOMYCIN HCL 1,500 MG, VIAL MATE ADAPTER 1 EACH in NS 500 ML IV ONE (12:19)
[2024-12-09] MEDS ORDERED: ACETAMINOPHEN 325 MG TAB PO PRN (12:35)
[2024-12-09] MEDS ORDERED: CETI-24 PO (15:43)
[2024-12-09] MEDS ORDERED: ELIQ5TAB PO (15:43)
[2024-12-09] MEDS ORDERED: HOME MED LIST COMPLETE! XX SCH (15:45)
[2024-12-09] MEDS: AZITHROMYCIN 250MG TABLET PO SCH (16:10)
[2024-12-09] MEDS: PIPERACILLIN/TAZOBACTAM SOD 4.5 GM in DEXTROSE 5% (D5W) ADV/MINI-BAG 50 ML IV SCH (16:11)
[2024-12-09] MEDS ORDERED: ACETYLCYSTEINE 10% 30ML VIAL INH PRN (16:25)
[2024-12-09] MEDS ORDERED: PIPERACILLIN/TAZOBACTAM SOD 4.5 GM in DEXTROSE 5% (D5W) ADV/MINI-BAG 50 ML IV SCH (17:00)
[2024-12-09] MEDS: UNRESOLVED PATIENT OWN MED ORDER XX SCH (21:00)
[2024-12-09] MEDS ORDERED: ENTER DRUG NAME HERE (PATIENT'S OWN MED) PO SCH (21:00)
[2024-12-09] MEDS: ALBUTEROL 90 MCG/ACT 8GM HFA INHALER INH SCH (21:01)
[2024-12-09] MEDS: VANCOMYCIN HCL 750 MG, VIAL MATE ADAPTER 1 EACH in NS 250 ML IV SCH (21:05)
[2024-12-09] MEDS: APIXABAN 5 MG TAB (ELIQUIS) PO SCH (21:05)
[2024-12-09] MEDS: REMDESIVIR 200 MG in NS 250 ML IV ONE (21:05)
[2024-12-09] MEDS: CARVedilol 3.125 MG TAB PO SCH (21:06)
[2024-12-10] VITALS (29 sets, daily range): BP systolic 100–152; BP diastolic 60–73; TEMP 97.7–98.9; O2SAT 88–95
[2024-12-10 04:11] LABS: VENOUS BASE EXCESS -3.8 (-2.0-2.0); VENOUS HCO3 20.2 MMOL/L (23.0-27.0); VENOUS O2 SATURATION 96.9 % (60.0-80.0); VENOUS PARTIAL PRESSURE CO2 33.9 mmHg (38.0-50.0); VENOUS PARTIAL PRESSURE O2 91.8 mmHg (30.0-50.0); VENOUS PH 7.393 UNITS (7.330-7.430); VENOUS STANDARD HCO3 21.4 MMOL/L; VENOUS TOTAL CO2 21.2 MMOL/L (24.0-28.0)
[2024-12-10 04:15] LABS: HEMOGLOBIN 14.6 g/dl (13.5-17.5); MEAN CORPUSCULAR HGB CONC 34.8 g/dl (32.0-36.5); MEAN CORPUSCULAR VOLUME 94.8 fl (80.0-96.0); PLATELET COUNT, AUTOMATED 180 10^3/uL (150-450); RED BLOOD COUNT 4.43 10^6/uL (4.30-6.10); WHITE BLOOD COUNT 14.3 10^3/uL (4.0-10.0)
[2024-12-10 04:35] LABS: BLOOD UREA NITROGEN 37 MG/DL (9-23); CALCIUM LEVEL 7.9 MG/DL (8.3-10.6); CARBON DIOXIDE LEVEL 23 MMOL/L (20-31); CHLORIDE LEVEL 102 MMOL/L (98-107); CREATININE FOR GFR 0.87 MG/DL (0.70-1.30); GLOMERULAR FILTRATION RATE > 60.0 (>35); GLUCOSE, FASTING 144 MG/DL (74-106); POTASSIUM SERUM 4.2 MMOL/L (3.5-5.1); SODIUM LEVEL 133 MMOL/L (136-145)
[2024-12-10] MEDS: TORSEMIDE 20 MG TAB PO SCH (09:00)
[2024-12-10] MEDS ORDERED: POTASSIUM CHLORIDE 10MEQ SR TABLET PO SCH (09:00)
[2024-12-10] MEDS: APIXABAN 2.5 MG TAB (ELIQUIS) PO SCH (09:00)
[2024-12-10] MEDS: BREZTRI INH SCH (09:00)
[2024-12-10] MEDS ORDERED: APIXABAN 5 MG TAB (ELIQUIS) PO SCH ×2 (09:00→21:00)
[2024-12-10] MEDS ORDERED: PAXLOVID PO SCH (09:00)
[2024-12-10] MEDS ORDERED: guaiFENesin DM LIQ 10ML UD PO PRN (09:40)
[2024-12-10] MEDS: dexAMETHasone 20MG/5ML VIAL IV SCH (09:42)
[2024-12-10] MEDS: IPRATROPIUM 0.5MG/ALBUTEROL 2.5MG INH SOL UD 3ML (DUONEB) NEB SCH (13:19)
[2024-12-10] MEDS: REMDESIVIR 100 MG in NS 100 ML IV SCH (18:39)
[2024-12-10] MEDS: RAMELTEON 8 MG TAB (ROZEREM) PO ONE (21:00)
[2024-12-10] MEDS: ALPRAZolam 0.25 MG TAB PO SCH (21:16)
[2024-12-11] VITALS (32 sets, daily range): BP systolic 103–142; BP diastolic 51–71; TEMP 97.4–97.8; O2SAT 88–96
[2024-12-11] MEDS: OLANZapine INTRAMUSCULAR 10MG VIAL IM ONE ×2 (02:09→14:57)
[2024-12-11] MEDS: COMBIVENT RESPIMAT 100-20MCG INHALER 4GM INH SCH (08:00)
[2024-12-11 08:25] LABS: HEMATOCRIT 42.4 % (42.0-52.0); HEMOGLOBIN 14.5 g/dl (13.5-17.5); MEAN CORPUSCULAR HGB CONC 34.2 g/dl (32.0-36.5); MEAN CORPUSCULAR VOLUME 93.6 fl (80.0-96.0); PLATELET COUNT, AUTOMATED 232 10^3/uL (150-450); RED BLOOD COUNT 4.53 10^6/uL (4.30-6.10); WHITE BLOOD COUNT 27.8 10^3/uL (4.0-10.0)
[2024-12-11 08:54] LABS: BLOOD UREA NITROGEN 42 MG/DL (9-23); CALCIUM LEVEL 8.4 MG/DL (8.3-10.6); CARBON DIOXIDE LEVEL 27 MMOL/L (20-31); CHLORIDE LEVEL 106 MMOL/L (98-107); CREATININE FOR GFR 0.88 MG/DL (0.70-1.30); GLOMERULAR FILTRATION RATE > 60.0 (>35); GLUCOSE, FASTING 126 MG/DL (74-106); POTASSIUM SERUM 4.2 MMOL/L (3.5-5.1); SODIUM LEVEL 140 MMOL/L (136-145)
[2024-12-11 10:55] LABS: ATYPICAL LYMPH 9 % (0-5); LYMPHOCYTES 5 % (16-44); MONOCYTES 3 % (0-5); NEUTROPHILS 69 % (28-66)
[2024-12-11 10:57] LABS: PLATELET ESTIMATE NORMAL (NORMAL); POLYCHROMASIA 1+
[2024-12-11 15:21] LABS: KETONE, URINE AUTO RFX NEGATIVE (NEGATIVE); LEUKOCYTE ESTERASE UR AUTO RFX NEGATIVE (NEGATIVE); NITRITE, URINE AUTO RFX NEGATIVE (NEGATIVE); RBC, URINE AUTO RFX 4 /HPF (0-3); SQUAM EPITHELIAL CELL UR AURFX 0 /HPF (0-6); WBC, URINE AUTO RFX 1 /HPF (0-3)
[2024-12-11] MEDS: QUEtiapine FUMARATE 50MG TAB PO SCH (21:00)
[2024-12-11] MEDS ORDERED: QUEtiapine FUMARATE 25 MG TAB PO SCH (21:00)
[2024-12-12] VITALS (30 sets, daily range): BP systolic 108–128; BP diastolic 56–75; TEMP 96.9–98; O2SAT 90–97
[2024-12-12 06:43] LABS: HEMATOCRIT 41.3 % (42.0-52.0); HEMOGLOBIN 14.2 g/dl (13.5-17.5); MEAN CORPUSCULAR HEMOGLOBIN 32.2 pg (27.0-33.0); MEAN CORPUSCULAR HGB CONC 34.4 g/dl (32.0-36.5); MEAN CORPUSCULAR VOLUME 93.7 fl (80.0-96.0); PLATELET COUNT, AUTOMATED 165 10^3/uL (150-450); RED BLOOD COUNT 4.41 10^6/uL (4.30-6.10); WHITE BLOOD COUNT 22.3 10^3/uL (4.0-10.0)
[2024-12-12 07:07] LABS: BLOOD UREA NITROGEN 41 MG/DL (9-23); CALCIUM LEVEL 8.2 MG/DL (8.3-10.6); CARBON DIOXIDE LEVEL 28 MMOL/L (20-31); CHLORIDE LEVEL 107 MMOL/L (98-107); CREATININE FOR GFR 0.93 MG/DL (0.70-1.30); GLOMERULAR FILTRATION RATE > 60.0 (>35); GLUCOSE, FASTING 139 MG/DL (74-106); POTASSIUM SERUM 3.6 MMOL/L (3.5-5.1); SODIUM LEVEL 144 MMOL/L (136-145)
[2024-12-12 08:36] LABS: ABG HCO3 23.6 MMOL/L (22.0-26.0); ABG O2 SATURATION 92.4 % (95.0-99.0); ABG PARTIAL PRESSURE CO2 35.7 mmHg (35.0-45.0); ABG STANDARD HCO3 24.4 MMOL/L. (22.0-26.0); ABG TOTAL CO2 24.7 MMOL/L (23.0-31.0); ABG pH (ARTERIAL) 7.439 UNITS (7.350-7.450)
[2024-12-12] MEDS: cefTRIAXone SOD 1 GM in DEXTROSE 5% (D5W) ADV/MINI-BAG 50 ML IV SCH (10:14)
[2024-12-12] MEDS: QUEtiapine FUMARATE 25 MG TAB PO SCH (21:00)
[2024-12-13] VITALS (24 sets, daily range): BP systolic 119–126; BP diastolic 65–69; TEMP 97.3–98.3; O2SAT 89–97
[2024-12-13 06:59] LABS: HEMATOCRIT 42.6 % (42.0-52.0); HEMOGLOBIN 14.6 g/dl (13.5-17.5); MEAN CORPUSCULAR HEMOGLOBIN 32.4 pg (27.0-33.0); MEAN CORPUSCULAR HGB CONC 34.3 g/dl (32.0-36.5); MEAN CORPUSCULAR VOLUME 94.5 fl (80.0-96.0); PLATELET COUNT, AUTOMATED 175 10^3/uL (150-450); RED BLOOD COUNT 4.51 10^6/uL (4.30-6.10); WHITE BLOOD COUNT 21.7 10^3/uL (4.0-10.0)
[2024-12-13 07:21] LABS: BLOOD UREA NITROGEN 44 MG/DL (9-23); CALCIUM LEVEL 8.1 MG/DL (8.3-10.6); CARBON DIOXIDE LEVEL 29 MMOL/L (20-31); CHLORIDE LEVEL 112 MMOL/L (98-107); CREATININE FOR GFR 0.86 MG/DL (0.70-1.30); GLOMERULAR FILTRATION RATE > 60.0 (>35); GLUCOSE, FASTING 146 MG/DL (74-106); MAGNESIUM LEVEL 2.6 MG/DL (1.8-2.4); POTASSIUM SERUM 4.2 MMOL/L (3.5-5.1); SODIUM LEVEL 148 MMOL/L (136-145)
[2024-12-13 10:08] LABS: C REACTIVE PROTEIN QUANTITATIV 4.43 MG/DL (<1.0)
[2024-12-13 10:15] LABS: PROCALCITONIN 0.17 ng/ml
[2024-12-13] MEDS: POLYVINYL ALCOHOL OPHTH SOLN 15ML (LIQUITEARS) OU SCH (16:59)
[2024-12-13] MEDS: SODIUM CHLORIDE 0.9% 3ML NEB SOLUTION FOR INHALATION INH SCH (20:00)
[2024-12-13] MEDS: IPRATROPIUM 0.5MG/ALBUTEROL 2.5MG INH SOL UD 3ML (DUONEB) NEB SCH (20:00)
[2024-12-14] VITALS (18 sets, daily range): BP systolic 117–134; BP diastolic 58–87; TEMP 97.4–97.8; O2SAT 89–97
[2024-12-14 06:21] LABS: HEMATOCRIT 42.8 % (42.0-52.0); HEMOGLOBIN 14.1 g/dl (13.5-17.5); MEAN CORPUSCULAR HEMOGLOBIN 31.7 pg (27.0-33.0); MEAN CORPUSCULAR HGB CONC 32.9 g/dl (32.0-36.5); MEAN CORPUSCULAR VOLUME 96.2 fl (80.0-96.0); PLATELET COUNT, AUTOMATED 151 10^3/uL (150-450); RED BLOOD COUNT 4.45 10^6/uL (4.30-6.10); WHITE BLOOD COUNT 17.7 10^3/uL (4.0-10.0)
[2024-12-14 06:47] LABS: BLOOD UREA NITROGEN 40 MG/DL (9-23); CARBON DIOXIDE LEVEL 28 MMOL/L (20-31); CHLORIDE LEVEL 106 MMOL/L (98-107); CREATININE FOR GFR 0.66 MG/DL (0.70-1.30); GLOMERULAR FILTRATION RATE > 60.0 (>35); GLUCOSE, FASTING 145 MG/DL (74-106); POTASSIUM SERUM 4.7 MMOL/L (3.5-5.1); SODIUM LEVEL 140 MMOL/L (136-145)
[2024-12-14 19:42] LABS: URINE STREP PNEUMONIAE ANTIGEN NOT DETECTED (NOT DETECT)
[2024-12-15] VITALS (23 sets, daily range): BP systolic 111–131; BP diastolic 57–69; TEMP 97.1–97.5; O2SAT 90–96
[2024-12-15 06:02] LABS: HEMATOCRIT 43.8 % (42.0-52.0); HEMOGLOBIN 14.6 g/dl (13.5-17.5); MEAN CORPUSCULAR HEMOGLOBIN 31.5 pg (27.0-33.0); MEAN CORPUSCULAR HGB CONC 33.3 g/dl (32.0-36.5); MEAN CORPUSCULAR VOLUME 94.4 fl (80.0-96.0); PLATELET COUNT, AUTOMATED 135 10^3/uL (150-450); RED BLOOD COUNT 4.64 10^6/uL (4.30-6.10); WHITE BLOOD COUNT 17.6 10^3/uL (4.0-10.0)
[2024-12-15 06:18] LABS: BLOOD UREA NITROGEN 34 MG/DL (9-23); C REACTIVE PROTEIN QUANTITATIV 0.89 MG/DL (<1.0); CALCIUM LEVEL 8.1 MG/DL (8.3-10.6); CARBON DIOXIDE LEVEL 29 MMOL/L (20-31); CHLORIDE LEVEL 101 MMOL/L (98-107); CREATININE FOR GFR 0.59 MG/DL (0.70-1.30); GLOMERULAR FILTRATION RATE > 60.0 (>35); GLUCOSE, FASTING 137 MG/DL (74-106); POTASSIUM SERUM 4.6 MMOL/L (3.5-5.1); SODIUM LEVEL 135 MMOL/L (136-145)
[2024-12-15 06:29] LABS: PROCALCITONIN 0.09 ng/ml
[2024-12-15] MEDS: ALBUTEROL 90 MCG/ACT 8GM HFA INHALER INH PRN (08:02)
[2024-12-15] MEDS: CEFDINIR 300 MG CAP (OMNICEF) PO SCH (21:38)
[2024-12-16] VITALS (32 sets, daily range): BP systolic 105–131; BP diastolic 57–70; TEMP 97–97.9; O2SAT 91–95
[2024-12-16 06:06] LABS: HEMATOCRIT 45.1 % (42.0-52.0); HEMOGLOBIN 15.3 g/dl (13.5-17.5); MEAN CORPUSCULAR HEMOGLOBIN 31.9 pg (27.0-33.0); MEAN CORPUSCULAR HGB CONC 33.9 g/dl (32.0-36.5); MEAN CORPUSCULAR VOLUME 94.2 fl (80.0-96.0); PLATELET COUNT, AUTOMATED 125 10^3/uL (150-450); RED BLOOD COUNT 4.79 10^6/uL (4.30-6.10); WHITE BLOOD COUNT 20.1 10^3/uL (4.0-10.0)
[2024-12-16 06:36] LABS: BLOOD UREA NITROGEN 29 MG/DL (9-23); CALCIUM LEVEL 7.8 MG/DL (8.3-10.6); CARBON DIOXIDE LEVEL 30 MMOL/L (20-31); CHLORIDE LEVEL 102 MMOL/L (98-107); CREATININE FOR GFR 0.51 MG/DL (0.70-1.30); GLOMERULAR FILTRATION RATE > 60.0 (>35); GLUCOSE, FASTING 123 MG/DL (74-106); POTASSIUM SERUM 4.5 MMOL/L (3.5-5.1); SODIUM LEVEL 135 MMOL/L (136-145)
[2024-12-16 08:09] LABS: MAGNESIUM LEVEL 2.2 MG/DL (1.8-2.4); PHOSPHORUS LEVEL 2.6 MG/DL (2.4-5.1)
[2024-12-16] MEDS: dexAMETHasone 4 MG TAB PO SCH (09:19)
[2024-12-16] MEDS ORDERED: DEXA2TA PO (11:47)
[2024-12-16] MEDS ORDERED: CEFD300CAP PO (11:47)
[2024-12-16] MEDS: NYSTATIN 500,000U/5ML SUSP UDC SS SCH (18:41)
[2024-12-17] VITALS (9 sets, daily range): BP systolic 112–118; BP diastolic 59–64; TEMP 97.3–98.2; O2SAT 93–96
[2024-12-17 06:32] LABS: HEMATOCRIT 43.1 % (42.0-52.0); HEMOGLOBIN 14.9 g/dl (13.5-17.5); MEAN CORPUSCULAR HEMOGLOBIN 32.3 pg (27.0-33.0); MEAN CORPUSCULAR HGB CONC 34.6 g/dl (32.0-36.5); MEAN CORPUSCULAR VOLUME 93.3 fl (80.0-96.0); PLATELET COUNT, AUTOMATED 125 10^3/uL (150-450); RED BLOOD COUNT 4.62 10^6/uL (4.30-6.10); WHITE BLOOD COUNT 21.7 10^3/uL (4.0-10.0)
[2024-12-17 06:58] LABS: LYMPHOCYTES 3 % (16-44); MONOCYTES 3 % (0-5); NEUTROPHILS 94 % (28-66)
[2024-12-17 07:00] LABS: PLATELET ESTIMATE DECREASED (NORMAL)
[2024-12-17 07:04] LABS: ALBUMIN 1.4 G/DL (3.2-5.2); ALKALINE PHOSPHATASE 105 U/L (40-129); ALT/SGPT 49 U/L (7.0-40); AST/SGOT 45 U/L (<34); BILIRUBIN,TOTAL 0.6 MG/DL (0.3-1.2); BLOOD UREA NITROGEN 27 MG/DL (9-23); CALCIUM LEVEL 7.9 MG/DL (8.3-10.6); CARBON DIOXIDE LEVEL 30 MMOL/L (20-31); CHLORIDE LEVEL 102 MMOL/L (98-107); CREATININE FOR GFR 0.53 MG/DL (0.70-1.30); GLOMERULAR FILTRATION RATE > 60.0 (>35); GLUCOSE, FASTING 117 MG/DL (74-106); POTASSIUM SERUM 4.4 MMOL/L (3.5-5.1); SODIUM LEVEL 137 MMOL/L (136-145); TOTAL PROTEIN 4.9 G/DL (5.7-8.2)
[2024-12-17] MEDS: dexAMETHasone 2 MG TAB PO SCH (09:14)
[2024-12-17] MEDS ORDERED: CEFD300CAP PO (10:52)
[2024-12-17] MEDS ORDERED: DEXA2TA PO (10:52)
== END 2024-12-17 12:07 | DRG 177 ==
LOC: M ED 07:20 → M ED INP 12:34 → M PCU 17:27
PROVIDERS: ADMIT Student in an Organized Health Care Education/Training Program; ATTEND Internal Medicine
DX: U07.1 COVID-19 (principal); J96.01 Acute respiratory failure with hypoxia; J12.82 Pneumonia due to coronavirus disease 2019; G93.41 Metabolic encephalopathy; J14 Pneumonia due to Hemophilus influenzae; G92.8 Other toxic encephalopathy; J15.211 Pneumonia due to Methicillin susceptible Staphylococcus aureus; I50.32 Chronic diastolic (congestive) heart failure; J47.0 Bronchiectasis with acute lower respiratory infection; E87.1 Hypo-osmolality and hyponatremia; E87.20 Acidosis, unspecified; I27.20 Pulmonary hypertension, unspecified; K74.60 Unspecified cirrhosis of liver; I36.0 Nonrheumatic tricuspid (valve) stenosis; E78.5 Hyperlipidemia, unspecified; I48.91 Unspecified atrial fibrillation; R74.01 Elevation of levels of liver transaminase levels; R91.8 Other nonspecific abnormal finding of lung field; K57.90 Diverticulosis of intestine, part unspecified, without perforation or abscess without bleeding; Z95.2 Presence of prosthetic heart valve; Z98.49 Cataract extraction status, unspecified eye; Z79.899 Other long term (current) drug therapy; Z79.01 Long term (current) use of anticoagulants; R13.10 Dysphagia, unspecified

== ENCOUNTER 2024-12-16 10:42 | Inpatient (IN) | payer MEDICARE ==
[~2024-12-16] VITALS: Ht 172.7 cm; Wt 72.0 kg
[~2024-12-16 10:42] MED LIST changes: +ALBU2.5V10 INH; +CETI-24 PO; +D3 S1CAP3 PO; +ELIQ5TAB PO; +EPLE25TA15 PO; +NIRM1TAB14 PO; +POTA1TAB23 PO; +TORS20TA2 PO
[2024-12-16] MEDS ORDERED: CEFD300CAP PO (11:47)
[2024-12-16] MEDS ORDERED: DEXA2TA PO (11:47)
[2024-12-16] MEDS ORDERED: ONDANSETRON 4MG ORAL DISINTEGRATING TAB PO PRN (12:55)
[2024-12-16] MEDS ORDERED: ACETYLCYSTEINE 10% 30ML VIAL INH PRN (12:55)
[2024-12-16] MEDS ORDERED: BISACODYL 5MG TAB PO PRN (12:55)
[2024-12-16] MEDS ORDERED: MOM 30ML SUSPENSION UDC PO PRN (12:55)
[2024-12-16] MEDS ORDERED: MIRALAX *UNIT DOSE* 17GM PACKET PO PRN (12:55)
[2024-12-16] MEDS ORDERED: MAALOX 30 ML SUSP *UDC PO PRN (12:55)
[2024-12-16] MEDS ORDERED: BISACODYL 10MG SUPP PR PRN (12:55)
[2024-12-16] MEDS ORDERED: POLYVINYL ALCOHOL OPHTH SOLN 15ML (LIQUITEARS) OU PRN (12:55)
[2024-12-16] MEDS ORDERED: SIMETHICONE 80MG CHEW TAB PO PRN (12:55)
[2024-12-16] MEDS ORDERED: ACETAMINOPHEN 325 MG TAB PO PRN (12:55)
[2024-12-16] MEDS ORDERED: SODIUM CHLORIDE NASAL 0.65% SPRAY BTL (OCEAN) SCH (16:00)
[2024-12-16] MEDS ORDERED: APIXABAN 2.5 MG TAB (ELIQUIS) PO SCH (21:00)
[2024-12-16] MEDS ORDERED: CEFDINIR 300 MG CAP (OMNICEF) PO SCH (21:00)
[2024-12-16] MEDS ORDERED: ENTER DRUG NAME HERE (PATIENT'S OWN MED) INH SCH (21:00)
[2024-12-16] MEDS ORDERED: CARVedilol 3.125 MG TAB PO SCH (21:00)
[2024-12-17] MEDS ORDERED: CEFD300CAP PO (10:52)
[2024-12-17] MEDS ORDERED: DEXA2TA PO (10:52)
[2024-12-17 12:27] VITALS: BP 150/65; TEMP 96.8; O2SAT 95
[2024-12-17] MEDS ORDERED: DEXTROMETHORPHAN 60MG/10ML SUSP 90ML BTL(DELSYM) PO PRN (14:00)
[2024-12-17] MEDS: CETIRIZINE (ZyrTEC) 10 MG TAB PO SCH (14:10)
[2024-12-17] MEDS: ALBUTEROL 90 MCG/ACT 8GM HFA INHALER INH SCH (15:57)
[2024-12-17] MEDS: SODIUM CHLORIDE NASAL 0.65% SPRAY BTL (OCEAN) SCH (16:00)
[2024-12-17] MEDS ORDERED: ALBUTEROL SULFATE 2.5MG/0.5ML INH NEB SOLN INH SCH (16:00)
[2024-12-17] MEDS: NYSTATIN 500,000U/5ML SUSP UDC SS SCH (17:37)
[2024-12-17 20:00] VITALS: BP_SYST 126; BP_SYST 134; BP_DIAS 58; BP_DIAS 69; TEMP 97.4; O2SAT 93
[2024-12-17] MEDS: CARVedilol 3.125 MG TAB PO SCH (20:29)
[2024-12-17] MEDS: CEFDINIR 300 MG CAP (OMNICEF) PO SCH (20:29)
[2024-12-17] MEDS: APIXABAN 2.5 MG TAB (ELIQUIS) PO SCH (20:30)
[2024-12-17] MEDS: QUEtiapine FUMARATE 25 MG TAB PO SCH (20:30)
[2024-12-18 04:00] VITALS: BP 126/65; TEMP 97.3; O2SAT 94
[2024-12-18] MEDS: POTASSIUM CHLORIDE 10MEQ SR TABLET PO SCH (09:06)
[2024-12-18] MEDS: TORSEMIDE 20 MG TAB PO SCH (09:07)
[2024-12-18] MEDS: dexAMETHasone 2 MG TAB PO SCH (09:08)
[2024-12-18] MEDS: TIOTROPIUM INHALER/CAPSULE (SPIRIVA) INH SCH (11:55)
[2024-12-18] MEDS: SYMBICORT 160/4.5MCG INHALER 6GM INH SCH (11:56)
[2024-12-18 12:00] VITALS: BP 136/70; TEMP 97.3; O2SAT 94
[2024-12-18] MEDS: guaiFENesin ER TABLET 600 MG TAB PO SCH (14:53)
[2024-12-18 16:02] LABS: KETONE, URINE AUTO RFX NEGATIVE (NEGATIVE); LEUKOCYTE ESTERASE UR AUTO RFX NEGATIVE (NEGATIVE); MUCUS, URINE RFX SMALL (NEGATIVE); NITRITE, URINE AUTO RFX NEGATIVE (NEGATIVE); RBC, URINE AUTO RFX 0 /HPF (0-3); SQUAM EPITHELIAL CELL UR AURFX 0 /HPF (0-6); WBC, URINE AUTO RFX 0 /HPF (0-3)
[2024-12-18 20:00] VITALS: BP 99/61; TEMP 97.1; O2SAT 95
[2024-12-19 04:00] VITALS: BP 135/64; TEMP 97.8; O2SAT 94
[2024-12-19 12:00] VITALS: BP 109/54; TEMP 97.9; O2SAT 97
[2024-12-19 20:00] VITALS: BP 121/58; TEMP 97.6; O2SAT 98
[2024-12-20 04:00] VITALS: BP 123/59; TEMP 97; O2SAT 95
[2024-12-20 08:17] VITALS: BP 130/58; TEMP 97.6; O2SAT 97
[2024-12-20 12:00] VITALS: BP 117/57; TEMP 97.8; O2SAT 96
[2024-12-20 20:53] VITALS: BP 132/68; TEMP 97.6; O2SAT 93
[2024-12-21 04:55] VITALS: BP 137/63; TEMP 97.5; O2SAT 94
[2024-12-21 12:00] VITALS: BP 116/56; TEMP 98; O2SAT 97
[2024-12-21 20:38] VITALS: BP 132/62; TEMP 97.4; O2SAT 96
[2024-12-22 05:33] VITALS: BP 125/58; TEMP 97.5; O2SAT 95
[2024-12-22 12:00] VITALS: BP 104/55; TEMP 98.6; O2SAT 95
[2024-12-22 20:00] VITALS: BP 125/57; TEMP 97; O2SAT 94
[2024-12-23 04:22] VITALS: BP 116/59; TEMP 97.9; O2SAT 92
[2024-12-23 11:26] LABS: HEMOGLOBIN 14.1 g/dl (13.5-17.5); MEAN CORPUSCULAR HEMOGLOBIN 32.8 pg (27.0-33.0); MEAN CORPUSCULAR HGB CONC 34.4 g/dl (32.0-36.5); MEAN CORPUSCULAR VOLUME 95.3 fl (80.0-96.0); PLATELET COUNT, AUTOMATED 144 10^3/uL (150-450); WHITE BLOOD COUNT 21.9 10^3/uL (4.0-10.0)
[2024-12-23 12:00] VITALS: BP 118/60; TEMP 97.6; O2SAT 94
[2024-12-23 12:22] LABS: ATYPICAL LYMPH 10 % (0-5); EOSINOPHILS 2 % (0-3); LYMPHOCYTES 4 % (16-44); MONOCYTES 1 % (0-5); MYELOCYTES 1 % (0-0); NEUTROPHILS 81 % (28-66)
[2024-12-23 12:23] LABS: PLATELET ESTIMATE DECREASED (NORMAL)
[2024-12-23 12:30] LABS: BLOOD UREA NITROGEN 25 MG/DL (9-23); CARBON DIOXIDE LEVEL 28 MMOL/L (20-31); CHLORIDE LEVEL 106 MMOL/L (98-107); CREATININE FOR GFR 0.56 MG/DL (0.70-1.30); GLOMERULAR FILTRATION RATE > 60.0 (>35); GLUCOSE, FASTING 93 MG/DL (74-106); SODIUM LEVEL 137 MMOL/L (136-145)
[2024-12-23] MEDS: LOPERAMIDE 2 MG CAPLET PO PRN (13:02)
[2024-12-23] MEDS: ALBUTEROL 90 MCG/ACT 8GM HFA INHALER INH PRN (19:41)
[2024-12-23 20:00] VITALS: BP 126/60; TEMP 97.6; O2SAT 93
[2024-12-24 04:28] VITALS: BP 121/57; TEMP 97.8; O2SAT 96
[2024-12-24 10:02] LABS: BASO # 0.1 10^3/uL (0.0-0.2); BASO % 0.5 % (0.0-1.0); EOS # 0.1 10^3/uL (0.0-0.5); EOS % 0.3 % (0.0-3.0); HEMATOCRIT 37.8 % (42.0-52.0); HEMOGLOBIN 12.9 g/dl (13.5-17.5); LYMPH # 1.2 10^3/uL (1.5-5.0); LYMPH % 5.7 % (24.0-44.0); MEAN CORPUSCULAR HEMOGLOBIN 32.3 pg (27.0-33.0); MEAN CORPUSCULAR HGB CONC 34.1 g/dl (32.0-36.5); MEAN CORPUSCULAR VOLUME 94.7 fl (80.0-96.0); MONO # 1.2 10^3/uL (0.0-0.8); MONO % 5.7 % (2.0-8.0); NEUTROPHILS # 16.9 10^3/uL (1.5-8.5); NEUTROPHILS % 83.7 % (36.0-66.0); PLATELET COUNT, AUTOMATED 110 10^3/uL (150-450); RED BLOOD COUNT 3.99 10^6/uL (4.30-6.10); WHITE BLOOD COUNT 20.2 10^3/uL (4.0-10.0)
[2024-12-24 12:00] VITALS: BP 109/50; TEMP 99.6; O2SAT 95
[2024-12-24 20:00] VITALS: BP 114/54; TEMP 98.8; O2SAT 95
[2024-12-25 04:00] VITALS: BP 118/64; TEMP 97.5; O2SAT 96
[2024-12-25 08:02] LABS: BASO # 0.1 10^3/uL (0.0-0.2); BASO % 0.4 % (0.0-1.0); EOS # 0.1 10^3/uL (0.0-0.5); EOS % 0.5 % (0.0-3.0); HEMATOCRIT 37.2 % (42.0-52.0); HEMOGLOBIN 12.6 g/dl (13.5-17.5); LYMPH # 1.3 10^3/uL (1.5-5.0); LYMPH % 7.9 % (24.0-44.0); MEAN CORPUSCULAR HEMOGLOBIN 32.2 pg (27.0-33.0); MEAN CORPUSCULAR HGB CONC 33.9 g/dl (32.0-36.5); MEAN CORPUSCULAR VOLUME 95.1 fl (80.0-96.0); MONO # 0.8 10^3/uL (0.0-0.8); MONO % 5.2 % (2.0-8.0); NEUTROPHILS # 13.3 10^3/uL (1.5-8.5); NEUTROPHILS % 82.9 % (36.0-66.0); PLATELET COUNT, AUTOMATED 112 10^3/uL (150-450); RED BLOOD COUNT 3.91 10^6/uL (4.30-6.10); WHITE BLOOD COUNT 16.1 10^3/uL (4.0-10.0)
[2024-12-25 11:31] VITALS: BP 139/67; TEMP 97.4; O2SAT 94
[2024-12-25 12:00] VITALS: BP 98/50; TEMP 98.6; O2SAT 97
[2024-12-25 19:49] VITALS: BP 108/54; TEMP 98.4; O2SAT 96
[2024-12-26 04:15] VITALS: BP 104/57; TEMP 97.7; O2SAT 96
[2024-12-26 06:11] LABS: BASO # 0.1 10^3/uL (0.0-0.2); BASO % 0.4 % (0.0-1.0); EOS # 0.1 10^3/uL (0.0-0.5); EOS % 0.9 % (0.0-3.0); HEMATOCRIT 33.9 % (42.0-52.0); HEMOGLOBIN 11.5 g/dl (13.5-17.5); LYMPH # 1.1 10^3/uL (1.5-5.0); LYMPH % 9.5 % (24.0-44.0); MEAN CORPUSCULAR HGB CONC 33.9 g/dl (32.0-36.5); MEAN CORPUSCULAR VOLUME 94.4 fl (80.0-96.0); MONO # 0.6 10^3/uL (0.0-0.8); MONO % 5.4 % (2.0-8.0); NEUTROPHILS # 9.5 10^3/uL (1.5-8.5); NEUTROPHILS % 81.2 % (36.0-66.0); PLATELET COUNT, AUTOMATED 103 10^3/uL (150-450); RED BLOOD COUNT 3.59 10^6/uL (4.30-6.10); WHITE BLOOD COUNT 11.7 10^3/uL (4.0-10.0)
[2024-12-26 12:00] VITALS: BP 128/54; TEMP 98; O2SAT 96
[2024-12-26] MEDS ORDERED: LOPE2CA PO (14:28)
[2024-12-26] MEDS ORDERED: ALBU2.5V10 INH (14:28)
[2024-12-26] MEDS ORDERED: CARV3.12 PO (14:28)
[2024-12-26] MEDS ORDERED: POTA-136 PO (14:28)
[2024-12-26] MEDS ORDERED: MUCI600T31 PO (14:28)
[2024-12-26] MEDS ORDERED: QUET1TAB17 PO (14:28)
[2024-12-26] MEDS ORDERED: DELS30LI8 PO (14:28)
[2024-12-26] MEDS ORDERED: ELIQ5TAB PO (14:28)
[2024-12-26 17:14] VITALS: BP 128/72
[2024-12-26 19:47] VITALS: BP 127/58; TEMP 98.7; O2SAT 94
[2024-12-27 04:59] VITALS: BP 101/50; TEMP 97.9; O2SAT 93
[2024-12-27 08:36] VITALS: BP 114/56
[2024-12-27 11:44] VITALS: BP 113/58; TEMP 97.6; O2SAT 95
== END 2024-12-27 15:30 | disposition home health service (06) | DRG 70 ==
LOC: M PM&R 12-17 12:10
PROVIDERS: ADMIT Physical Medicine & Rehabilitation; ATTEND Physical Medicine & Rehabilitation
DX: G93.41 Metabolic encephalopathy (principal); J96.01 Acute respiratory failure with hypoxia; U07.1 COVID-19; J12.82 Pneumonia due to coronavirus disease 2019; J15.211 Pneumonia due to Methicillin susceptible Staphylococcus aureus; J14 Pneumonia due to Hemophilus influenzae; I50.32 Chronic diastolic (congestive) heart failure; B37.0 Candidal stomatitis; I48.91 Unspecified atrial fibrillation; Z79.01 Long term (current) use of anticoagulants; K74.60 Unspecified cirrhosis of liver; R13.12 Dysphagia, oropharyngeal phase; Z79.899 Other long term (current) drug therapy; Z88.8 Allergy status to other drugs, medicaments and biological substances; J47.9 Bronchiectasis, uncomplicated; R19.7 Diarrhea, unspecified; R30.0 Dysuria

== ENCOUNTER → 2025-01-10 | Outpatient (CLI) | payer MEDICARE ==
[~2025-01-10] MED LIST changes: +DELS30LI8 PO; +DEXA2TA PO; +LOPE2CA PO; +MUCI600T31 PO; +POTA-136 PO; +QUET1TAB17 PO
== END ==
LOC: M ADAMS 12:31
PROVIDERS: ATTEND Family Medicine
DX: J18.9 Pneumonia, unspecified organism (principal)

== ENCOUNTER → 2025-01-10 | Outpatient (REF) | payer MEDICARE ==
[2025-01-10 19:30] LABS: HEMATOCRIT 42.1 % (42.0-52.0); HEMOGLOBIN 13.4 g/dl (13.5-17.5); MEAN CORPUSCULAR HEMOGLOBIN 32.1 pg (27.0-33.0); MEAN CORPUSCULAR HGB CONC 31.8 g/dl (32.0-36.5); MEAN CORPUSCULAR VOLUME 100.7 fl (80.0-96.0); PLATELET COUNT, AUTOMATED 311 10^3/uL (150-450); RED BLOOD COUNT 4.18 10^6/uL (4.30-6.10); WHITE BLOOD COUNT 13.2 10^3/uL (4.0-10.0)
[2025-01-10 20:07] LABS: ALBUMIN 1.9 G/DL (3.2-5.2); ALKALINE PHOSPHATASE 153 U/L (40-129); ALT/SGPT 34 U/L (7.0-40); AST/SGOT 59 U/L (<34); BILIRUBIN,TOTAL 0.3 MG/DL (0.3-1.2); BLOOD UREA NITROGEN 17 MG/DL (9-23); CALCIUM LEVEL 8.3 MG/DL (8.3-10.6); CARBON DIOXIDE LEVEL 23 MMOL/L (20-31); CHLORIDE LEVEL 100 MMOL/L (98-107); CREATININE FOR GFR 0.65 MG/DL (0.70-1.30); GLOMERULAR FILTRATION RATE > 60.0 (>35); GLUCOSE, FASTING 84 MG/DL (74-106); POTASSIUM SERUM 5.4 MMOL/L (3.5-5.1); SODIUM LEVEL 137 MMOL/L (136-145); TOTAL PROTEIN 5.7 G/DL (5.7-8.2)
== END ==
LOC: M SFHCADAM 12:00
PROVIDERS: ATTEND Family Medicine
DX: J18.9 Pneumonia, unspecified organism (principal); E88.09 Other disorders of plasma-protein metabolism, not elsewhere classified; I50.810 Right heart failure, unspecified

== ENCOUNTER → 2025-01-29 | Outpatient (REF) | payer MEDICARE ==
[2025-01-29 13:25] LABS: ALBUMIN 2.5 G/DL (3.2-5.2); ALKALINE PHOSPHATASE 124 U/L (40-129); ALT/SGPT 27 U/L (7.0-40); AST/SGOT 43 U/L (<34); BILIRUBIN,TOTAL 0.6 MG/DL (0.3-1.2); BLOOD UREA NITROGEN 22 MG/DL (9-23); CALCIUM LEVEL 8.6 MG/DL (8.3-10.6); CARBON DIOXIDE LEVEL 32 MMOL/L (20-31); CHLORIDE LEVEL 100 MMOL/L (98-107); CREATININE FOR GFR 0.71 MG/DL (0.70-1.30); GLOMERULAR FILTRATION RATE > 60.0 (>35); GLUCOSE, FASTING 95 MG/DL (74-106); POTASSIUM SERUM 3.9 MMOL/L (3.5-5.1); SODIUM LEVEL 140 MMOL/L (136-145); TOTAL PROTEIN 6.3 G/DL (5.7-8.2)
== END ==
LOC: M SHH 11:41 → M LAB REF 11:41
PROVIDERS: ATTEND Internal Medicine Cardiovascular Disease
DX: I50.33 Acute on chronic diastolic (congestive) heart failure (principal)

== ENCOUNTER → 2025-02-14 | Outpatient (REF) | payer MEDICARE ==
[2025-02-14 17:11] LABS: HEMATOCRIT 40.5 % (42.0-52.0); HEMOGLOBIN 13.2 g/dl (13.5-17.5); MEAN CORPUSCULAR HEMOGLOBIN 31.6 pg (27.0-33.0); MEAN CORPUSCULAR HGB CONC 32.6 g/dl (32.0-36.5); MEAN CORPUSCULAR VOLUME 96.9 fl (80.0-96.0); PLATELET COUNT, AUTOMATED 165 10^3/uL (150-450); RED BLOOD COUNT 4.18 10^6/uL (4.30-6.10); WHITE BLOOD COUNT 7.6 10^3/uL (4.0-10.0)
[2025-02-14 17:42] LABS: ALBUMIN 2.6 G/DL (3.2-5.2); ALKALINE PHOSPHATASE 121 U/L (40-129); ALT/SGPT 28 U/L (7.0-40); AST/SGOT 59 U/L (<34); BILIRUBIN,TOTAL 0.6 MG/DL (0.3-1.2); BLOOD UREA NITROGEN 18 MG/DL (9-23); CALCIUM LEVEL 8.6 MG/DL (8.3-10.6); CARBON DIOXIDE LEVEL 26 MMOL/L (20-31); CHLORIDE LEVEL 99 MMOL/L (98-107); CREATININE FOR GFR 0.67 MG/DL (0.70-1.30); GLOMERULAR FILTRATION RATE > 60.0 (>35); GLUCOSE, FASTING 75 MG/DL (74-106); POTASSIUM SERUM 4.9 MMOL/L (3.5-5.1); SODIUM LEVEL 137 MMOL/L (136-145); TOTAL PROTEIN 6.6 G/DL (5.7-8.2)
== END ==
LOC: M SFHCADAM 15:07
PROVIDERS: ATTEND Family Medicine
DX: J47.0 Bronchiectasis with acute lower respiratory infection (principal); I50.810 Right heart failure, unspecified

== ENCOUNTER → 2025-02-14 | Outpatient (CLI) | payer MEDICARE | LOC: M ADAMS 15:10 | PROVIDERS: ATTEND Family Medicine | DX: J47.0 Bronchiectasis with acute lower respiratory infection (principal) ==

== ENCOUNTER → 2025-02-27 | Outpatient (REF) | payer MEDICARE | LOC: M SFHCADAM 10:12 | PROVIDERS: ATTEND Family Medicine | DX: R05.3 Chronic cough (principal) ==

== ENCOUNTER → 2025-04-03 | Outpatient (CLI) | payer MEDICARE ==
[~2025-04-03] MED LIST changes: -AMBI5TAB PO; +ZOLP-532 PO
== END ==
LOC: M PLAIMG 09:59
PROVIDERS: ATTEND Internal Medicine Pulmonary Disease
DX: R91.8 Other nonspecific abnormal finding of lung field (principal)

== ENCOUNTER → 2025-08-19 | Outpatient (REF) | payer MEDICARE ==
[~2025-08-19] MED LIST changes: -NIRM1TAB14 PO; +NIRM1TAB16 PO
[2025-08-19 19:16] LABS: CALCIUM LEVEL 8.2 MG/DL (8.3-10.6); CARBON DIOXIDE LEVEL 30 MMOL/L (20-31); CHLORIDE LEVEL 103 MMOL/L (98-107); CREATININE FOR GFR 0.67 MG/DL (0.70-1.30); GLOMERULAR FILTRATION RATE > 90.0 (>35); POTASSIUM SERUM 4.5 MMOL/L (3.5-5.1); SODIUM LEVEL 138 MMOL/L (136-145)
== END ==
LOC: M SFHCLERA 14:35
PROVIDERS: ATTEND Family Medicine
DX: R63.5 Abnormal weight gain (principal); I50.810 Right heart failure, unspecified

== ENCOUNTER → 2025-09-18 | Outpatient (REF) | payer MEDICARE ==
[2025-09-18 17:39] LABS: PLATELET COUNT, AUTOMATED 149 10^3/uL (150-450)
[2025-09-18 18:05] LABS: ALT/SGPT 24.0 U/L (7.0-40); AST/SGOT 42.0 U/L (<34); CALCIUM LEVEL 8.6 MG/DL (8.3-10.6); CARBON DIOXIDE LEVEL 34.0 MMOL/L (20-31); CHLORIDE LEVEL 100.0 MMOL/L (98-107); CHOLESTEROL LEVEL 144.0 MG/DL (<200); CHOLESTEROL RISK RATIO 3.77 (<5); CREATININE FOR GFR 0.77 MG/DL (0.70-1.30); GLOMERULAR FILTRATION RATE 89.4 (>35); LDL CHOLESTEROL 83.7 MG/DL (<100); NON-HDL-C 105.9 MG/DL; POTASSIUM SERUM 4.1 MMOL/L (3.5-5.1); SODIUM LEVEL 141.0 MMOL/L (136-145); TRIGLYCERIDES LEVEL 111.0 MG/DL (<150)
[2025-09-18 18:06] LABS: FREE T4 1.12 NG/DL (0.89-1.76)
== END ==
LOC: M SFHCADAM 10:47
PROVIDERS: ATTEND Family Medicine
DX: K74.60 Unspecified cirrhosis of liver (principal); E78.5 Hyperlipidemia, unspecified; R25.1 Tremor, unspecified